=== PATIENT | male | born 1945 | race Caucasian/White ===

== ENCOUNTER 2016-04-22 06:22 | Outpatient (CLI) | payer OTHER, MEDICARE ==
[~2016-04-22] VITALS: Ht 175.3 cm; Wt 97.5 kg
[~2016-04-22 06:22] MED LIST: ASPI-586 PO; ASPI-983 PO; CEFD300C3 PO; CHOL200025 PO; CHRM1TAB PO; CINN500C2 PO; FAMO-119 PO; GLYB1TAB18 PO; HYDR-3812 PO; LISI10TA2 PO; MULT1TAB69 PO; TURM500C4 PO; [UNRECOGNIZED DRUG - OTHER] PO
--- OUTSIDE RECORDS SUMMARY | 2016-04-22 06:25 | XMS REPORT | Continuity of Care Document ---
Author Author [facility] Organization [facility] Address Unknown Phone Unavailable Support Name Relationship Address Phone VIELKA MENDOZA MD Caregiver #1 [facility] [place] [place] [address] Insurance Providers Payer Name Policy Number Subscriber Name Relationship [place] [employer] [id number] Jeni Campoverde 19 Self / Same As Patient Advance Directives Directive Response Recorded Date/Time Advance Directives No 03/31/16 11:06am Health Care Power of Vice President Commercial Bank No 03/31/16 11:06am Organ Donor No 03/31/16 [...] - 99.5) 03/29/2016 5:18pm Temperature (Calculated Celsius) 36.46963 degrees C (36.4 - 37.5) 03/29/2016 4:00pm [...] 9.00 inches 03/31/2016 11:05am Height (Calculated Centimeters) 175.645111 cm 03/31/2016 11:05am Weight (Pounds) 236 pounds 03/31/2016 11:05am Weight (Ounces) 0.0 oz 03/31/2016 11:05am Weight (Calculated Grams) 910542.80 gm 03/31/2016 11:05am Weight (Calculated Kilograms) 107.322492 kilograms 03/31/2016 11:05am Calculated BMI 34.9 03/31/2016 11:05am Results Pending Laboratory Results Test Name Collection Date/Time Procedures Procedure Status Date Provider(s) Tracing only of electrocardiogram Completed 03/27/16 VIELKA MENDOZA MD Encounters Encounter Location Arrival/Admit Date Discharge/Depart Date Attending Provider Departed Clinic [facility] 03/31/16 10:00am 03/31/16 11: 15am VIELKA MENDOZA MD Discharged Inpatient [facility] 03/26/16 11:56pm 6:05pm VIELKA MENDOZA MD Departed Clinic [facility] 03/22/16 1:18pm 03/22/16 3: 00pm AREN ANTHONY DO
== END 2016-04-22 10:56 ==
LOC: PREOP 06:22
PROVIDERS: ATTEND Surgery
DX: Z01.818 Encounter for other preprocedural examination (principal); C18.9 Malignant neoplasm of colon, unspecified; C78.7 Secondary malignant neoplasm of liver and intrahepatic bile duct

== ENCOUNTER 2016-04-23 05:52 | Day surgery (SDC) | payer OTHER, MEDICARE ==
[~2016-04-23] VITALS: Ht 175.3 cm; Wt 97.5 kg
--- OUTSIDE RECORDS SUMMARY | 2016-04-23 05:55 | XMS REPORT | Continuity of Care Document ---
Author Author [facility] Organization [facility] Address Unknown Phone Unavailable Support Name Relationship Address Phone VIELKA MENDOZA MD Caregiver #1 [facility] [place] [address] [place] [address] Insurance Providers Payer Name Policy Number Subscriber Name Relationship [place] [employer] [id number] Jeni Campoverde 19 Self / Same As Patient Advance Directives Directive Response Recorded Date/Time Advance Directives No 03/31/16 11:06am Health Care Power of Director Of Recruitment No 03/31/16 11:06am Organ Donor No 03/31/16 [...] - 99.5) 03/29/2016 5:18pm Temperature (Calculated Celsius) 36.31548 degrees C (36.4 - 37.5) 03/29/2016 4:00pm [...] 9.00 inches 03/31/2016 11:05am Height (Calculated Centimeters) 175.122703 cm 03/31/2016 11:05am Weight (Pounds) 236 pounds 03/31/2016 11:05am Weight (Ounces) 0.0 oz 03/31/2016 11:05am Weight (Calculated Grams) 082464.80 gm 03/31/2016 11:05am Weight (Calculated Kilograms) 107.410118 kilograms 03/31/2016 11:05am Calculated BMI 34.9 03/31/2016 11:05am Results Pending Laboratory Results Test Name Collection Date/Time Procedures Procedure Status Date Provider(s) Tracing only of electrocardiogram Completed 03/27/16 VIELKA MENDOZA MD Encounters Encounter Location Arrival/Admit Date Discharge/Depart Date Attending Provider Departed Clinic [facility] 03/31/16 10:00am 03/31/16 11: 15am VIELKA MENDOZA MD Discharged Inpatient [facility] 03/26/16 11:56pm 6:05pm VIELKA MENDOZA MD Departed Clinic [facility] 03/22/16 1:18pm 03/22/16 3: 00pm AREN ANTHONY DO
[2016-04-23] MEDS ORDERED: LACTATED RINGERS 1,000 ML IV PRN (06:27)
[2016-04-23] MEDS ORDERED: FAMOTIDINE 20MG/2ML IV (PEPCID) IV ONE (06:30)
[2016-04-23] MEDS ORDERED: ceFAZolin 2 GM IV (SDC ONLY) 50 ML ONE (06:34)
[2016-04-23] MEDS ORDERED: DEXTROSE 50% 50 ML (IMS) SYR IV ONE (06:45)
[2016-04-23] MEDS ORDERED: ceFAZolin 2GM/50 ML DEXTROSE (PREMIX) IV ONE (07:15)
[2016-04-23] MEDS ORDERED: BUP/EPI 0.25% 1:200,000 (MARCAINE) 30 ML VIAL ONE (07:17)
[2016-04-23] MEDS ORDERED: HEParin (CENTRAL IV FLUSH) 500 UNIT/5 ML SYR ONE (07:17)
[2016-04-23] MEDS ORDERED: fentaNYL INJECTION 100 MCG/2 ML AMP ONE (07:18)
[2016-04-23] MEDS ORDERED: proPOfol 200 MG/20 ML (DIPRIVAN) VIAL IV ONE (07:18)
[2016-04-23] MEDS ORDERED: MIDAZOLAM 2 MG/2 ML (VERSED) VIAL ONE (07:19)
[2016-04-23 07:43] VITALS: BP 118/69
--- NOTE | 2016-04-23 07:43 | Progress Note-Pre Operative ---
Pre-Operative Progress Note H&P Reviewed The H&P was reviewed, patient examined and no changes noted. Date H&P Reviewed: Apr 23, 2016 Time H&P Reviewed: 07:42 Pre-Operative Diagnosis: Metastatic colon cancer VIELKA MENDOZA MD Apr 23, 2016 7:43 am
[2016-04-23] MEDS ORDERED: BUP/EPI 0.25% 1:200,000 (MARCAINE) 30 ML VIAL INJ ONE (08:09)
[2016-04-23] MEDS ORDERED: HEParin (CENTRAL IV FLUSH) 500 UNIT/5 ML SYR IV ONE (08:20)
[2016-04-23] MEDS ORDERED: SEVOFLURANE (ULTANE) 15 ML INHAL SOLN ONE (08:36)
[2016-04-23] MEDS ORDERED: ONDANSETRON 4 MG/2 ML (SDV) Z0FRAN ONE (08:36)
[2016-04-23] MEDS ORDERED: LIDOCAINE PF 2% 10 ML (XYLOCAINE) AMP ONE (08:41)
--- NOTE | 2016-04-23 08:41 | Progress Note-Post Operative ---
Post-Operative Progess Note Pre-Operative Diagnosis METASTATIC COLON CANCER Post-Operative Diagnosis SAME Post-Op Procedure Note Date of Procedure: Apr 23, 2016 Name of Procedure: Aanloq-a-Vhdx placement Anesthesia Type Gen. VIELKA MENDOZA MD Apr 23, 2016 8:41 am
--- NOTE | 2016-04-23 08:42 | Discharge Inst-Simple/Standard ---
Discharge Inst-Standard Discharge Medications New, Converted or Re-Newed RX: Other Patient Instructions/Follow Up Plan of Care/Instructions/FU: dressings off in 48 hours. May use the port. Please remove the existing PICC line prior to discharge Activity as Tolerated: Yes Discharge Diet: VIELKA Perez MD Apr 23, 2016 8:42 am
[2016-04-23] MEDS ORDERED: LACTATED RINGERS 1,000 ML IV ONE (08:57)
[2016-04-23] MEDS ORDERED: morphine INJ 10 MG/ML 1ML (SYR OR VIAL) IV PRN (09:00)
[2016-04-23] MEDS ORDERED: fentaNYL INJECTION 100 MCG/2 ML AMP IV PRN (09:00)
[2016-04-23] MEDS ORDERED: ONDANSETRON 4 MG/2 ML (SDV) Z0FRAN IV ONE (09:00)
[2016-04-23 09:35] VITALS: BP 95/54
[2016-04-23 10:35] VITALS: BP_SYST 101; BP_SYST 102; BP_DIAS 55; BP_DIAS 56
--- NOTE | 2016-04-23 12:44 | Diagnostic Imaging Report ---
Intraoperative view of the chest. INDICATION: Port placement. Fluoroscopic time provided is 34 seconds. IMPRESSION: Provided image demonstrates part of a right IJ port catheter placed. Dictated by: Dictated on workstation # [id number]
--- NOTE | 2016-04-24 08:52 | OPERATIVE REPORT ---
PROCEDURE PHYSICIAN: VIELKA MENDOZA DATE OF PROCEDURE: 04/23/2016 PREOPERATIVE DIAGNOSIS: Metastatic colon cancer. POSTOPERATIVE DIAGNOSIS: Metastatic colon cancer. OPERATION: 1. Ultrasound localization of right internal jugular vein. 2. Intraoperative fluoroscopy. 3. Waqdmp-u-Xsbd placement. SURGEON: Dr. Mendoza. ANESTHESIA: General anesthesia. BLOOD LOSS: Minimal. FLUIDS: 500 mL crystalloids. TYPE OF WOUND: Type I (clean wound). INDICATION FOR THE PROCEDURE: This gentleman is due to receive systemic therapy to manage metastatic, synchronous colon cancer (cecum and sigmoid colon). To facilitate this, placing an Zmucne-c-Rndt was felt to be reasonable. Informed consent was obtained after reviewing the operative details and complications of hematoma, bacteremia, and malfunction of the catheter, requiring replacement. DESCRIPTION OF PROCEDURE: He was placed supine on the operative table and general anesthesia induced using a laryngeal mask airway. 2 grams of Ancef were administered intravenously as prophylaxis against wound infection. Sequential compression devices were placed around his legs, to minimize the risk of venous thrombosis. His neck and upper chest were prepared and draped in the usual sterile manner. Right internal jugular vein was localized using a 10 MHz ultrasound probe and a floppy guidewire introduced into the heart, under fluoroscopy. A subcutaneous pocket was created over the infraclavicular fossa and the Bravo catheter brought into the neck in a retrograde fashion. It was then advanced into the heart, under fluoroscopy, using the peel-away sheath. The catheter was then pulled back to the superior vena cava, under fluoroscopy and connected to the Zkmidi-q-Vytb, that had been primed with heparinized saline. I was able to aspirate and flush the system without any difficulty. The port was then secured to the pectoralis muscle using 2-0 Prolene sutures. The incision was then closed using 3-0 Vicryl for the subcutaneous tissue and 4-0 Vicryl for skin, in a subcuticular fashion. Preemptive analgesia was established using 0.25% Marcaine with epinephrine. He tolerated the procedure well, was extubated in the operating room and taken to the recovery room in a stable condition. [place], sponges, and instruments were correct at the end of the operation. Job ID: [id number] Dictated Date: 04/23/2016 08:40:23 Social Work Case Manager Date: 04/24/2016 08:48:35 / zonia SANTIAGO
== END 2016-04-23 11:10 | disposition home or self-care (01) ==
LOC: SDC 05:52
PROVIDERS: ATTEND Surgery
DX: C18.7 Malignant neoplasm of sigmoid colon (principal); C18.0 Malignant neoplasm of cecum
CPT/HCPCS: 82962; 87081

== ENCOUNTER → 2016-04-27 | Outpatient (CLI) | payer OTHER, MEDICARE ==
[~2016-04-27] MED LIST changes: +FAMO20TA3 PO; +METO5TAB75 PO; +ONDA8TAB12 PO; +PANT40TA3; +ZOLP5TAB PO
--- OUTSIDE RECORDS SUMMARY | 2016-04-27 09:15 | XMS REPORT | Continuity of Care Document ---
Author Author [facility] Organization [facility] Address Unknown Phone Unavailable Support Name Relationship Address Phone VIELKA MENDOZA MD Caregiver #1 [facility] [place] [address] [address] Insurance Providers Payer Name Policy Number Subscriber Name Relationship [place] [employer] [id number] Jeni Campoverde 19 Self / Same As Patient Advance Directives Directive Response Recorded Date/Time Advance Directives No 03/31/16 11:06am Health Care Power of Picking Machine Operator No 03/31/16 11:06am Organ Donor No 03/31/16 [...] - 99.5) 03/29/2016 5:18pm Temperature (Calculated Celsius) 36.40121 degrees C (36.4 - 37.5) 03/29/2016 4:00pm [...] 9.00 inches 03/31/2016 11:05am Height (Calculated Centimeters) 175.464444 cm 03/31/2016 11:05am Weight (Pounds) 236 pounds 03/31/2016 11:05am Weight (Ounces) 0.0 oz 03/31/2016 11:05am Weight (Calculated Grams) 455518.80 gm 03/31/2016 11:05am Weight (Calculated Kilograms) 107.488856 kilograms 03/31/2016 11:05am Calculated BMI 34.9 03/31/2016 11:05am Results Pending Laboratory Results Test Name Collection Date/Time Procedures Procedure Status Date Provider(s) Tracing only of electrocardiogram Completed 03/27/16 VIELKA MENDOZA MD Encounters Encounter Location Arrival/Admit Date Discharge/Depart Date Attending Provider Departed Clinic [facility] 03/31/16 10:00am 03/31/16 11: 15am VIELKA MENDOZA MD Discharged Inpatient [facility] 03/26/16 11:56pm 6:05pm VIELKA MENDOZA MD Departed Clinic [facility] 03/22/16 1:18pm 03/22/16 3: 00pm AREN ANTHONY DO
== END ==
LOC: RAD 09:11
PROVIDERS: ATTEND Internal Medicine Hematology & Oncology
DX: C18.2 Malignant neoplasm of ascending colon (principal); R59.0 Localized enlarged lymph nodes; R18.0 Malignant ascites; C78.7 Secondary malignant neoplasm of liver and intrahepatic bile duct

== ENCOUNTER 2016-04-28 12:28 | Inpatient (IN) | payer OTHER, MEDICARE ==
[~2016-04-28] VITALS: Ht 172.7 cm; Wt 95.3 kg
[~2016-04-28 12:28] MED LIST changes: -FAMO20TA3 PO; -METO5TAB75 PO; -ONDA8TAB12 PO; -PANT40TA3; -ZOLP5TAB PO
[2016-04-28] MEDS ORDERED: DEXTROSE 50% 50 ML (IMS) SYR IV NR (12:45)
[2016-04-28 13:30] VITALS: BP 140/65
[2016-04-28] MEDS ORDERED: inSUlin (REGULAR) HUMAN 1 UNIT/0.01 ML (CHARGE PER UNIT) SC NR (14:00)
--- OUTSIDE RECORDS SUMMARY | 2016-04-28 14:39 | XMS REPORT | Continuity of Care Document ---
Author Author [facility] Organization [facility] Address Unknown Phone Unavailable Support Name Relationship Address Phone VIELKA MENDOZA MD Caregiver #1 [facility] [place] [address] Insurance Providers Payer Name Policy Number Subscriber Name Relationship [place] [employer] [id number] Jeni Campoverde 19 Self / Same As Patient Advance Directives Directive Response Recorded Date/Time Advance Directives No 03/31/16 11:06am Health Care Power of Storage Management Architect No 03/31/16 11:06am Organ Donor No 03/31/16 [...] - 99.5) 03/29/2016 5:18pm Temperature (Calculated Celsius) 36.20857 degrees C (36.4 - 37.5) 03/29/2016 4:00pm [...] 9.00 inches 03/31/2016 11:05am Height (Calculated Centimeters) 175.994274 cm 03/31/2016 11:05am Weight (Pounds) 236 pounds 03/31/2016 11:05am Weight (Ounces) 0.0 oz 03/31/2016 11:05am Weight (Calculated Grams) 437180.80 gm 03/31/2016 11:05am Weight (Calculated Kilograms) 107.150281 kilograms 03/31/2016 11:05am Calculated BMI 34.9 03/31/2016 11:05am Results Pending Laboratory Results Test Name Collection Date/Time Procedures Procedure Status Date Provider(s) Tracing only of electrocardiogram Completed 03/27/16 VIELKA MENDOZA MD Encounters Encounter Location Arrival/Admit Date Discharge/Depart Date Attending Provider Departed Clinic [facility] 03/31/16 10:00am 03/31/16 11: 15am VIELKA MENDOZA MD Discharged Inpatient [facility] 03/26/16 11:56pm 6:05pm VIELKA MENDOZA MD Departed Clinic [facility] 03/22/16 1:18pm 03/22/16 3: 00pm AREN ANTHONY DO
[2016-04-28] MEDS: NS IV 1000 ML 1,000 ML IV SCH (14:48)
[2016-04-28] MEDS ORDERED: SOD POLYSTYRENE 30 GM/120 ML (KAYEXALATE) BULK BOTTLE PR NR (15:04)
[2016-04-28] MEDS ORDERED: FAMO20TA3 PO (15:14)
[2016-04-28] MEDS ORDERED: ONDA8TAB12 PO (15:14)
[2016-04-28] MEDS: SOD POLYSTERENE 15 GM/60 ML (KAYEXALATE) UNIT DOSE PO SCH ×2 (15:15→21:28)
--- NOTE | 2016-04-28 15:21 | Consultation-Cardiology ---
HPI-Cardiology Cardiology Consultation Date of Consultation 04/28/16 Date of Admission Indication: Hyperkalemia, LBBB HPI Patient is a very pleasant 70y/o male with metastatic colon CA followed by Dr. Daniels, former patient of Dr. Guevara. Presented to Dr. Santos office today to begin treatment. Lab work done revealed hyponatremia and hyperkalemia with K+ of 6.7. Patient was admitted for further management. Denies any CP, dyspnea, dizziness, lightheadedness or peripheral edema. Patient was seen and evaluated, he is a 70-year-old gentleman with metastatic colon cancer, came in today to receive chemotherapy, he was noted to have hyperkalemia. He denied any chest pain, palpitation, syncope or near syncopal episode, noted to have abnormal EKG with left bundle branch block. Home Medications & Allergies Allergies: Coded Allergies: No Known Drug Allergies (Unverified , 04/22/16) Home Medication List Reviewed: Yes AYP-Nqvvoq-Jphfuc Hx Patient Social History Alcohol Use: Denies Use Recreational Drug Use: No Smoking Status: Never a Smoker Recent Hopitalizations: Yes (COLON OBSTRUCTION) Immunizations Up To Date Tetanus Booster (TDap): Unknown Past Medical History Colon CA, HTN, LBBB Family Medical History Significant Family History: CAD Under 55 Years Old Family History: Hypertension 19 FATHER Myocardial infarction 19 FATHER Constitutional: No chills, No diaphoresis, No fever, No malaise, No weakness EENTM: No hearing loss, No nose congestion, No throat pain, No vision loss Respiratory: No cough, No dyspnea on exertion Cardiovascular: No chest pain, No edema, No Hx of Intervention, No palpitations Gastrointestinal: No abdominal pain Genitourinary: No dysuria, No frequency Musculoskeletal: No back pain Skin: No lesions, No rash Psychiatric/Neurological: Denies Anxiety, Denies Depressed Physical Exam Vital Signs Vital Sign - Last 12Hours 04/28/16 13:30 Temp 97.2 Pulse 75 Resp 18 B/P 140/65 Pulse Ox 97 O2 Delivery Room Air Capillary Refill : General Appearance: No Apparent Distress WD/WN HEENT: PERRL/EOMI Normal ENT Inspection Neck: Full Range of Motion Normal Inspection Non Tender Supple Respiratory: Chest Non Tender Lungs Clear Normal Breath Sounds No Accessory Muscle Use No Respiratory Distress Cardiovascular: Regular Rate, Rhythm No Edema No Gallop No JVD No Murmur Gastrointestinal: Soft Other (ileostomy bag) Rectal: Deferred Back: No CVA Tenderness Extremity: No Pedal Edema Neurologic/Psychiatric: Alert Oriented x3 hand packer II-XII Norm as Tested Skin: Normal Color Warm/Dry A/P-Cardiology Admission Diagnosis Hyperkalemia LBBB Metastatic Colon CA Anemia Assessment/Plan Hyperkalemia- K+ is 6.7. Will give Kayexalate and continue to monitor closely Abnormal EKG, with LBBB. Has hx of chronic LBBB He was seen and evaluated by Dr. Jerle Guevara. Had an echocardiogram in recent past. I will try to obtain a copy for our records. Metastatic colon CA- followed by Dr. Daniels. Anemia, iron deficiency, probably due to GI loss, continue to monitor. Hyponatremia- continue to monitor. Hypertension- patient was maintained on Lisinopril as outpatient. I will discontinue at this time secondary to hyperkalemia and continue to monitor BP/HR Diabetes mellitus, followed and managed by primary care physician Strong family history of heart disease with father had 2 heart attacks started in his 40s. Thank you for allowing us to participate in the management of Mr. Valenzuela. This is Mirna Louis PA-C as a scribe for Dr. Nassar. This is Dr. Nassar, I have seen and evaluated the patient with Mirna, he is a 70-year-old gentleman with hyperkalemia and metastatic colon cancer, denied any chest pain or shortness of breath. On examination lungs were clear to auscultation, abdomen has colostomy, heart is regular rate and rhythm normal S1- S2, EKG showing left bundle branch block which has been chronic. Potassium 6.7. Patient will be started on cakes delayed with close monitoring for pharmacy to adjust the dose. Hold lisinopril, will use calcium, blood pressure beta blockers for his hypertension. Patient will be started on chemotherapy. I will place him on telemetry and monitor his electrolytes closely. I reviewed the management plan and the finding with Mirna, I agree with the current scribe. I made a few modification to the note and I used Italic Font MIRNA MENENDEZ Apr 28, 2016 3:20 pm MICHAEL NASSAR MD Apr 28, 2016 4:23 pm
[2016-04-28] MEDS ORDERED: HYDR-3812 PO (15:24)
[2016-04-28] MEDS ORDERED: CATHETER FLUSH 10 ML SYR IV PRN (15:30)
[2016-04-28] MEDS ORDERED: RX-HYDROCODONE/APAP 5/325 MG #4 TAB PK PO PRN (16:00)
[2016-04-28] MEDS ORDERED: HYDROcodone/APAP 5 MG/325 MG (LORTAB) TAB PO PRN (16:30)
[2016-04-28 16:38] VITALS: BP 132/61
--- NOTE | 2016-04-28 17:21 | History & Physicial ---
History of Present Illness History of Present Illness Reason for visit/HPI This is a 70-year-old male who has known metastatic colon cancer who came to the cancer center today for chemotherapy teaching visit prior to initiation of his chemotherapy that was planned to start today. His labs however showed that he had a potassium of 6.7 and patient reported being very fatigued. He had to stop between walking from the lobby to the examination room because of weakness and fatigue. No report of chest pain. He has chronic dyspnea on exertion. Sodium was also noted to be low at 118. Both the hyperkalemia and worsening of his hyponatremia are acute findings. Date of Admission Apr 28, 2016 at 13:45 I consulted on this patient on 04/28/16 17:21 Attending Physician Meg Daniels MD Admitting Physician Lee Mariano DO Consult Allergies and Home Medications Allergies Coded Allergies: No Known Drug Allergies (Unverified , 04/28/16) Home Medications 2 TAB PO DAILY (Reported) Cholecalciferol (Vitamin D3) 2,000 Unit Tablet 2,000 UNIT PO DAILY (Reported) Ulices/Easotn/ Bt-Org Peel/Gr T 1 Each Tablet 1 TAB PO BID (Reported) Famotidine 20 Mg Tablet 20 MG PO BID (Reported) Hydrocodone/Acetaminophen 1 Each Tablet 1-2 TAB PO EVERY 4-6 HOURS PRN PRN PAIN (Reported) Lisinopril 10 Mg Tablet 10 MG PO HS (Reported) Ondansetron HCl 8 Mg Tablet 8 MG PO Q8H PRN PRN NAUSEA/VOMITING (Reported) Past Mowgrdn-Gcgtnh-Ywdwik Hx Patient Social History Alcohol Use: Denies Use Recreational Drug Use: No Smoking Status: Never a Smoker Recent Hopitalizations: Yes (COLON OBSTRUCTION) Immunizations Up To Date Tetanus Booster (TDap): Unknown Seasonal Allergies Seasonal Allergies: No Surgeries HX Surgeries: Yes (CYST FROM TAILBONE, COLON RESECTION) Surgeries: Appendectomy Respiratory Hx Respiratory Disorders: No (LYMPHADENOPATHY, MEDIASTINAL) Cardiovascular Hx Cardiovascular Disorders: Yes Cardiac Disorders: Hypertension Neurological Hx Neurological Disorders: No Reproductive System Hx Reproductive Disorders: No Sexually Transmitted Disease: No HIV/AIDS: No Genitourinary Hx Genitourinary Disorders: No Gastrointestinal Hx Gastrointestinal Disorders: Yes (ABD PAIN, RECENT COLON OBSTRUCTION) Gastrointestinal Disorders: Gastroesophageal Reflux, Obstructive Bowel Musculoskeletal Hx Musculoskeletal Disorders: No Endocrine Hx Endocrine Disorders: Yes Endocrine Disorders: Diabetes, Non-Insulin dep HEENT HX ENT Disorders: Yes (GLASSES) Loss of Vision: Bilateral Hearing Impairment: Denies 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) Cancer: Colon Psychosocial Hx Psychiatric Problems: No Integumentary HX Skin/Integumentary Disorder: No Blood Transfusions Hx Blood Disorders: Yes (ANEMIA) Adverse Reaction to a Blood Tr: No (RECENT TRANSFUSION WITHOUT PROBLEMS) Family Medical History Significant Family History: CAD Under 55 Years Old Family Hx: Hypertension 19 FATHER Myocardial infarction 19 FATHER Constitutional: malaise weakness Respiratory: see HPI dyspnea on exertion Gastrointestinal: heartburn Physical Exam Vital Signs Vital Sign - Last 12Hours 04/28/16 13:30 Temp 97.2 Pulse 75 Resp 18 B/P 140/65 Pulse Ox 97 O2 Delivery Room Air Capillary Refill : General Appearance: No Apparent Distress Obese HEENT: PERRL/EOMI Neck: Non Tender Supple Respiratory: Lungs Clear Normal Breath Sounds No Respiratory Distress Accessory Muscle Use Cardiovascular: Regular Rate, Rhythm No JVD Gastrointestinal: Normal Bowel Sounds Other (Ileostomy bag in place with dark soft brown stool in bag) Rectal: Deferred Back: Normal Inspection No CVA Tenderness Neurologic/Psychiatric: Alert Oriented x3 No Motor/Sensory Deficits wrapper selector II- XII Norm as Tested Comments Laboratory Tests 04/28/16 17:15: Blood Urea Nitrogen 49H, Carbon Dioxide Level 20L, Chloride Level 91L, Glucose Level 166H, Hematocrit 32L, Hemoglobin 10.8L, Lymphocytes # (Auto) 0.6L, Lymphocytes (%) (Auto) 6L, Mean Corpuscular Hemoglobin 21L, Mean Corpuscular Volume 63L, Monocytes # (Auto) 1.3H, Neutrophils # (Auto) 8.4H, Neutrophils (%) (Auto) 79H, Platelet Count 450H, Potassium Level 6.1H, Red Cell Distribution Width 23.8H, Sodium Level 118*L 04/28/16 20:25: Potassium Level 6.1H Laboratory Tests 04/28/16 17:15 04/28/16 20:25 Assessment/Plan Assessment and Plan Hyperkalemia-glucose and insulin given and Kayexalate every 6 hours is being administered; potassium has improved from 6.7-6.1. Hyponatremia-careful IV rehydration with normal saline, especially in view of Kayexalate causing diarrhea. Abnormal EKG--chronic left bundle branch block with T waves more prominent on current study than on prior a. Consultation from cardiology has been obtained and reviewed and Dr. Nassar' s assistance is appreciated. Metastatic colon cancer with metastases to liver, abdominal lymph nodes, peritoneum, possibly lung; patient has had stable lung nodule and PET scans has been ordered to further evaluate. 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
[2016-04-28 17:24] LABS: BASOPHILS % (AUTO) 0 % (0-10); EOSINOPHILS # (AUTO) 0.3 10^3/uL (0.0-0.3); EOSINOPHILS % (AUTO) 3 % (0-10); LYMPHOCYTES # (AUTO) 0.6 X 10^3 (1.0-4.0); LYMPHOCYTES % (AUTO) 6 % (12-44); MEAN CORPUSCULAR HEMOGLOBIN 21 PG (25-34); MEAN CORPUSCULAR HGB CONC 33 G/DL (32-36); MEAN CORPUSCULAR VOLUME 63 FL (80-99); MEAN PLATELET VOLUME 10.4 FL (7.4-10.4); MONOCYTES # (AUTO) 1.3 X 10^3 (0.0-1.0); MONOCYTES % (AUTO) 12 % (0-12); NEUTROPHILS # (AUTO) 8.4 X 10^3 (1.8-7.8); NEUTROPHILS % (AUTO) 79 % (42-75); PLATELET COUNT 450 10^3/uL (130-400); RED BLOOD COUNT 5.11 10^6/uL (4.35-5.85); RED CELL DISTRIBUTION WIDTH 23.8 % (10.0-14.5); WHITE BLOOD COUNT 10.6 10^3/uL (4.3-11.0)
[2016-04-28 17:43] LABS: ALANINE AMINOTRANSFERASE 27 U/L (0-55); ALBUMIN 3.7 G/DL (3.2-4.5); ANION GAP 7 MMOL/L (5-14); ASPARTATE AMINO TRANSFERASE 21 U/L (5-34); BILIRUBIN,TOTAL 0.5 MG/DL (0.1-1.0); BLOOD UREA NITROGEN 49 MG/DL (7-18); BUN/CREATININE RATIO 43; CALCIUM 9.3 MG/DL (8.5-10.1); CARBON DIOXIDE 20 MMOL/L (21-32); CHLORIDE 91 MMOL/L (98-107); CREATININE SERUM 1.15 MG/DL (0.60-1.30); GFR ESTIMATED > 60; GLUCOSE 166 MG/DL (70-105); POTASSIUM 6.1 MMOL/L (3.6-5.0); TOTAL PROTEIN 7.4 G/DL (6.4-8.2)
[2016-04-28 17:49] LABS: SODIUM 118 MMOL/L (135-145)
[2016-04-28] MEDS ORDERED: FLU TRIvalent (5 YOA+) 2016-17 (AFLURIA) 0.5 ML IM ONE (19:30)
[2016-04-28] MEDS ORDERED: ZOLPIDEM 5 MG (AMBIEN) TAB PO PRN (19:45)
[2016-04-28] MEDS ORDERED: ACETAMINOPHEN 325 MG TABLET/CAPLET (TYLENOL) PO PRN (19:45)
[2016-04-28 20:00] VITALS: BP 117/61
[2016-04-28] MEDS ORDERED: FAMOTIDINE 20 MG (PEPCID) TABLET PO SCH (21:00)
[2016-04-28] MEDS: diphenhydrAMINE 25 MG TAB (BENADRYL) PO PRN (21:28)
[2016-04-29] VITALS: BP 128/59
[2016-04-29 03:11] LABS: BASOPHILS % (AUTO) 0 % (0-10); EOSINOPHILS # (AUTO) 0.3 10^3/uL (0.0-0.3); EOSINOPHILS % (AUTO) 3 % (0-10); LYMPHOCYTES # (AUTO) 0.6 X 10^3 (1.0-4.0); LYMPHOCYTES % (AUTO) 6 % (12-44); MEAN CORPUSCULAR HEMOGLOBIN 21 PG (25-34); MEAN CORPUSCULAR HGB CONC 33 G/DL (32-36); MEAN CORPUSCULAR VOLUME 63 FL (80-99); MEAN PLATELET VOLUME 9.9 FL (7.4-10.4); MONOCYTES # (AUTO) 1.3 X 10^3 (0.0-1.0); MONOCYTES % (AUTO) 13 % (0-12); NEUTROPHILS # (AUTO) 7.8 X 10^3 (1.8-7.8); NEUTROPHILS % (AUTO) 77 % (42-75); PLATELET COUNT 414 10^3/uL (130-400); RED BLOOD COUNT 5.07 10^6/uL (4.35-5.85); WHITE BLOOD COUNT 10.1 10^3/uL (4.3-11.0)
[2016-04-29 03:25] LABS: ANION GAP 10 MMOL/L (5-14); BLOOD UREA NITROGEN 44 MG/DL (7-18); BUN/CREATININE RATIO 41; CALCIUM 9.6 MG/DL (8.5-10.1); CARBON DIOXIDE 16 MMOL/L (21-32); CHLORIDE 94 MMOL/L (98-107); CREATININE SERUM 1.08 MG/DL (0.60-1.30); GFR ESTIMATED > 60; GLUCOSE 128 MG/DL (70-105); POTASSIUM 5.8 MMOL/L (3.6-5.0)
[2016-04-29 03:26] LABS: SODIUM 120 MMOL/L (135-145)
[2016-04-29 04:00] VITALS: BP 137/72
[2016-04-29] MEDS: SOD POLYSTERENE 15 GM/60 ML (KAYEXALATE) UNIT DOSE PO SCH ×4 (04:29→21:32)
[2016-04-29] MEDS: NS IV 1000 ML 1,000 ML IV SCH ×2 (04:50→10:38)
--- NOTE | 2016-04-29 07:50 | Cardiology Progress Note ---
Subjective Subjective/Events-last exam patient sent down in bed, feeling better, denied any chest pain or shortness of breath. No arrhythmia was detected on telemetry, potassium level is better Review of Systems General: No Chills, No Night Sweats, No Fatigue, No Malaise, No Appetite, No Other HEENT: No Head Aches, No Visual Changes, No Eye Pain, No Ear Pain, No Dysphasia , No Sinus Congestion, No Post Nasal Drip, No Sore Throat, No Other Pulmonary: No Dyspnea, No Cough, No Pleuritic Chest Pain, No Other Objective-Cardiology Exam Last Set of Vital Signs Vital Signs 04/29/16 04/29/16 04:00 07:00 Temp 96.2 Pulse 72 Resp 19 B/P 137/72 Pulse Ox 94 O2 Delivery Room Air Capillary Refill : Less Than 3 Seconds I&O Bad tableGeneral: Alert, Oriented X3, Cooperative HEENT: Atraumatic, PERRLA Neck: Supple, No JVD, No Thyromegaly Lungs: Clear to Auscultation, Normal Air Movement Heart: Regular Rate, Normal S1, Normal S2, No Murmurs Abdomen: Normal Bowel Sounds, Soft, No Tenderness, No Hepatosplenomegaly, No Masses, Other (colostomy bag) Extremities: No Clubbing, No Cyanosis, No Edema, Normal Pulses, No Tenderness/ Swelling Skin: No Rashes, No Breakdown, No Significant Lesion Neuro: Normal Gait, Normal Speech, Strength at 5/5 X4 Ext, Normal Tone, Sensation Intact Psych/Mental Status: Mental Status NL, Mood NL Results Lab Laboratory Tests 04/28/16 17:15 04/28/16 20:25 04/29/16 02:58 A/P-Cardiology Admission Diagnosis Hyperkalemia LBBB Metastatic Colon CA Anemia Assessment/Plan Hyperkalemia, improving slowly, and 20 to monitor electrolytes, telemetry did not show any arrhythmia. Hyponatremia, receiving IV fluids slowly. Monitor electrolytes. Abnormal EKG, with LBBB. Has hx of chronic LBBB He was seen and evaluated by Dr. Jerel Guevara. Had an echocardiogram in recent past. I will try to obtain a copy for our records. Metastatic colon CA- followed by Dr. Daniels. Anemia, iron deficiency, probably due to GI loss, continue to monitor. Hypertension- patient was maintained on Lisinopril as outpatient, it was discontinued. Continue to monitor, I will consider using beta blockers or calcium channel blockers instead. Diabetes mellitus, followed and managed by primary care physician Strong family history of heart disease with father had 2 heart attacks started in his 40s. Clinical Quality Measures DVT/VTE Risk/Contraindication: Risk Factor Score Per Nursin RFS Level Per Nursing on Admit: 4+=Very High MICHAEL JANSEN MD Apr 29, 2016 07:50
[2016-04-29 08:00] VITALS: BP 110/69
[2016-04-29] MEDS ORDERED: NON-FORMULARY MEDICATION 1 EA EA (Cholecalciferol (Vitamin D3) (Vitamin D3) 2,000 UNIT) PO SCH (09:00)
[2016-04-29] MEDS: FAMOTIDINE 20MG/2ML IV (PEPCID) IV SCH (10:37)
[2016-04-29] MEDS: VITAMIN D3 1,000 UNITS (CHOLECALCIFEROL) TABLET PO SCH (10:37)
[2016-04-29 12:20] VITALS: BP 134/67
--- NOTE | 2016-04-29 13:10 | Progress Note (SOAP) ---
Subjective Subjective/Events-last exam Feeling better today; Wero is working; Objective Exam Vital Signs Date Time Temp Pulse Resp B/P Pulse Ox O2 Delivery O2 Flow Rate FiO2 04/29/16 08:00 98.2 62 18 110/69 97 Room Air 04/29/16 07:00 72 04/29/16 04:00 96.2 75 19 137/72 94 Room Air 04/29/16 01:00 102 04/29/16 00:00 96.4 85 18 128/59 95 Room Air 04/28/16 21:00 95 Room Air 04/28/16 20:00 97.6 75 20 117/61 98 Room Air 04/28/16 19:00 90 04/28/16 18:44 Room Air 04/28/16 16:38 97.1 76 16 132/61 97 Room Air 04/28/16 13:30 97.2 75 18 140/65 97 Room Air I & O 04/29/16 07:00 Intake Total 1290 ml Output Total 4200 ml Balance -2910 ml Capillary Refill : Less Than 3 Seconds General Appearance: No Apparent Distress Obese HEENT: PERRL/EOMI Neck: Full Range of Motion Normal Inspection Non Tender Supple Respiratory: Lungs Clear Normal Breath Sounds No Accessory Muscle Use Cardiovascular: Regular Rate, Rhythm No Edema No JVD Gastrointestinal: normal bowel sounds non tender soft other (ileostomy bag with brown liquid stool in bag) Extremity: Normal Inspection Non Tender No Calf Tenderness Neurologic/Psychiatric: Alert Oriented x3 No Motor/Sensory Deficits Normal 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 Norm as Tested Skin: Normal Color Results Lab Laboratory Tests 04/28/16 17:15 04/28/16 20:25 04/29/16 02:58 04/29/16 08:45 Laboratory Tests 04/28/16 17:15: Alanine Aminotransferase (ALT/SGPT) 27, Albumin 3.7, Alkaline Phosphatase 128, Anion Gap 7, Aspartate Amino Transf (AST/SGOT) 21, BUN/Creatinine Ratio 43, Basophils # (Auto) 0.0, Basophils (%) (Auto) 0, Blood Urea Nitrogen 49H, Calcium Level 9.3, Carbon Dioxide Level 20L, Chloride Level 91L, Creatinine 1.15 , Eosinophils # (Auto) 0.3, Eosinophils (%) (Auto) 3, Estimat Glomerular Filtration Rate > 60, Glucose Level 166H, Hematocrit 32L, Hemoglobin 10.8L, Lymphocytes # (Auto) 0.6L, Lymphocytes (%) (Auto) 6L, Mean Corpuscular Hemoglobin 21L, Mean Corpuscular Hemoglobin Concent 33, Mean Corpuscular Volume 63L, Mean Platelet Volume 10.4, Monocytes # (Auto) 1.3H, Monocytes (%) (Auto) 12 , Neutrophils # (Auto) 8.4H, Neutrophils (%) (Auto) 79H, Platelet Count 450H, Potassium Level 6.1H, Red Blood Count 5.11, Red Cell Distribution Width 23.8H, Sodium Level 118*L, Total Bilirubin 0.5, Total Protein 7.4, White Blood Count 10.6 04/28/16 20:25: Potassium Level 6.1H 04/29/16 02:58: Anion Gap 10, BUN/Creatinine Ratio 41, Basophils # (Auto) 0.0, Basophils (%) ( Auto) 0, Blood Urea Nitrogen 44H, Calcium Level 9.6, Carbon Dioxide Level 16L, Chloride Level 94L, Creatinine 1.08, Eosinophils # (Auto) 0.3, Eosinophils (%) ( Auto) 3, Estimat Glomerular Filtration Rate > 60, Glucose Level 128H, Hematocrit 32L, Hemoglobin 10.6L, Lymphocytes # (Auto) 0.6L, Lymphocytes (%) ( Auto) 6L, Mean Corpuscular Hemoglobin 21L, Mean Corpuscular Hemoglobin Concent 33, Mean Corpuscular Volume 63L, Mean Platelet Volume 9.9, Monocytes # (Auto) 1.3H, Monocytes (%) (Auto) 13H, Neutrophils # (Auto) 7.8, Neutrophils (%) (Auto ) 77H, Platelet Count 414H, Potassium Level 5.8H, Red Blood Count 5.07, Red Cell Distribution Width 24.0H, Sodium Level 120*L, White Blood Count 10.1 04/29/16 08:45: Potassium Level 5.8H Assessment/Plan Assessment/Plan Assess & Plan/Chief Complaint Hyperkalemia- potassium has improved from 6.7->6.1-> 5.8. Hyponatremia- Continue careful IV rehydration with normal saline, sodium has improved to 120; Abnormal EKG-- Dr. Nassar' is following. Metastatic colon cancer with metastases to liver, abdominal lymph nodes, peritoneum, possibly lung; patient has had stable lung nodule and PET scans has been ordered to further evaluate. Chemotherapy to start as an outpatient early next week. Iron deficiency anemia--patient has received Injectafer (parenteral iron) as outpatient. 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
[2016-04-29 16:00] VITALS: BP 132/83
[2016-04-29] MEDS ORDERED: ONDANSETRON 4 MG/2 ML (SDV) Z0FRAN IV PRN (18:30)
[2016-04-29 20:08] VITALS: BP 148/77
[2016-04-29] MEDS: diphenhydrAMINE 25 MG TAB (BENADRYL) PO PRN (21:32)
[2016-04-30] VITALS: BP 123/59
[2016-04-30] MEDS: NS IV 1000 ML 1,000 ML IV SCH ×3 (02:10→18:10)
[2016-04-30] MEDS: SOD POLYSTERENE 15 GM/60 ML (KAYEXALATE) UNIT DOSE PO SCH ×4 (03:07→20:17)
[2016-04-30 04:00] VITALS: BP 136/81
[2016-04-30 06:23] LABS: BASOPHILS % (AUTO) 0 % (0-10); EOSINOPHILS # (AUTO) 0.4 10^3/uL (0.0-0.3); EOSINOPHILS % (AUTO) 4 % (0-10); LYMPHOCYTES # (AUTO) 0.7 X 10^3 (1.0-4.0); LYMPHOCYTES % (AUTO) 7 % (12-44); MEAN CORPUSCULAR HEMOGLOBIN 21 PG (25-34); MEAN CORPUSCULAR HGB CONC 33 G/DL (32-36); MEAN CORPUSCULAR VOLUME 64 FL (80-99); MEAN PLATELET VOLUME 10.3 FL (7.4-10.4); MONOCYTES # (AUTO) 1.1 X 10^3 (0.0-1.0); MONOCYTES % (AUTO) 13 % (0-12); NEUTROPHILS # (AUTO) 6.7 X 10^3 (1.8-7.8); NEUTROPHILS % (AUTO) 75 % (42-75); PLATELET COUNT 378 10^3/uL (130-400); WHITE BLOOD COUNT 8.9 10^3/uL (4.3-11.0)
[2016-04-30 06:47] LABS: ANION GAP 9 MMOL/L (5-14); BLOOD UREA NITROGEN 34 MG/DL (7-18); BUN/CREATININE RATIO 32; CALCIUM 9.1 MG/DL (8.5-10.1); CARBON DIOXIDE 17 MMOL/L (21-32); CHLORIDE 95 MMOL/L (98-107); CREATININE SERUM 1.05 MG/DL (0.60-1.30); GFR ESTIMATED > 60; GLUCOSE 139 MG/DL (70-105); POTASSIUM 5.6 MMOL/L (3.6-5.0)
[2016-04-30 07:06] LABS: SODIUM 121 MMOL/L (135-145)
[2016-04-30] MEDS: FAMOTIDINE 20MG/2ML IV (PEPCID) IV SCH (07:59)
[2016-04-30] MEDS: VITAMIN D3 1,000 UNITS (CHOLECALCIFEROL) TABLET PO SCH (07:59)
[2016-04-30 08:00] VITALS: BP 132/79
--- NOTE | 2016-04-30 09:16 | Cardiology Progress Note ---
Subjective Subjective/Events-last exam Patient is in bed, feeling better, eating breakfast, no new complaint Review of Systems General: No Chills, No Night Sweats, No Fatigue, No Malaise, No Appetite, No Other HEENT: No Head Aches, No Visual Changes, No Eye Pain, No Ear Pain, No Dysphasia , No Sinus Congestion, No Post Nasal Drip, No Sore Throat, No Other Pulmonary: No Dyspnea, CoughNo Pleuritic Chest Pain, No Other Cardiovascular: No: Chest Pain, Edema, Lt Headedness, Orthopnea, Other, Palpitations, Paroxysmal Noc. Dyspnea Objective-Cardiology Exam Last Set of Vital Signs Vital Signs 04/30/16 08:00 Temp 97.2 Pulse 78 Resp 20 B/P 132/79 Pulse Ox 97 O2 Delivery Room Air Capillary Refill : Less Than 3 Seconds I&O Intake and Output 04/30/16 00:00 Intake Total 2860 ml Output Total 5550 ml Balance -2690 ml Intake Oral 2860 ml Output Urine Total 2250 ml Stool Total 3300 ml # Voids 1 General: Alert, Oriented X3, Cooperative HEENT: Atraumatic, PERRLA Neck: Supple, No JVD, No Thyromegaly Lungs: Clear to Auscultation, Normal Air Movement Heart: Regular Rate, Normal S1, Normal S2, No Murmurs Abdomen: Normal Bowel Sounds, Soft, No Tenderness, No Hepatosplenomegaly, No Masses, Other (colostomy bag) Extremities: No Clubbing, No Cyanosis, No Edema, Normal Pulses, No Tenderness/ Swelling Skin: No Rashes, No Breakdown, No Significant Lesion Neuro: Normal Gait, Normal Speech, Strength at 5/5 X4 Ext, Normal Tone, Sensation Intact Psych/Mental Status: Mental Status NL, Mood NL Results Lab Laboratory Tests 04/29/16 13:45 04/29/16 21:00 04/30/16 02:30 04/30/16 06:00 04/30/16 08:00 A/P-Cardiology Admission Diagnosis Hyperkalemia LBBB Metastatic Colon CA Anemia Assessment/Plan Hyperkalemia, Hyponatremia, improving slowly, managed by Dr Daniels Abnormal EKG, with LBBB. Has hx of chronic LBBB He was seen and evaluated by Dr. Jerel Guevara. currently stable, continue to monitor Metastatic colon CA- followed by Dr. Daniels. Anemia, iron deficiency, probably due to GI loss, continue to monitor. Hypertension- patient was maintained on Lisinopril as outpatient, it was discontinued. Continue to monitor, I will consider using beta blockers or calcium channel blockers instead. Diabetes mellitus, followed and managed by primary care physician Strong family history of heart disease with father had 2 heart attacks started in his 40s. Dr Tillman is covering for the weekend, he will see him if needed Clinical Quality Measures DVT/VTE Risk/Contraindication: Risk Factor Score Per Nursin RFS Level Per Nursing on Admit: 4+=Very High MICHAEL JANSEN MD Apr 30, 2016 09:16
[2016-04-30 12:00] VITALS: BP 129/71
--- NOTE | 2016-04-30 13:51 | Progress Note (SOAP) ---
Subjective Subjective/Events-last exam Patient is feeling much better. Denies shortness of breath, dizziness or chest pain. Objective Exam Vital Signs Date Time Temp Pulse Resp B/P Pulse Ox O2 Delivery O2 Flow Rate FiO2 04/30/16 12:00 99.1 85 18 129/71 99 Room Air 04/30/16 08:30 Room Air 04/30/16 08:00 97.2 78 20 132/79 97 Room Air 04/30/16 07:00 74 04/30/16 04:00 97.6 81 18 136/81 94 Room Air 04/30/16 01:00 79 04/30/16 01:00 83 04/30/16 00:00 97.7 81 17 123/59 94 Room Air 04/29/16 20:27 95 Room Air 04/29/16 20:08 97.7 77 20 148/77 94 Room Air 04/29/16 19:00 84 04/29/16 16:00 96.5 81 20 132/83 99 Room Air I & O 04/30/16 07:00 Intake Total 4210 ml Output Total 4600 ml Balance -390 ml Capillary Refill : Less Than 3 Seconds General Appearance: No Apparent Distress Obese HEENT: PERRL/EOMI Neck: Full Range of Motion Normal Inspection Non Tender Respiratory: Lungs Clear Normal Breath Sounds No Accessory Muscle Use No Respiratory Distress Cardiovascular: Regular Rate, Rhythm No Edema No Gallop No JVD Gastrointestinal: normal bowel sounds non tender soft other (obese abdomen with ileostomy bag in place;) Extremity: Normal Inspection Normal Range of Motion Non Tender No Calf Tenderness No Pedal Edema Neurologic/Psychiatric: Alert Oriented x3 No Motor/Sensory Deficits Normal 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 Norm as Tested Results Lab Laboratory Tests 04/29/16 21:00 04/30/16 02:30 04/30/16 06:00 04/30/16 08:00 Laboratory Tests 04/29/16 21:00: Potassium Level 5.6H 04/30/16 02:30: Potassium Level 5.5H 04/30/16 06:00: Potassium Level 5.6H, Anion Gap 9, BUN/Creatinine Ratio 32, Basophils # (Auto) 0.0, Basophils (%) (Auto) 0, Blood Urea Nitrogen 34H, Calcium Level 9.1, Carbon Dioxide Level 17L, Chloride Level 95L, Creatinine 1.05, Eosinophils # (Auto) 0.4H, Eosinophils (%) (Auto) 4, Estimat Glomerular Filtration Rate > 60, Glucose Level 139H, Hematocrit 33L, Hemoglobin 10.7L, Lymphocytes # (Auto) 0.7L , Lymphocytes (%) (Auto) 7L, Mean Corpuscular Hemoglobin 21L, Mean Corpuscular Hemoglobin Concent 33, Mean Corpuscular Volume 64L, Mean Platelet Volume 10.3, Monocytes # (Auto) 1.1H, Monocytes (%) (Auto) 13H, Neutrophils # (Auto) 6.7, Neutrophils (%) (Auto) 75, Platelet Count 378, Red Blood Count 5.10, Red Cell Distribution Width 24.0H, Sodium Level 121*L, White Blood Count 8.9 04/30/16 08:00: Potassium Level 5.6H Assessment/Plan Assessment/Plan Assess & Plan/Chief Complaint Hyperkalemia- potassium has improved from 6.7->6.1-> 5.8->5.6. Hyponatremia- Continue careful IV rehydration with normal saline, sodium has improved to 121; Abnormal EKG-- Dr. Nassar' is following. Metastatic colon cancer with metastases to liver, abdominal lymph nodes, peritoneum, possibly lung; patient has had stable lung nodule and PET scans has been ordered to further evaluate. Chemotherapy to start as an outpatient early next week. Iron deficiency anemia--patient has received Injectafer (parenteral iron) as outpatient. 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 Dr. Alcala will be covering me this weekend. Diagnosis/Problems: Clinical Quality Measures DVT/VTE Risk/Contraindication: Risk Factor Score Per Nursin RFS Level Per Nursing on Admit: 4+=Very High MEG MOISE MD Apr 30, 2016 13:51
[2016-04-30 15:45] VITALS: BP 152/75
[2016-04-30 20:00] VITALS: BP 151/71
[2016-05-01] VITALS: BP 154/69
[2016-05-01] MEDS: NS IV 1000 ML 1,000 ML IV SCH (02:04)
[2016-05-01] MEDS: SOD POLYSTERENE 15 GM/60 ML (KAYEXALATE) UNIT DOSE PO SCH ×2 (03:21→08:55)
[2016-05-01 04:00] VITALS: BP 133/68
[2016-05-01 05:41] LABS: BASOPHILS % (AUTO) 0 % (0-10); EOSINOPHILS # (AUTO) 0.3 10^3/uL (0.0-0.3); EOSINOPHILS % (AUTO) 3 % (0-10); LYMPHOCYTES # (AUTO) 0.7 X 10^3 (1.0-4.0); LYMPHOCYTES % (AUTO) 7 % (12-44); MEAN CORPUSCULAR HEMOGLOBIN 21 PG (25-34); MEAN CORPUSCULAR HGB CONC 33 G/DL (32-36); MEAN CORPUSCULAR VOLUME 64 FL (80-99); MONOCYTES # (AUTO) 1.2 X 10^3 (0.0-1.0); MONOCYTES % (AUTO) 12 % (0-12); NEUTROPHILS # (AUTO) 7.6 X 10^3 (1.8-7.8); NEUTROPHILS % (AUTO) 77 % (42-75); PLATELET COUNT 374 10^3/uL (130-400); RED BLOOD COUNT 5.17 10^6/uL (4.35-5.85); RED CELL DISTRIBUTION WIDTH 24.3 % (10.0-14.5); WHITE BLOOD COUNT 9.8 10^3/uL (4.3-11.0)
[2016-05-01 06:13] LABS: ANION GAP 9 MMOL/L (5-14); BLOOD UREA NITROGEN 30 MG/DL (7-18); BUN/CREATININE RATIO 31; CARBON DIOXIDE 18 MMOL/L (21-32); CHLORIDE 98 MMOL/L (98-107); CREATININE SERUM 0.98 MG/DL (0.60-1.30); GFR ESTIMATED > 60; GLUCOSE 141 MG/DL (70-105)
[2016-05-01 06:18] LABS: SODIUM 125 MMOL/L (135-145)
[2016-05-01 08:20] VITALS: BP 145/76
[2016-05-01] MEDS: VITAMIN D3 1,000 UNITS (CHOLECALCIFEROL) TABLET PO SCH (08:55)
[2016-05-01] MEDS: FAMOTIDINE 20MG/2ML IV (PEPCID) IV SCH (08:55)
--- NOTE | 2016-05-01 10:44 | Progress Note-Standard ---
Standard Progress Note Progress Notes/Assess & Plan Progress/Assessment & Plan 70-year-old male with history of metastatic colon cancer, status post diverting ileostomy, who was scheduled to start outpatient chemotherapy with the FOLFOX type regimen was admitted to the hospital because of significant hyperkalemia and hyponatremia. He gives significant weight loss recently because of his surgery. He has diabetes mellitus and has mild renal insufficiency. Initially he required treatment with the insulin and glucose followed by Kayexalate every 6 hours which is continuing. He was also on low-dose normal saline with improvement in sodium level. Clinically he is feeling better and is eating better. The ileostomy is functioning well. No new complaints of. Laboratory Tests 04/30/16 14:02 04/30/16 20:23 05/01/16 05:35 A/P: 1. Hyperkalemia of undetermined etiology, currently on treatment with Kayexalate every 6 hours with the potassium in the upper normal range. Today I will stop the Kayexalate and recheck the lab work tomorrow morning. He'll be able to go home if this is stable. 2. Hyponatremia of undetermined etiology, improving on low-dose normal saline. Today I will stop the IV fluids also. 3. We'll ask dietitian off nursing to provide patient with a history of potassium rich foods and to either to avoid or restrict them temporarily. 4. Metastatic colon cancer, scheduled to start chemotherapy on an outpatient basis next week. He was instructed to maintain this appointment. NITO BERNAL May 01, 2016 10:44
[2016-05-01 12:00] VITALS: BP 138/76
[2016-05-01 16:37] VITALS: BP 154/70
[2016-05-01] MEDS: FAMOTIDINE 20 MG (PEPCID) TABLET PO SCH (20:34)
[2016-05-01 20:38] VITALS: BP 137/68
[2016-05-02] VITALS: BP 137/74
[2016-05-02 04:00] VITALS: BP 146/94
[2016-05-02 05:46] LABS: BASOPHILS % (AUTO) 0 % (0-10); EOSINOPHILS # (AUTO) 0.3 10^3/uL (0.0-0.3); EOSINOPHILS % (AUTO) 4 % (0-10); LYMPHOCYTES # (AUTO) 0.6 X 10^3 (1.0-4.0); LYMPHOCYTES % (AUTO) 7 % (12-44); MEAN CORPUSCULAR HEMOGLOBIN 22 PG (25-34); MEAN CORPUSCULAR HGB CONC 33 G/DL (32-36); MEAN CORPUSCULAR VOLUME 65 FL (80-99); MEAN PLATELET VOLUME 9.9 FL (7.4-10.4); MONOCYTES # (AUTO) 1.1 X 10^3 (0.0-1.0); MONOCYTES % (AUTO) 13 % (0-12); NEUTROPHILS # (AUTO) 6.7 X 10^3 (1.8-7.8); NEUTROPHILS % (AUTO) 76 % (42-75); PLATELET COUNT 341 10^3/uL (130-400); RED BLOOD COUNT 4.93 10^6/uL (4.35-5.85); RED CELL DISTRIBUTION WIDTH 24.1 % (10.0-14.5); WHITE BLOOD COUNT 8.8 10^3/uL (4.3-11.0)
[2016-05-02 06:01] LABS: ALANINE AMINOTRANSFERASE 20 U/L (0-55); ALBUMIN 3.4 G/DL (3.2-4.5); ANION GAP 8 MMOL/L (5-14); ASPARTATE AMINO TRANSFERASE 15 U/L (5-34); BILIRUBIN,TOTAL 0.5 MG/DL (0.1-1.0); BLOOD UREA NITROGEN 27 MG/DL (7-18); BUN/CREATININE RATIO 29; CALCIUM 8.6 MG/DL (8.5-10.1); CARBON DIOXIDE 17 MMOL/L (21-32); CHLORIDE 99 MMOL/L (98-107); CREATININE SERUM 0.92 MG/DL (0.60-1.30); GFR ESTIMATED > 60; GLUCOSE 121 MG/DL (70-105); MAGNESIUM 1.8 MG/DL (1.8-2.4); POTASSIUM 5.1 MMOL/L (3.6-5.0); TOTAL PROTEIN 6.5 G/DL (6.4-8.2)
[2016-05-02 06:04] LABS: SODIUM 124 MMOL/L (135-145)
[2016-05-02 08:00] VITALS: BP 137/74
[2016-05-02] MEDS: VITAMIN D3 1,000 UNITS (CHOLECALCIFEROL) TABLET PO SCH (08:05)
[2016-05-02] MEDS: FAMOTIDINE 20 MG (PEPCID) TABLET PO SCH (08:05)
--- NOTE | 2016-05-02 11:28 | Discharge Inst-Simple/Standard ---
Discharge Inst-Standard Discharge Medications New, Converted or Re-Newed RX: Other Patient Instructions/Follow Up Plan of Care/Instructions/FU: F/u at cancer center on 05/03/2016 for labwork as scheduled. Low potassium diet. Activity as Tolerated: Yes Discharge Diet: Other Diet NITO BERNAL May 02, 2016 11:28
--- OUTSIDE RECORDS SUMMARY | 2016-05-06 14:23 | XMS REPORT | Continuity of Care Document ---
Author Author [facility] Organization [facility] [address] Address Unknown Phone Unavailable Support Name Relationship Address Phone VIELKA MENDOZA MD Caregiver #1 [facility] [place] [address] Insurance Providers Payer Name Policy Number Subscriber Name Relationship [employer] [id number] Jeni Campoverde 19 Self / Same As Patient Advance Directives Directive Response Recorded Date/Time Advance Directives No 03/31/16 11:06am Health Care Power of Certified Rehabilitation Counselor No 03/31/16 11:06am Organ Donor No 03/31/16 [...] - 99.5) 03/29/2016 5:18pm Temperature (Calculated Celsius) 36.75106 degrees C (36.4 - 37.5) 03/29/2016 4:00pm [...] 9.00 inches 03/31/2016 11:05am Height (Calculated Centimeters) 175.232745 cm 03/31/2016 11:05am Weight (Pounds) 236 pounds 03/31/2016 11:05am Weight (Ounces) 0.0 oz 03/31/2016 11:05am Weight (Calculated Grams) 933208.80 gm 03/31/2016 11:05am Weight (Calculated Kilograms) 107.220989 kilograms 03/31/2016 11:05am Calculated BMI 34.9 03/31/2016 11:05am Results Pending Laboratory Results Test Name Collection Date/Time Procedures Procedure Status Date Provider(s) Tracing only of electrocardiogram Completed 03/27/16 VIELKA MENDOZA MD Encounters Encounter Location Arrival/Admit Date Discharge/Depart Date Attending Provider Departed Clinic [facility] [address] 03/31/16 10:00am 03/31/16 11: 15am VIELKA MENDOZA MD Discharged Inpatient [facility] [address] 03/26/16 11:56pm 6:05pm VIELKA MENDOZA MD Departed Clinic [facility] [address] 03/22/16 1:18pm 03/22/16 3: 00pm AREN ANTHONY DO
--- NOTE | 2016-05-17 19:31 | Discharge Summary ---
Diagnosis/Chief Complaint Date of Admission Apr 30, 2016 at 13:51 Date of Discharge May 02, 2016 at 13:30 Discharge Date: Admission Diagnosis Admission Diagnosis Hyperkalemia-glucose and insulin given and Kayexalate every 6 hours is being administered; potassium has improved from 6.7-6.1. Hyponatremia-careful IV rehydration with normal saline, especially in view of Kayexalate causing diarrhea. Abnormal EKG--chronic left bundle branch block with T waves more prominent on current study than on prior a. Consultation from cardiology has been obtained and reviewed and Dr. Nassar' s assistance is appreciated. Metastatic colon cancer with metastases to liver, abdominal lymph nodes, peritoneum, possibly lung; patient has had stable lung nodule and PET scans has been ordered to further evaluate. 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 Hyponatremia-careful IV rehydration with normal saline, also improved at time of discharge. Abnormal EKG--chronic left bundle branch block with T waves more prominent on current study than on prior a. Consultation from cardiology has been obtained and reviewed and Dr. Nassar' s assistance is appreciated. Metastatic colon cancer with metastases to liver, abdominal lymph nodes, peritoneum, possibly lung; patient has had stable lung nodule and PET scans has been ordered to further evaluate. 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 His labs however showed that he had a potassium of 6.7 and patient reported being very fatigued. He had to stop between walking from the lobby to the examination room because of weakness and fatigue. No report of chest pain. He has chronic dyspnea on exertion. Sodium was also noted to be low at 118. Both the hyperkalemia and worsening of his hyponatremia are acute findings. Discharge Summary Discharge Physical Examination Allergies: Coded Allergies: No Known Drug Allergies (Unverified , 04/28/16) General Appearance: Alert, Oriented X3, Cooperative HEENT: Atraumatic, PERRLA Respiratory: Clear to Auscultation, Normal Air Movement Cardiovascular: Regular Rate, Normal S1, Normal S2, No Murmurs Abdominal: Normal Bowel Sounds, Soft, No Tenderness, No Hepatosplenomegaly, No Masses, Other (colostomy bag) Extremities: No Clubbing, No Cyanosis, No Edema, Normal Pulses, No Tenderness/ Swelling Skin: No Rashes, No Breakdown, No Significant Lesion Neuro: Normal Gait, Normal Speech, Strength at 5/5 X4 Ext, Normal Tone, Sensation Intact Psych/Mental Status: Mental Status NL, Mood NL Hospital Course Patient recieved initial management with glucose and insulin, then given Kayexalate every 6 hours until potassium improved and was stable for discharge. For his hyponatremia, he received IV normal saline and clinically felt better with improvement of the sodium and potassium level toward normal. He was stable for discharge on 05/02/16 and was instructed to follow up in the cancer clinic on 05/03/16 to have his Na and K levels rechecked. Discharge Instructions to patient/family Please see electonic discharge instructions given to patient. Discharge Medications Reviewed and agree with Discharge Medication list on patient's Discharge Instruction sheet Clinical Quality Measures DVT/VTE Risk/Contraindication: Risk Factor Score Per Nursin RFS Level Per Nursing on Admit: 4+=Very High MEG MOISE MD May 17, 2016 19:31
== END 2016-05-02 13:30 | disposition home or self-care (01) | DRG 641 ==
LOC: 4TH 13:45 → UNDOADMOB 13:45 → INTOOBSV 13:45 → 4TH 13:45 → OBSVTOIN 04-30 13:51 → UNDODISOB 05-02 13:30
PROVIDERS: ADMIT Internal Medicine Hematology & Oncology; ATTEND Internal Medicine Hematology & Oncology
DX: E87.5 Hyperkalemia (principal); E87.1 Hypo-osmolality and hyponatremia; I44.7 Left bundle-branch block, unspecified; C78.7 Secondary malignant neoplasm of liver and intrahepatic bile duct; C77.2 Secondary and unspecified malignant neoplasm of intra-abdominal lymph nodes; C78.6 Secondary malignant neoplasm of retroperitoneum and peritoneum; Z85.038 Personal history of other malignant neoplasm of large intestine; D50.9 Iron deficiency anemia, unspecified; I12.9 Hypertensive chronic kidney disease with stage 1 through stage 4 chronic kidney disease, or unspecified chronic kidney disease; N18.9 Chronic kidney disease, unspecified; E11.9 Type 2 diabetes mellitus without complications; E66.9 Obesity, unspecified; Z68.31 Body mass index [BMI] 31.0-31.9, adult; Z82.49 Family history of ischemic heart disease and other diseases of the circulatory system
CPT/HCPCS: 36415; 80048; 80053; 83735; 84132; 85025; 93005; 99211; G0378

== ENCOUNTER → 2016-05-04 | Outpatient (CLI) | payer OTHER, MEDICARE ==
[~2016-05-04] MED LIST changes: +FAMO20TA3 PO; +METO5TAB75 PO; +ONDA8TAB12 PO; +PANT40TA3; +ZOLP5TAB PO
--- OUTSIDE RECORDS SUMMARY | 2016-05-04 10:36 | XMS REPORT | Continuity of Care Document ---
Author Author [facility] Organization [facility] Address Unknown Phone Unavailable Support Name Relationship Address Phone VIELKA MENDOZA MD Caregiver [address] [place] [address] Insurance Providers Payer Name Policy Number Subscriber Name Relationship [employer] [id number] Jeni Campoverde 19 Self / Same As Patient Advance Directives Directive Response Recorded Date/Time Advance Directives No 03/31/16 11:06am Health Care Power of Senior Linux Systems Administrator No 03/31/16 11:06am Organ Donor No 03/31/16 [...] - 99.5) 03/29/2016 5:18pm Temperature (Calculated Celsius) 36.06208 degrees C (36.4 - 37.5) 03/29/2016 4:00pm [...] 9.00 inches 03/31/2016 11:05am Height (Calculated Centimeters) 175.634536 cm 03/31/2016 11:05am Weight (Pounds) 236 pounds 03/31/2016 11:05am Weight (Ounces) 0.0 oz 03/31/2016 11:05am Weight (Calculated Grams) 427900.80 gm 03/31/2016 11:05am Weight (Calculated Kilograms) 107.348151 kilograms 03/31/2016 11:05am Calculated BMI 34.9 03/31/2016 11:05am Results Pending Laboratory Results Test Name Collection Date/Time Procedures Procedure Status Date Provider(s) Tracing only of electrocardiogram Completed 03/27/16 VIELKA MENDOZA MD Encounters Encounter Location Arrival/Admit Date Discharge/Depart Date Attending Provider Departed Clinic [facility] 03/31/16 10:00am 03/31/16 11: 15am VIELKA MENDOZA MD Discharged Inpatient [facility] 03/26/16 11:56pm 6:05pm VIELKA MENDOZA MD Departed Clinic [facility] 03/22/16 1:18pm 03/22/16 3: 00pm AREN ANTHONY DO
--- NOTE | 2016-05-04 14:24 | Diagnostic Imaging Report ---
EXAMINATION: PET-CT TECHNIQUE: Serum glucose level at the time of the study is: 156 mg/dL. 13.9 mCi of FDG was administered intravenously followed by obtaining PET images with corresponding noncontrast CT scan images. The CT scan was performed for anatomic correlation and attenuation correction and was not performed according to the diagnostic protocol of the areas covered. The scan was performed from the head to mid thighs. INDICATION: Colon cancer. FINDINGS: There is symmetric activity seen in the visualized portions of the brain. No hypermetabolic mass is identified in the neck. In the chest, there is a hypermetabolic significantly enlarged right paratracheal lymph node with maximum SUV of 7. This is associated with calcification and measures 3.3 cm in size. There are multiple other smaller mediastinal and bilateral hilar hypermetabolic nodules seen as well as a right middle lobe and inferior lingula masses with increased FDG uptake in the range of 4-6 SUV level compatible with metastasis. The lung windows on the associated CT demonstrate diffuse innumerable small nodules not appreciated on PET metabolic evaluation due to their small size and are highly suspicious for metastasis. The liver demonstrates multiple hypermetabolic lesions compatible with metastasis, the largest appears to be in the left hepatic lobe not well delineated on the unenhanced localizer CT, but roughly measures up to 3.2 cm in size. There are hypermetabolic para-aortic and preaortic lymph nodes suggestive of metastasis and hypermetabolic omental caking. There is a moderately hypermetabolic mass in the cecum with maximum SUV of 7. IMPRESSION: There is a mass in the cecum associated with retroperitoneal lymphadenopathy, multiple liver masses, mediastinal and hilar lymphadenopathy, innumerable diffuse lung subcentimeter nodules in addition to right middle lobe and lingular dominant lung masses compatible with metastasis. There is probably obstruction to the bronchus to the lingula also causing consolidation/atelectasis presumably secondary to central lung or bronchial metastasis. Dictated by: Dictated on workstation # [id number]
== END ==
LOC: RAD 10:32
PROVIDERS: ATTEND Internal Medicine Hematology & Oncology
DX: C18.2 Malignant neoplasm of ascending colon (principal); C78.7 Secondary malignant neoplasm of liver and intrahepatic bile duct; R18.0 Malignant ascites; R59.0 Localized enlarged lymph nodes

== ENCOUNTER 2016-05-19 01:56 | Inpatient (IN) | payer OTHER, MEDICARE ==
[2016-05-19] VITALS (8 sets, daily range): BP systolic 94–121; BP diastolic 50–67
[~2016-05-19] VITALS: Ht 172.7 cm; Wt 94.6 kg
[~2016-05-19 01:56] MED LIST changes: -METO5TAB75 PO; -PANT40TA3; -ZOLP5TAB PO
--- OUTSIDE RECORDS SUMMARY | 2016-05-19 02:01 | XMS REPORT | Continuity of Care Document ---
Author Author [facility] Organization [facility] Address Unknown Phone Unavailable Support Name Relationship Address Phone VIELKA MENDOZA MD Caregiver #1 [facility] [place] [address] [address] Insurance Providers Payer Name Policy Number Subscriber Name Relationship [employer] [id number] Jeni Campoverde 19 Self / Same As Patient Advance Directives Directive Response Recorded Date/Time Advance Directives No 03/31/16 11:06am Health Care Power of Casing Wringer Operator No 03/31/16 11:06am Organ Donor No [...] - 99.5) 03/29/2016 5:18pm Temperature (Calculated Celsius) 36.01914 degrees C (36.4 - 37.5) 03/29/2016 4:00pm [...] 9.00 inches 03/31/2016 11:05am Height (Calculated Centimeters) 175.448718 cm 03/31/2016 11:05am Weight (Pounds) 236 pounds 03/31/2016 11:05am Weight (Ounces) 0.0 oz 03/31/2016 11:05am Weight (Calculated Grams) 599778.80 gm 03/31/2016 11:05am Weight (Calculated Kilograms) 107.412997 kilograms 03/31/2016 11:05am Calculated BMI 34.9 03/31/2016 11:05am Results Pending Laboratory Results Test Name Collection Date/Time Procedures Procedure Status Date Provider(s) Tracing only of electrocardiogram Completed 03/27/16 VIELKA MENDOZA MD Encounters Encounter Location Arrival/Admit Date Discharge/Depart Date Attending Provider Departed Clinic [facility] 03/31/16 10:00am 03/31/16 11: 15am VIELKA MENDOZA MD Discharged Inpatient [facility] 03/26/16 11:56pm 6:05pm VIELKA MENDOZA MD Departed Clinic [facility] 03/22/16 1:18pm 03/22/16 3: 00pm AREN ANTHONY DO
[2016-05-19] MEDS ORDERED: NS IV 1000 ML 1,000 ML IV ONE (02:06)
[2016-05-19] MEDS ORDERED: PANT40TA3 (02:08)
[2016-05-19] MEDS ORDERED: ONDANSETRON 4 MG/2 ML (SDV) Z0FRAN IVP ONE (02:15)
[2016-05-19] MEDS ORDERED: METO5TAB75 PO ×2 (02:20→09:39)
[2016-05-19] MEDS ORDERED: ZOLP5TAB PO (02:20)
[2016-05-19 02:25] LABS: BASOPHILS % (AUTO) 0 % (0-10); EOSINOPHILS % (AUTO) 0 % (0-10); LYMPHOCYTES # (AUTO) 0.2 X 10^3 (1.0-4.0); LYMPHOCYTES % (AUTO) 2 % (12-44); MEAN CORPUSCULAR HEMOGLOBIN 23 PG (25-34); MEAN CORPUSCULAR HGB CONC 34 G/DL (32-36); MEAN CORPUSCULAR VOLUME 67 FL (80-99); MEAN PLATELET VOLUME 10.6 FL (7.4-10.4); MONOCYTES # (AUTO) 0.6 X 10^3 (0.0-1.0); MONOCYTES % (AUTO) 6 % (0-12); NEUTROPHILS # (AUTO) 8.9 X 10^3 (1.8-7.8); NEUTROPHILS % (AUTO) 92 % (42-75); PLATELET COUNT 352 10^3/uL (130-400); RED BLOOD COUNT 5.65 10^6/uL (4.35-5.85); RED CELL DISTRIBUTION WIDTH 29.2 % (10.0-14.5); WHITE BLOOD COUNT 9.7 10^3/uL (4.3-11.0)
[2016-05-19] MEDS ORDERED: ACETAMINOPHEN 500 MG TAB (TYLENOL) PO ONE (02:30)
[2016-05-19 02:35] LABS: INR 1.2 (0.8-1.4); PROTHROMBIN TIME PATIENT 14.5 SEC (12.2-14.7)
[2016-05-19 02:46] LABS: ALANINE AMINOTRANSFERASE 19 U/L (0-55); ALBUMIN 3.4 G/DL (3.2-4.5); AMYLASE 48 U/L (25-125); ANION GAP 13 MMOL/L (5-14); ASPARTATE AMINO TRANSFERASE 13 U/L (5-34); BILIRUBIN,TOTAL 0.4 MG/DL (0.1-1.0); BLOOD UREA NITROGEN 34 MG/DL (7-18); BUN/CREATININE RATIO 19; CALCIUM 9.4 MG/DL (8.5-10.1); CARBON DIOXIDE 14 MMOL/L (21-32); CHLORIDE 97 MMOL/L (98-107); CREATININE SERUM 1.78 MG/DL (0.60-1.30); GFR ESTIMATED 38; GLUCOSE 270 MG/DL (70-105); LIPASE 58 U/L (8-78); POTASSIUM 5.7 MMOL/L (3.6-5.0); TOTAL PROTEIN 6.6 G/DL (6.4-8.2)
[2016-05-19 02:47] LABS: SODIUM 124 MMOL/L (135-145)
[2016-05-19 02:51] LABS: TROPONIN I < 0.30 NG/ML (<0.30)
[2016-05-19 03:44] LABS: BILIRUBIN,URINE NEGATIVE (NEGATIVE); KETONES,URINE NEGATIVE (NEGATIVE); LEUKOCYTE ESTERASE ,URINE 1+ (NEGATIVE); NITRITE,URINE NEGATIVE (NEGATIVE); PH,URINE 5 (5-9); PROTEIN,URINE 2+ (NEGATIVE); UROBILINOGEN,URINE NORMAL (NORMAL)
[2016-05-19 03:51] LABS: SQUAMOUS EPITHELIAL CELL,UR 0-2 /HPF
[2016-05-19] MEDS ORDERED: CEFEPIME INJECTION 2,000 MG in NORMAL SALINE (BAXTER MINI) 50 ML IV ONE (04:00)
[2016-05-19] MEDS ORDERED: D5 NS 1000 ML IV SOLUTION 1,000 ML IV ONE (04:47)
--- NOTE | 2016-05-19 05:21 | ED General ---
General Chief Complaint: Trauma-Non Activation Stated Complaint: SYNCOPAL EPISODE;FEVER OF UNDETERMINED ETIOLOGY Nursing Triage Note: patient reports passing out and falling. c/o R leg pain, denies other injury Nursing Sepsis Screen: Possible Sepsis Risk Source of Information: Patient, EMS History of Present Illness Time Seen by Provider: 02:04 Initial Comments PT ARRIVES VIA EMS FROM HOME PT STATS THAT HE WAS GOING TO THE BATHROOM AND PASSED OUT--WAS CAUGHT/ASSISTED TO FLOOR BY FAMILY STATES IT FEELS LIKE HE PULLED HIS RIGHT GROIN FROM THE FALL, OTHERWISE NO TRAUMA FROM THE EPISODE OCCURRED AT 0100 PT HAS METASTATIC COLON CANCER AND STARTED SECOND ROUND OF CHEMO TODAY--HAS CONTINUOUS INFUSION VIA PORT IN RIGHT CHEST HAS HAD NAUSEA AND VOMITING TODAY--APPROXIMATELY 5 EPISODES OF VOMITING. STATES HE HAD THE SAME WITH THE FIRST ROUND OF CHEMO NO DIARRHEA NO ABDOMINAL PAIN NO KNOWN FEVER NO URINARY SYMPTOMS C/O FEELING DEHYDRATED, MOUTH IS EXTREMELY DRY NO CHEST PAIN OR PALPITATIONS NO SHORTNESS OF BREATH OR COUGH NO HEADACHE NO VISION CHANGES NO DIZZINESS JUST FEELS VERY WEAK ALL OVER. PCP: DR. NÚÑEZ ONCOLOGY: DR. MOISE Allergies and Home Medications Allergies Coded Allergies: No Known Drug Allergies (Unverified , 04/28/16) Home Medications Cholecalciferol (Vitamin D3) 2,000 Unit Tablet 2,000 UNIT PO DAILY (Reported) Famotidine 20 Mg Tablet 20 MG PO BID (Reported) Hydrocodone/Acetaminophen 1 Each Tablet 1-2 TAB PO EVERY 4-6 HOURS PRN PRN PAIN (Reported) Metoclopramide HCl 5 Mg Tablet 5 MG PO (Reported) Ondansetron HCl 8 Mg Tablet 8 MG PO Q8H PRN PRN NAUSEA/VOMITING (Reported) Pantoprazole Sodium 40 Mg Tablet. #30 (Reported) Zolpidem Tartrate 5 Mg Tablet 5 MG PO (Reported) Constitutional: see HPI malaise weakness EENTM: no symptoms reported Respiratory: no symptoms reportedNo cough, No dyspnea on exertion, No short of breath, No wheezing Cardiovascular: see HPINo chest pain, No edema, No palpitations, syncope vascular heart diseas Gastrointestinal: see HPINo abdominal pain, loss of appetite nausea vomiting Genitourinary: no symptoms reported Musculoskeletal: see HPI Skin: no symptoms reported Psychiatric/Neurological: See HPIDenies Headache, Denies Numbness, Denies Paresthesia, Denies Seizure, Denies Tingling, Denies Tremors, Weakness ( GENERALIZED) Hematologic/Lymphatic: No Symptoms Reported Immunological/Allergic: see HPI Past Slwzjfl-Wwocey-Ojyiwm Hx Patient Social History Alcohol Use: Denies Use Recreational Drug Use: No Smoking Status: Never a Smoker Recent Foreign Travel: No Contact w/Someone Who Travel: No Recent Infectious Disease Expo: No Recent Hopitalizations: No Immunizations Up To Date Tetanus Booster (TDap): Unknown Seasonal Allergies Seasonal Allergies: No Surgeries HX Surgeries: Yes (PILONIDAL CYST; COLON RESECTION WITH ILEOSTOMY) Surgeries: Abdominal, Appendectomy Respiratory Hx Respiratory Disorders: Yes (MEDIASTINAL LYMPHADENOPATHY) Cardiovascular Hx Cardiac Disorders: Yes Cardiac Disorders: Hypertension Neurological Hx Neurological Disorders: No Reproductive System Hx Reproductive Disorders: No Sexually Transmitted Disease: No HIV/AIDS: No Genitourinary Hx Genitourinary Disorders: No Gastrointestinal Hx Gastrointestinal Disorders: Yes (METASTATIC COLON CANCER) Gastrointestinal Disorders: Gastroesophageal Reflux, Obstructive Bowel Musculoskeletal Hx Musculoskeletal Disorders: No Endocrine Hx Endocrine Disorders: Yes Endocrine Disorders: Diabetes, Non-Insulin dep HEENT HX ENT Disorders: Yes (GLASSES) Loss of Vision: Bilateral Hearing Impairment: Denies 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) Cancer: Colon Psychosocial Hx Psychiatric Problems: No Integumentary HX Skin/Integumentary Disorder: No Blood Transfusions Hx Blood Disorders: Yes (ANEMIA) Adverse Reaction to a Blood Tr: No (RECENT TRANSFUSION WITHOUT PROBLEMS) Family Medical History Significant Family History: CAD Under 55 Years Old Family Medial History: Hypertension 19 FATHER Myocardial infarction 19 FATHER Physical Exam Vital Signs Vital Sign - Last 12Hours 05/19/16 02:04 Temp 101.5 Pulse 129 Resp 32 B/P 145/78 Pulse Ox 96 O2 Delivery Room Air Capillary Refill : Less Than 3 Seconds General Appearance: No Apparent Distress WD/WN Other (MILDLY LETHARGIC ) HEENT: PERRL/EOMI Other (ORAL MUCOSA VERY DRY) Neck: Full Range of Motion Normal Inspection Non Tender Supple Respiratory: No Accessory Muscle Use No Respiratory Distress Decreased Breath Sounds (IN BASES--LEFT > RIGHT) Cardiovascular: No JVD No Murmur Tachycardia Gastrointestinal: Normal Bowel Sounds No Pulsatile Mass Non Tender Distended ( AND FIRM) Other (ILEOSTOMY IN RLQ) Back: No CVA Tenderness Extremity: Normal Capillary Refill Normal Inspection Normal Range of Motion No Calf Tenderness No Pedal Edema Other (MILD TENDERNESS TO MEDIAL ASPECT OF RIGHT THIGH) Neurologic/Psychiatric: Alert Oriented x3 No Motor/Sensory Deficits immunologist II- XII Norm as Tested Other (LETHARGIC) Skin: Normal Color Warm/Dry Progress/Results/Core Measures Results/Orders Lab Results Laboratory Tests Test 05/19/16 02:17 05/19/16 03:36 05/19/16 04:27 Range/Units Activated Partial Thromboplast Time 27 24-35 SEC Alanine Aminotransferase (ALT/SGPT) 19 0-55 U/L Albumin 3.4 3.2-4.5 G/DL Alkaline Phosphatase 133 40-136 U/L Amylase Level 48 25-125 U/L Anion Gap 13 5-14 MMOL/L Aspartate Amino Transf (AST/SGOT) 13 5-34 U/L BUN/Creatinine Ratio 19 Basophils # (Auto) 0.0 0.0-0.1 10^3/uL Basophils (%) (Auto) 0 0-10 % Blood Urea Nitrogen 34 H 7-18 MG/DL Calcium Level 9.4 8.5-10.1 MG/DL Carbon Dioxide Level 14 L 21-32 MMOL/L Chloride Level 97 L 98-107 MMOL/L Creatinine 1.78 H 0.60-1.30 MG/DL Eosinophils # (Auto) 0.0 0.0-0.3 10^3/uL Eosinophils (%) (Auto) 0 0-10 % Estimat Glomerular Filtration Rate 38 Glucose Level 270 H 70-105 MG/DL Hematocrit 38 L 40-54 % Hemoglobin 12.8 L 13.3-17.7 G/DL INR Comment 1.2 0.8-1.4 Lactic Acid Level 3.2 *H 2.4 *H 0.5-2.0 MMOL/L Lipase 58 8-78 U/L Lymphocytes # (Auto) 0.2 L 1.0-4.0 X 10^3 Lymphocytes (%) (Auto) 2 L 12-44 % Mean Corpuscular Hemoglobin 23 L 25-34 PG Mean Corpuscular Hemoglobin Concent 34 32-36 G/DL Mean Corpuscular Volume 67 L 80-99 FL Mean Platelet Volume 10.6 H 7.4-10.4 FL Monocytes # (Auto) 0.6 0.0-1.0 X 10^3 Monocytes (%) (Auto) 6 0-12 % Neutrophils # (Auto) 8.9 H 1.8-7.8 X 10^3 Neutrophils (%) (Auto) 92 H 42-75 % Platelet Count 352 130-400 10^3/uL Potassium Level 5.7 H 3.6-5.0 MMOL/L Prothrombin Time 14.5 12.2-14.7 SEC Red Blood Count 5.65 4.35-5.85 10^6/uL Red Cell Distribution Width 29.2 H 10.0-14.5 % Sodium Level 124 *L 135-145 MMOL/L Total Bilirubin 0.4 0.1-1.0 MG/DL Total Protein 6.6 6.4-8.2 G/DL Troponin I < 0.30 <0.30 NG/ML White Blood Count 9.7 4.3-11.0 10^3/uL Urine Bacteria LARGE H /HPF Urine Bilirubin NEGATIVE NEGATIVE Urine Casts PRESENT /LPF Urine Clarity SLIGHTLY CLOUDY Urine Color YELLOW Urine Crystals NONE /LPF Urine Culture Indicated YES Urine Glucose (UA) 2+ H NEGATIVE Urine Granular Casts 2-5 H /LPF Urine Hyaline Casts 5-10 H /LPF Urine Ketones NEGATIVE NEGATIVE Urine Leukocyte Esterase 1+ H NEGATIVE Urine Mucus SMALL H /LPF Urine Nitrite NEGATIVE NEGATIVE Urine Protein 2+ H NEGATIVE Urine RBC NONE /HPF Urine RBC (Auto) NEGATIVE NEGATIVE Urine Specific [place] 1.025 H 1.016-1.022 Urine Squamous Epithelial Cells 0-2 /HPF Urine Urobilinogen NORMAL NORMAL MG/DL Urine WBC 2-5 /HPF Urine pH 5 5-9 My Orders Orders-NAHOMY,ZAKIYA K DO Saline Lock/Iv-Start (05/19/16 02:06) Ekg Tracing (05/19/16 02:06) O2 (05/19/16 02:06) Monitor-Rhythm Ecg Trace Only (05/19/16 02:06) Ct Head Wo (05/19/16 02:06) Amylase (05/19/16 02:06) Cbc With Automated Diff (05/19/16 02:06) Comprehensive Metabolic Panel (05/19/16 02:06) Lactic Acid Analyzer (05/19/16 02:06) Lipase (05/19/16 02:06) Protime With Inr (05/19/16 02:06) Partial Thromboplastin Time (05/19/16 02:06) Troponin I (05/19/16 02:06) Ua Culture If Indicated (05/19/16 02:06) Blood Culture (05/19/16 02:06) Chest 1 View, Ap/Pa Only (05/19/16 02:06) Pelvis (05/19/16 02:06) Saline Lock/Iv-Start (05/19/16 02:06) Ns Iv 1000 Ml (Sodium Chloride 0.9%) (05/19/16 02:06) Ondansetron Injection (Zofran Injectio (05/19/16 02:15) Femur, Right, 2 Views (05/19/16 02:12) Acetaminophen Tablet (Tylenol Tablet) (05/19/16 02:30) Cefepime Injection (Maxipime Injection) (05/19/16 04:00) Urine Culture (05/19/16 03:36) Medications Given in ED Current Medications Medications Dose Ordered Sig/Nehal Route Start Time Stop Time Status Last Admin Dose Admin Acetaminophen 1,000 mg ONCE ONCE PO 05/19/16 02:30 05/19/16 02:31 DC 05/19/16 02:24 1,000 MG Ondansetron HCl 4 mg ONCE ONCE IVP 05/19/16 02:15 05/19/16 02:16 DC 05/19/16 02:24 4 MG Sodium Chloride 1,000 ml @ 0 mls/hr Q0M ONCE IV 05/19/16 02:06 05/19/16 02:09 DC 05/19/16 02:24 0 MLS/HR Vital Signs/I&O Vital Sign - Last 12Hours 05/19/16 05/19/16 05/19/16 02:04 03:44 04:21 Temp 101.5 99.9 99.9 Pulse 129 116 110 Resp 32 13 16 B/P 145/78 103/67 Pulse Ox 96 96 95 O2 Delivery Room Air Room Air Blood Pressure Mean: 79 Progress Note : Progress Note PT LOOKS AND FEELS MUCH BETTER AFTER IV FLUIDS AND REDUCTION OF FEVER. PT VERY TALKATIVE. ORAL MUCOSA IS MOIST PT DRINKING WATER WITHOUT DIFFICULTY--NAUSEA IS GONE, AND NO VOMITING IN ER ECG Initial ECG Impression Time: 02:12 Initial ECG Rate: 125 Initial ECG Rhythm: S.Tach (LBBB) Initial ECG Comparisson: Unchanged Diagnostic Imaging Comments CXR--BILATERAL INFILTRATES LEFT / RIGHT , NO SIGNIFICANT CHANGE FROM PREVIOUS XRAYS RIGHT FEMUR AND PELVIS--NO ACUTE PROCESS PENDING RADIOLOGIST REVIEWS CT HEAD--NO ACUTE PROCESS, PER [facility] VIA FAX @ 0137 Reviewed: Reviewed by Me Departure Communication Progress Notes 0340--SPOKE WITH DR. MOISE, ACCEPTS PT FOR ADMIT. ORDERS NOTED. Impression Impression: Primary Impression: SYNCOPAL EPISODE Additional Impressions: Sepsis POSSIBLE PNEUMONIA UTI (urinary tract infection) METASTATIC COLON CANCER NAUSEA AND VOMITING --SUSPECTED TO BE FROM CHEMOTHERAPY CURRENTLY UNDER GOING CHEMOTHERAPY Dehydration Hyponatremia Hyperkalemia Acute on chronic renal insufficiency Disposition: ADMITTED INPATIENT Condition: Improved Decision to Admit Reason: Admit from ER (General) Decision to Admit/Date: May 19, 2016 Time/Decision to Admit Time: 03:40 Departure-Patient Inst. Referrals: YOGI NÚÑEZ DO (PCP) Primary Care Physician ZAKIYA COREA DO May 19, 2016 05:21
[2016-05-19] MEDS ORDERED: LEVOFLOXACIN 750 MG/150 ML D5W (PRE-MIX) IV SCH (05:45)
[2016-05-19] MEDS ORDERED: VANCOMYCIN 1 GM/NS 250 ML IVPB IV SCH ×2 (05:45)
[2016-05-19] MEDS ORDERED: ONDANSETRON 4 MG/2 ML (SDV) Z0FRAN IV PRN (05:45)
[2016-05-19] MEDS: D5 NS 1000 ML IV SOLUTION 1,000 ML IV SCH ×3 (06:32→19:05)
[2016-05-19] MEDS: inSUlin (REGULAR) HUMAN 1 UNIT/0.01 ML (CHARGE PER UNIT) SC SCH ×4 (06:44→20:43)
--- NOTE | 2016-05-19 07:04 | Diagnostic Imaging Report ---
PROCEDURE: CT head without contrast. TECHNIQUE: Multiple contiguous axial images were obtained through the brain without the use of intravenous contrast. INDICATION: History of colon CA. FINDINGS: The ventricles and cortical gyral pattern appear normal. There is no mass effect. No intracranial hemorrhage. No extra-axial fluid collections. Basal cisterns are clear. Mastoid air cells and paranasal sinuses are well-aerated. No destructive calvarial bony lesions. IMPRESSION: Negative CT head without contrast. These findings are in agreement with the preliminary report. Dictated by: Dictated on workstation # [id number]
--- NOTE | 2016-05-19 07:06 | Diagnostic Imaging Report ---
INDICATION: History of metastatic colon CA. COMPARISON: 04/06/2016. FINDINGS: Masslike infiltrate noted in the left lower lung which was present previously. This appears more masslike today. Mass noted in right upper lung unchanged. Diffuse prominence of the interstitial markings noted bilaterally which could be secondary to lymphangitic spread. No consolidated infiltrates have occurred. Heart is not enlarged. No evidence of pneumothorax or pleural effusion. Right Port-A-Cath present overlies the superior vena cava shadow. No bony lesions demonstrated. IMPRESSION: Finding consistent with bilateral pulmonary metastasis with increasing interstitial markings and reticular nodular pattern raising question of lymphangitic spread. Dictated by: Dictated on workstation # [id number]
--- NOTE | 2016-05-19 07:07 | Diagnostic Imaging Report ---
INDICATION: History of colon CA. AP pelvis shows no destructive bony lesions. SI joints are symmetrical. Pubic symphysis is in good alignment. Femoral heads are in normal articulation. Bowel gas pattern appears normal. No pathologic calcifications. IMPRESSION: Negative AP pelvis. Dictated by: Dictated on workstation # [id number]
--- NOTE | 2016-05-19 07:28 | Diagnostic Imaging Report ---
INDICATION: Right femur pain. History of metastatic colon CA. FINDINGS: Femoral head is in normal articulation with the acetabulum. Joint spaces well preserved. Articulating surfaces are smooth. There are no fractures. No destructive bony lesions demonstrated. IMPRESSION: Negative right femur. Dictated by: Dictated on workstation # [id number]
[2016-05-19] MEDS ORDERED: FLU TRIvalent (5 YOA+) 2016-17 (AFLURIA) 0.5 ML IM ONE (07:45)
[2016-05-19] MEDS ORDERED: VANCOMYCIN 2000 MG/NS 500 ML IVPB IV NR ×2 (08:00)
--- NOTE | 2016-05-19 11:57 | History & Physicial ---
History of Present Illness History of Present Illness Reason for visit/HPI Jhonatan Walton is a 70-year-old male with known history of metastatic colon cancer with extensive liver metastases and metastases to peritoneum lung and mediastinal lymph nodes who was due for his second cycle of FOLFOX on . Patient was recently hospitalized recently with symptomatic hyponatremia and hyperkalemia which improved with medical management. At the time of the clinic visit he felt well stating he had regained his appetite and denied having complaints of diarrhea, mouth sores, increased shortness of breath, cough , and denied having fever chills or night sweats. At about 11 p.m. patient began to have chills associated with profound weakness. He was brought in to the hospital by his family who called EMS when patient felt so weak that he fell to the floor. In the emergency room temp was found to be elevated to 102. Lactic acid was also found elevated and chest x-ray showed bilateral infiltrates vs lymphangitic spread. In the emergency room he was started on vancomycin, levofloxacin and cefepime. He feels much better today and fever has currently resolved. Past medical history is significant for: 1. Metastatic adenocarcinoma of colon with metastases to the liver, lung, mediastinal and abdominal lymph nodes and extensive peritoneal metastases. 2. 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 3. Iron deficiency anemia-administer injected for 750 mg 2 doses since patient has malabsorption/ intolerance of oral iron. 4. Hyponatremia 5. Hyperkalemia has resolved 6. Comorbidities of Type II diabetes, Obesity, and Hypertension. Date of Admission May 19, 2016 at 03:40 I consulted on this patient on 05/19/16 11:55 Attending Physician Meg Moise MD Admitting Physician Lee Mariano DO Consult Allergies and Home Medications Allergies Coded Allergies: No Known Drug Allergies (Unverified , 04/28/16) Home Medications Cholecalciferol (Vitamin D3) 2,000 Unit Tablet 2,000 UNIT PO DAILY (Reported) Famotidine 20 Mg Tablet 20 MG PO BID (Reported) Hydrocodone/Acetaminophen 1 Each Tablet 1 TAB PO EVERY 4-6 HOURS PRN PRN PAIN ( Reported) Metoclopramide HCl 5 Mg Tablet 5 MG PO AC (Reported) Metoclopramide HCl 5 Mg Tablet 10 MG PO HS (Reported) TAKES 2 (5MG) TABLETS Ondansetron HCl 8 Mg Tablet 8 MG PO TID PRN PRN NAUSEA/VOMITING (Reported) Zolpidem Tartrate 5 Mg Tablet 5 MG PO HS (Reported) Past Hxtewwg-Vljqnq-Icvwrt Hx Patient Social History Marrital Status: Alcohol Use: Denies Use Recreational Drug Use: No Smoking Status: Never a Smoker Physical Abuse Screen: No Sexual Abuse: No Recent Foreign Travel: No Contact w/other who traveled: No Recent Hopitalizations: No Recent Infectious Disease Expo: No Immunizations Up To Date Tetanus Booster (TDap): Unknown Seasonal Allergies Seasonal Allergies: No Surgeries HX Surgeries: Yes (PILONIDAL CYST; COLON RESECTION WITH ILEOSTOMY) Surgeries: Abdominal, Appendectomy Respiratory Hx Respiratory Disorders: Yes (MEDIASTINAL LYMPHADENOPATHY) Cardiovascular Hx Cardiovascular Disorders: Yes Cardiac Disorders: Hypertension Neurological Hx Neurological Disorders: No Reproductive System Hx Reproductive Disorders: No Sexually Transmitted Disease: No HIV/AIDS: No Genitourinary Hx Genitourinary Disorders: No Gastrointestinal Hx Gastrointestinal Disorders: Yes (METASTATIC COLON CANCER) Gastrointestinal Disorders: Gastroesophageal Reflux, Obstructive Bowel Musculoskeletal Hx Musculoskeletal Disorders: No Endocrine Hx Endocrine Disorders: Yes Endocrine Disorders: Diabetes, Non-Insulin dep HEENT HX ENT Disorders: Yes (GLASSES) Loss of Vision: Bilateral Hearing Impairment: Denies 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) Cancer: Colon Psychosocial Hx Psychiatric Problems: No Integumentary HX Skin/Integumentary Disorder: No Blood Transfusions Hx Blood Disorders: Yes (ANEMIA) Adverse Reaction to a Blood Tr: No (RECENT TRANSFUSION WITHOUT PROBLEMS) Family Medical History Significant Family History: CAD Under 55 Years Old Family Hx: Hypertension 19 FATHER Myocardial infarction 19 FATHER Constitutional: malaise weakness Respiratory: no symptoms reported Gastrointestinal: nausea vomiting Physical Exam Vital Signs Vital Sign - Last 12Hours 05/19/16 02:04 Temp 101.5 Pulse 129 Resp 32 B/P 145/78 Pulse Ox 96 O2 Delivery Room Air Capillary Refill : Less Than 3 Seconds General Appearance: Chronically ill HEENT: PERRL/EOMI Neck: Full Range of Motion Normal Inspection Non Tender Supple Respiratory: Lungs Clear Cardiovascular: Regular Rate, Rhythm No Edema Gastrointestinal: Normal Bowel Sounds Non Tender Soft Other (ileostomy in place with a soft and liquid stool in bag;) Rectal: Deferred Back: Normal Inspection No CVA Tenderness No Vertebral Tenderness Extremity: Non Tender No Calf Tenderness Neurologic/Psychiatric: Alert Oriented x3 No Motor/Sensory Deficits Normal Mood/Affect Comments Laboratory Tests 05/19/16 02:17: Blood Urea Nitrogen 34H, Carbon Dioxide Level 14L, Chloride Level 97L, Creatinine 1.78H, Glucose Level 270H, Hematocrit 38L, Hemoglobin 12.8L, Lactic Acid Level 3.2*H, Lymphocytes # (Auto) 0.2L, Lymphocytes (%) (Auto) 2L, Mean Corpuscular Hemoglobin 23L, Mean Corpuscular Volume 67L, Mean Platelet Volume 10.6H, Neutrophils # (Auto) 8.9H, Neutrophils (%) (Auto) 92H, Potassium Level 5.7H, Red Cell Distribution Width 29.2H, Sodium Level 124*L 05/19/16 03:36: Urine Bacteria LARGEH, Urine Glucose (UA) 2+H, Urine Granular Casts 2-5H, Urine Hyaline Casts 5-10H, Urine Leukocyte Esterase 1+H, Urine Mucus SMALLH, Urine Protein 2+H, Urine Specific [place] 1.025H 05/19/16 04:27: Lactic Acid Level 2.4*H 05/19/16 06:36: Glucometer 272H 05/19/16 11:11: Glucometer 198H 05/19/16 16:05: Glucometer 196H Laboratory Tests 05/19/16 02:17 Chest Xray: IMPRESSION: Finding consistent with bilateral pulmonary metastasis with increasing interstitial markings and reticular nodular pattern raising question of lymphangitic spread. Assessment/Plan Assessment and Plan 1. Fever, chills, dehydration, hypotension and elevated lactic acid consistent with sepsis-- a. Blood cultures 2, urine culture obtained and are pending; and sputum culture has been requested b. Fluid replacement being given c. patient is receiving IV antibiotics, IV Levaquin, cefepime, and vancomycin. 2. Nausea and Vomiting--resolved with zofran; nondistended abdomen and denies abdominal pain; will obtain Gen Surg consult if recurrs; 3. Recurrent Hyponatremia and Hyperkalemia 4. Metastatic colon cancer with extensive metastasis to liver, peritoneum, lung , and mediastinal lymph nodes a. Cycle number 2 of FOLFOX initiated on 05/18/16 and is ongoing. 5. Abnormal chest x-ray suggestive of pneumonia versus lymphangitic spread-- clinically improved with IV antibiotics consistent with component of pneumonia but does not exclude presence of metastatic disease/lymphangitic spread; a. Pulmonary Consult has been requested. 6. Type II Diabetes with CKD-- Monitor BUN/Cr and use sliding scale for glucose management; 7. Hypertension 8. DVT Prophylaxis a. Monitor counts because of recent chemotherapy and monitor renal function ; b. Give lower dose of Lovenox while awaiting repeat BUN/CR Clinical Quality Measures DVT/VTE Risk/Contraindication: Risk Factor Score Per Nursin RFS Level Per Nursing on Admit: 4+=Very High MEG MOISE MD May 19, 2016 11:57
[2016-05-19] MEDS ORDERED: ENOXAPARIN 40 MG/0.4 ML (LOVENOX) SYR SC SCH (12:00)
[2016-05-19] MEDS ORDERED: ONDANSETRON 4 MG/2 ML (SDV) Z0FRAN IVP PRN (12:00)
[2016-05-19] MEDS ORDERED: HYDROcodone/APAP 5 MG/325 MG (LORTAB) TAB PO PRN (12:00)
[2016-05-19] MEDS ORDERED: CEFEPIME 2 GM/NS 50 ML IVPB IV SCH ×2 (14:00)
[2016-05-19] MEDS: RT-ALBUTEROL SULF 2.5 MG/3 ML PRE-MIX VIAL INH PRN ×2 (14:29→19:08)
[2016-05-19] MEDS ORDERED: METOCLOPRAMIDE INJ 10 MG/2 ML (REGLAN) IVP SCH (16:00)
[2016-05-19] MEDS: METOCLOPRAMIDE 5 MG (REGLAN) TAB PO SCH ×2 (16:45→20:16)
[2016-05-19] MEDS: METOCLOPRAMIDE INJ 10 MG/2 ML (REGLAN) IVP SCH ×2 (16:51→20:26)
[2016-05-19 18:25] LABS: CALCIUM 8.3 MG/DL (8.5-10.1); CREATININE SERUM 1.29 MG/DL (0.60-1.30); MAGNESIUM 1.9 MG/DL (1.8-2.4); POTASSIUM 4.9 MMOL/L (3.6-5.0)
[2016-05-19] MEDS: FAMOTIDINE 20MG/2ML IV (PEPCID) IVP SCH (20:25)
[2016-05-19] MEDS: CATHETER FLUSH 10 ML SYR IV PRN (20:25)
[2016-05-20] VITALS: BP 123/75
[2016-05-20 04:00] VITALS: BP 120/75
[2016-05-20] MEDS: ACETAMINOPHEN 500 MG TAB (TYLENOL) PO PRN (04:02)
[2016-05-20] MEDS: D5 NS 1000 ML IV SOLUTION 1,000 ML IV SCH ×4 (04:04→21:34)
[2016-05-20] MEDS ORDERED: CEFEPIME 2 GM/NS 50 ML IVPB IV SCH ×4 (05:00)
[2016-05-20 05:45] LABS: BASOPHILS % (AUTO) 0 % (0-10); EOSINOPHILS # (AUTO) 0.2 10^3/uL (0.0-0.3); EOSINOPHILS % (AUTO) 4 % (0-10); LYMPHOCYTES # (AUTO) 0.3 X 10^3 (1.0-4.0); LYMPHOCYTES % (AUTO) 6 % (12-44); MEAN CORPUSCULAR HEMOGLOBIN 23 PG (25-34); MEAN CORPUSCULAR HGB CONC 33 G/DL (32-36); MEAN CORPUSCULAR VOLUME 68 FL (80-99); MEAN PLATELET VOLUME 10.7 FL (7.4-10.4); MONOCYTES # (AUTO) 0.4 X 10^3 (0.0-1.0); MONOCYTES % (AUTO) 8 % (0-12); NEUTROPHILS # (AUTO) 3.4 X 10^3 (1.8-7.8); NEUTROPHILS % (AUTO) 81 % (42-75); PLATELET COUNT 292 10^3/uL (130-400); RED BLOOD COUNT 4.66 10^6/uL (4.35-5.85); RED CELL DISTRIBUTION WIDTH 29.2 % (10.0-14.5); WHITE BLOOD COUNT 4.2 10^3/uL (4.3-11.0)
[2016-05-20] MEDS: METOCLOPRAMIDE INJ 10 MG/2 ML (REGLAN) IVP SCH ×4 (06:00→20:54)
[2016-05-20] MEDS: inSUlin (REGULAR) HUMAN 1 UNIT/0.01 ML (CHARGE PER UNIT) SC SCH ×4 (06:00→20:54)
[2016-05-20 06:04] LABS: ALBUMIN 2.7 G/DL (3.2-4.5); BILIRUBIN,TOTAL 0.3 MG/DL (0.1-1.0); CALCIUM 8.3 MG/DL (8.5-10.1); CREATININE SERUM 1.22 MG/DL (0.60-1.30); MAGNESIUM 1.9 MG/DL (1.8-2.4); POTASSIUM 4.6 MMOL/L (3.6-5.0); TOTAL PROTEIN 5.4 G/DL (6.4-8.2)
[2016-05-20] MEDS: METOCLOPRAMIDE 5 MG (REGLAN) TAB PO SCH ×5 (06:09→20:58)
--- NOTE | 2016-05-20 06:42 | Pulmonary Consultation ---
History of Present Illness History of Present Illness Date of Consultation 05/20/16 06:35 Date of Admission History of Present Illness 70yo with hx of metastatic colon cancer with lever, peritoneum, lung and mediastinal mets. He also had recent hospitalization secondary to hyponatremia and hyperkalemia. He presented to ED via EMS secondary extreme weakness and was found to have sepsis with fever of 102. CXR showed bilateral infiltrates. He was started on vancomycin, levofloxacin and cefepime and admitted to floor. I am consulted for pulmonary management. Allergies and Home Medications Allergies Coded Allergies: No Known Drug Allergies (Unverified , 04/28/16) Home Medications Cholecalciferol (Vitamin D3) 2,000 Unit Tablet 2,000 UNIT PO DAILY (Reported) Famotidine 20 Mg Tablet 20 MG PO BID (Reported) Hydrocodone/Acetaminophen 1 Each Tablet 1 TAB PO EVERY 4-6 HOURS PRN PRN PAIN ( Reported) Metoclopramide HCl 5 Mg Tablet 5 MG PO AC (Reported) Metoclopramide HCl 5 Mg Tablet 10 MG PO HS (Reported) TAKES 2 (5MG) TABLETS Ondansetron HCl 8 Mg Tablet 8 MG PO TID PRN PRN NAUSEA/VOMITING (Reported) Zolpidem Tartrate 5 Mg Tablet 5 MG PO HS (Reported) Past Cpmwcmd-Jegqhv-Qrulfp Hx Patient Social History Alcohol Use: Denies Use Recreational Drug Use: No Smoking Status: Never a Smoker Recent Foreign Travel: No Contact w/Someone Who Travel: No Recent Infectious Disease Expo: No Recent Hopitalizations: No Physical Abuse Screen: No Sexual Abuse: No Immunizations Up To Date Tetanus Booster (TDap): Unknown Seasonal Allergies Seasonal Allergies: No Surgeries HX Surgeries: Yes (PILONIDAL CYST; COLON RESECTION WITH ILEOSTOMY) Surgeries: Abdominal, Appendectomy Respiratory Hx Respiratory Disorders: Yes (MEDIASTINAL LYMPHADENOPATHY) Cardiovascular Hx Cardiac Disorders: Yes Cardiac Disorders: Hypertension Neurological Hx Neurological Disorders: No Reproductive System Hx Reproductive Disorders: No Sexually Transmitted Disease: No HIV/AIDS: No Genitourinary Hx Genitourinary Disorders: No Gastrointestinal Hx Gastrointestinal Disorders: Yes (METASTATIC COLON CANCER) Gastrointestinal Disorders: Gastroesophageal Reflux, Obstructive Bowel Musculoskeletal Hx Musculoskeletal Disorders: No Endocrine Hx Endocrine Disorders: Yes Endocrine Disorders: Diabetes, Non-Insulin dep HEENT HX ENT Disorders: Yes (GLASSES) Loss of Vision: Bilateral Hearing Impairment: Denies 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) Cancer: Colon Psychosocial Hx Psychiatric Problems: No Integumentary HX Skin/Integumentary Disorder: No Blood Transfusions Hx Blood Disorders: Yes (ANEMIA) Adverse Reaction to a Blood Tr: No (RECENT TRANSFUSION WITHOUT PROBLEMS) Family Medical History Significant Family History: CAD Under 55 Years Old Family Medial History: Hypertension 19 FATHER Myocardial infarction 19 FATHER Exam Exam Vital Signs Date Time Temp Pulse Resp B/P Pulse Ox O2 Delivery O2 Flow Rate FiO2 05/20/16 04:00 96.3 77 18 120/75 98 Room Air 05/20/16 00:00 97.7 93 20 123/75 99 Room Air 05/19/16 20:05 97 Room Air 05/19/16 20:00 97.7 90 20 121/66 98 Room Air 05/19/16 19:08 93 05/19/16 16:00 98.6 91 18 108/64 99 Room Air 05/19/16 14:29 97 05/19/16 14:00 98.5 85 20 100/67 97 Room Air 05/19/16 12:00 98.7 70 18 107/61 95 05/19/16 10:00 97.4 99 20 105/59 93 Room Air 05/19/16 08:25 99 Room Air 05/19/16 08:00 97.0 97 20 94/61 94 Room Air 05/19/16 06:53 91 05/19/16 06:53 91 I & O 05/20/16 07:00 Intake Total 3805 ml Output Total 1800 ml Balance 2005 ml General Appearance: Chronically ill HEENT: PERRL/EOMI Neck: Full Range of Motion Normal Inspection Non Tender Supple Respiratory: Lungs Clear Cardiovascular: Regular Rate, Rhythm No Edema Capillary Refill: Less Than 3 Seconds Extremity: Non Tender No Calf Tenderness Neurologic/Psychiatric: Alert Oriented x3 No Motor/Sensory Deficits Normal Mood/Affect Skin: Normal Color Warm/Dry Results Lab Laboratory Tests 05/19/16 02:17 05/19/16 17:48 05/20/16 05:10 Assessment/Plan Assessment/Plan Sepsis with pneumonia Continue vanco, Levaquin, and cefepime -stewart cultures pending, IVF -question of lymphangitic spread - will check CT after pneumonia has resolved -PET from 05/04 shows extensive pulmonary mets with 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 -pt is undergoing chemotherapy cycle 2 started 05/18/16 Clinical Quality Measures DVT/VTE Risk/Contraindication: Risk Factor Score Per Nursin RFS Level Per Nursing on Admit: 4+=Very High AREN ANTHONY DO May 20, 2016 06:42
[2016-05-20 08:00] VITALS: BP 109/69
[2016-05-20] MEDS: RT-ALBUTEROL SULF 2.5 MG/3 ML PRE-MIX VIAL INH PRN (08:13)
[2016-05-20] MEDS: VANCOMYCIN 1500 MG/NS 500 ML IVPB IV SCH ×2 (09:36)
[2016-05-20] MEDS: FAMOTIDINE 20MG/2ML IV (PEPCID) IVP SCH ×2 (09:37→20:58)
--- NOTE | 2016-05-20 10:29 | Progress Note (SOAP) ---
Subjective Subjective/Events-last exam Feeling much better; Still has not produced sputum sample but feels congestion is loosening up; Review of Systems General: Fatigue Objective Exam Vital Signs Date Time Temp Pulse Resp B/P Pulse Ox O2 Delivery O2 Flow Rate FiO2 05/20/16 08:32 98 05/20/16 08:00 96.9 70 20 109/69 100 Room Air 05/20/16 04:00 96.3 77 18 120/75 98 Room Air 05/20/16 00:00 97.7 93 20 123/75 99 Room Air 05/19/16 20:05 97 Room Air 05/19/16 20:00 97.7 90 20 121/66 98 Room Air 05/19/16 19:08 93 05/19/16 16:00 98.6 91 18 108/64 99 Room Air 05/19/16 14:29 97 05/19/16 14:00 98.5 85 20 100/67 97 Room Air 05/19/16 12:00 98.7 70 18 107/61 95 I & O 05/20/16 06:59 Intake Total 4305 ml Output Total 2225 ml Balance 2080 ml Capillary Refill : Less Than 3 Seconds General Appearance: No Apparent Distress Neck: Non Tender Supple Respiratory: Decreased Breath Sounds (at bases, left more than right;) Gastrointestinal: normal bowel sounds non tender soft other (ileostomy bag in place) Extremity: Non Tender No Calf Tenderness Neurologic/Psychiatric: Alert Oriented x3 No Motor/Sensory Deficits 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 Norm as 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 Results Lab Laboratory Tests 05/19/16 11:11: Glucometer 198H 05/19/16 16:05: Glucometer 196H 05/19/16 17:48: Anion Gap 9, BUN/Creatinine Ratio 22, Blood Urea Nitrogen 29H, Calcium Level 8.3L, Carbon Dioxide Level 16L, Chloride Level 102, Creatinine 1.29, Estimat Glomerular Filtration Rate 55, Glucose Level 210H, Lactic Acid Level 1.6, Magnesium Level 1.9, Potassium Level 4.9, Sodium Level 127L 05/19/16 20:33: Glucometer 212H 05/20/16 05:10: Alanine Aminotransferase (ALT/SGPT) 16, Albumin 2.7L, Alkaline Phosphatase 84, Anion Gap 9, Aspartate Amino Transf (AST/SGOT) 18, BUN/Creatinine Ratio 22, Basophils # (Auto) 0.0, Basophils (%) (Auto) 0, Blood Urea Nitrogen 27H, Calcium Level 8.3L, Carbon Dioxide Level 16L, Chloride Level 101, Creatinine 1.22, Eosinophils # (Auto) 0.2, Eosinophils (%) (Auto) 4, Estimat Glomerular Filtration Rate 59, Glucose Level 163H, Hematocrit 32L, Hemoglobin 10.5L, Lymphocytes # (Auto) 0.3L, Lymphocytes (%) (Auto) 6L, Magnesium Level 1.9, Mean Corpuscular Hemoglobin 23L, Mean Corpuscular Hemoglobin Concent 33, Mean Corpuscular Volume 68L, Mean Platelet Volume 10.7H, Monocytes # (Auto) 0.4, Monocytes (%) (Auto) 8, Neutrophils # (Auto) 3.4, Neutrophils (%) (Auto) 81H, Platelet Count 292, Potassium Level 4.6, Red Blood Count 4.66, Red Cell Distribution Width 29.2H, Sodium Level 126L, Total Bilirubin 0.3, Total Protein 5.4L, White Blood Count 4.2L Microbiology 05/19/16 Blood Culture - Preliminary, Resulted No growth 05/19/16 Urine Culture - Preliminary, Resulted NO GROWTH Assessment/Plan Assessment/Plan Assess & Plan/Chief Complaint 1. Fever, chills, dehydration, hypotension and elevated lactic acid consistent with sepsis-- a. Blood cultures 2, 1 bottle growing coag neg staph, likely a skin contaminant; b. Continue IV antibiotics, IV Levaquin, cefepime, and vancomycin. 2. Nausea and Vomiting--resolved with zofran; 3. Recurrent Hyponatremia and Hyperkalemia-both are improved; 4. Metastatic colon cancer with extensive metastasis to liver, peritoneum, lung , and mediastinal lymph nodes a. Cycle number 2 of FOLFOX initiated on 05/18/16 and is ongoing. 5. Abnormal chest x-ray suggestive of pneumonia versus lymphangitic spread-- clinically improved with IV antibiotics consistent with component of pneumonia but does not exclude presence of metastatic disease/lymphangitic spread; a. Pulmonary Consult noted and is appreciated; 6. Type II Diabetes with CKD-- Monitor BUN/Cr and use sliding scale for glucose management; 7. Hypertension 8. DVT Prophylaxis a. Monitor counts because of recent chemotherapy and monitor renal function ; b. Adjust dose of Lovenox since repeat BUN/CR has improved; Diagnosis/Problems: Clinical Quality Measures DVT/VTE Risk/Contraindication: Risk Factor Score Per Nursin RFS Level Per Nursing on Admit: 4+=Very High MEG MOISE MD May 20, 2016 10:28
[2016-05-20 12:00] VITALS: BP 123/74
[2016-05-20] MEDS: LEVOFLOXACIN 750 MG/150 ML D5W (PRE-MIX) IV SCH (12:50)
[2016-05-20] MEDS: ENOXAPARIN 40 MG/0.4 ML (LOVENOX) SYR SC SCH (12:51)
[2016-05-20 16:20] VITALS: BP 118/71
[2016-05-20] MEDS: CEFEPIME 2 GM/NS 50 ML IVPB IV SCH ×2 (16:48)
[2016-05-20] MEDS ORDERED: ENOXAPARIN 30 MG/0.3 ML (LOVENOX) SYR SC SCH (17:45)
[2016-05-20 20:57] VITALS: BP 106/61
[2016-05-21] VITALS: BP 133/82
[2016-05-21] MEDS: ACETAMINOPHEN 500 MG TAB (TYLENOL) PO PRN (00:51)
[2016-05-21] MEDS: D5 NS 1000 ML IV SOLUTION 1,000 ML IV SCH ×3 (00:52→17:30)
[2016-05-21] MEDS: METOCLOPRAMIDE INJ 10 MG/2 ML (REGLAN) IVP SCH ×4 (02:00→20:04)
[2016-05-21 04:00] VITALS: BP 112/53
[2016-05-21] MEDS: CEFEPIME 2 GM/NS 50 ML IVPB IV SCH ×4 (05:28→17:30)
[2016-05-21] MEDS: inSUlin (REGULAR) HUMAN 1 UNIT/0.01 ML (CHARGE PER UNIT) SC SCH ×4 (05:28→21:00)
[2016-05-21] MEDS: METOCLOPRAMIDE 5 MG (REGLAN) TAB PO SCH ×4 (05:28→20:05)
[2016-05-21] MEDS ORDERED: LEVOFLOXACIN 750 MG/150 ML D5W (PRE-MIX) IV SCH (06:30)
[2016-05-21] MEDS ORDERED: TROUGH ORDER-PHARMACY XX NR (07:00)
[2016-05-21 07:07] LABS: BASOPHILS % (AUTO) 0 % (0-10); EOSINOPHILS # (AUTO) 0.2 10^3/uL (0.0-0.3); EOSINOPHILS % (AUTO) 8 % (0-10); LYMPHOCYTES # (AUTO) 0.2 X 10^3 (1.0-4.0); LYMPHOCYTES % (AUTO) 8 % (12-44); MEAN CORPUSCULAR HEMOGLOBIN 23 PG (25-34); MEAN CORPUSCULAR HGB CONC 33 G/DL (32-36); MEAN CORPUSCULAR VOLUME 68 FL (80-99); MEAN PLATELET VOLUME 10.8 FL (7.4-10.4); MONOCYTES # (AUTO) 0.2 X 10^3 (0.0-1.0); MONOCYTES % (AUTO) 7 % (0-12); NEUTROPHILS # (AUTO) 2.4 X 10^3 (1.8-7.8); NEUTROPHILS % (AUTO) 78 % (42-75); PLATELET COUNT 284 10^3/uL (130-400); RED BLOOD COUNT 4.42 10^6/uL (4.35-5.85); RED CELL DISTRIBUTION WIDTH 28.8 % (10.0-14.5); WHITE BLOOD COUNT 3.1 10^3/uL (4.3-11.0)
[2016-05-21 07:23] LABS: ANION GAP 7 MMOL/L (5-14); BLOOD UREA NITROGEN 26 MG/DL (7-18); BUN/CREATININE RATIO 23; CALCIUM 8.1 MG/DL (8.5-10.1); CARBON DIOXIDE 16 MMOL/L (21-32); CHLORIDE 106 MMOL/L (98-107); CREATININE SERUM 1.12 MG/DL (0.60-1.30); GFR ESTIMATED > 60; GLUCOSE 159 MG/DL (70-105); POTASSIUM 4.2 MMOL/L (3.6-5.0); SODIUM 129 MMOL/L (135-145)
--- NOTE | 2016-05-21 07:56 | Pulmonary Progress Note ---
Subjective Subjective/Events-last exam No complications noted. Exam Exam Vital Signs Date Time Temp Pulse Resp B/P Pulse Ox O2 Delivery O2 Flow Rate FiO2 05/21/16 04:00 97.8 69 18 112/53 98 Room Air 05/21/16 00:00 96.0 87 18 133/82 100 Room Air 05/20/16 20:57 96.8 108 20 106/61 99 Room Air 05/20/16 20:00 Room Air 05/20/16 16:20 96.9 83 20 118/71 99 Room Air 05/20/16 12:00 96.0 74 20 123/74 0 Room Air 05/20/16 08:32 98 05/20/16 08:00 97 Room Air 05/20/16 08:00 96.9 70 20 109/69 100 Room Air I & O 05/21/16 07:00 Intake Total 2540 ml Output Total 1850 ml Balance 690 ml General Appearance: Chronically ill HEENT: PERRL/EOMI Neck: Full Range of Motion Normal Inspection Non Tender Supple Respiratory: Lungs Clear Cardiovascular: Regular Rate, Rhythm No Edema Capillary Refill: Less Than 3 Seconds Extremity: Non Tender No Calf Tenderness Neurologic/Psychiatric: Alert Oriented x3 No Motor/Sensory Deficits Normal Mood/Affect Skin: Normal Color Warm/Dry Results Lab Laboratory Tests 05/19/16 17:48 05/20/16 05:10 05/21/16 07:00 Assessment/Plan Assessment/Plan Sepsis with pneumonia vanco, Levaquin, and cefepime -stewart cultures pending, IVF -question of lymphangitic spread - will check CT after pneumonia has resolved -PET from 05/04 shows extensive pulmonary mets with 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 -pt is undergoing chemotherapy cycle 2 started 05/18/16 Clinical Quality Measures DVT/VTE Risk/Contraindication: Risk Factor Score Per Nursin RFS Level Per Nursing on Admit: 4+=Very High AREN ANTHONY DO May 21, 2016 07:56
[2016-05-21 08:00] VITALS: BP 130/77
[2016-05-21] MEDS: VANCOMYCIN 1500 MG/NS 500 ML IVPB IV SCH ×2 (08:23)
[2016-05-21] MEDS: FAMOTIDINE 20MG/2ML IV (PEPCID) IVP SCH ×2 (08:23→20:05)
[2016-05-21] MEDS: RT-ALBUTEROL SULF 2.5 MG/3 ML PRE-MIX VIAL INH PRN (10:53)
--- NOTE | 2016-05-21 11:23 | Progress Note (SOAP) ---
Subjective Subjective/Events-last exam Eating regular diet; States his energy is much improved; No nausea or vomiting at this time; Denies abdominal pain; Objective Exam Vital Signs Date Time Temp Pulse Resp B/P Pulse Ox O2 Delivery O2 Flow Rate FiO2 05/21/16 10:54 98 05/21/16 08:00 96.1 73 20 130/77 98 Room Air 05/21/16 04:00 97.8 69 18 112/53 98 Room Air 05/21/16 00:00 96.0 87 18 133/82 100 Room Air 05/20/16 20:57 96.8 108 20 106/61 99 Room Air 05/20/16 20:00 Room Air 05/20/16 16:20 96.9 83 20 118/71 99 Room Air 05/20/16 12:00 96.0 74 20 123/74 0 Room Air I & O 05/21/16 07:00 Intake Total 2540 ml Output Total 1850 ml Balance 690 ml Capillary Refill : Less Than 3 Seconds General Appearance: No Apparent Distress HEENT: PERRL/EOMI Neck: Full Range of Motion Non Tender Supple Respiratory: Lungs Clear Cardiovascular: Regular Rate, Rhythm No Edema No Gallop No JVD Gastrointestinal: normal bowel sounds non tender soft other (ileostomy in place with liguid stool with some solid particles in bag;) Extremity: Non Tender No Calf Tenderness Neurologic/Psychiatric: Alert Oriented x3 No Motor/Sensory Deficits 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 as Tested Results Lab Laboratory Tests 05/19/16 17:48 05/20/16 05:10 05/21/16 07:00 Laboratory Tests 05/20/16 12:46: Glucometer 163H 05/20/16 16:17: Glucometer 163H 05/20/16 20:39: Glucometer 177H 05/21/16 05:26: Glucometer 150H 05/21/16 07:00: Anion Gap 7, BUN/Creatinine Ratio 23, Basophils # (Auto) 0.0, Basophils (%) ( Auto) 0, Blood Urea Nitrogen 26H, Calcium Level 8.1L, Carbon Dioxide Level 16L, Chloride Level 106, Creatinine 1.12, Eosinophils # (Auto) 0.2, Eosinophils (%) ( Auto) 8, Estimat Glomerular Filtration Rate > 60, Glucose Level 159H, Hematocrit 30L, Hemoglobin 10.1L, Lymphocytes # (Auto) 0.2L, Lymphocytes (%) ( Auto) 8L, Mean Corpuscular Hemoglobin 23L, Mean Corpuscular Hemoglobin Concent 33, Mean Corpuscular Volume 68L, Mean Platelet Volume 10.8H, Monocytes # (Auto) 0.2, Monocytes (%) (Auto) 7, Neutrophils # (Auto) 2.4, Neutrophils (%) (Auto) 78H, Platelet Count 284, Potassium Level 4.2, Red Blood Count 4.42, Red Cell Distribution Width 28.8H, Sodium Level 129L, Vancomycin Level Trough 14.1, White Blood Count 3.1L Microbiology 05/19/16 Blood Culture - Preliminary, Resulted No growth 05/19/16 Urine Culture - Final, Complete NO GROWTH Assessment/Plan Assessment/Plan Assess & Plan/Chief Complaint 1. Fever, chills, dehydration, hypotension and elevated lactic acid consistent with sepsis-- a. Blood cultures 2, 1 bottle growing coag neg staph, likely a skin contaminant; b. Continue IV antibiotics, IV Levaquin, cefepime, and vancomycin. 2. Nausea and Vomiting--resolved with zofran; 3. Recurrent Hyponatremia and Hyperkalemia-both are improved; Na is 129 and K + is 4.2. 4. Metastatic colon cancer with extensive metastasis to liver, peritoneum, lung , and mediastinal lymph nodes a. Cycle number 2 of FOLFOX initiated on 05/18/16 and removed on 05/19/16. 5. Abnormal chest x-ray suggestive of pneumonia versus lymphangitic spread-- clinically improved with IV antibiotics consistent with component of pneumonia but does not exclude presence of metastatic disease/lymphangitic spread; a. Pulmonary Consult noted and is appreciated; 6. Type II Diabetes with CKD-- Monitor BUN/Cr and use sliding scale for glucose management; 7. Hypertension 8. DVT Prophylaxis a. Monitor counts because of recent chemotherapy and monitor renal function ; b. Adjust dose of Lovenox since repeat BUN/CR has improved; Diagnosis/Problems: Clinical Quality Measures DVT/VTE Risk/Contraindication: Risk Factor Score Per Nursin RFS Level Per Nursing on Admit: 4+=Very High MEG MOISE MD May 21, 2016 11:22
[2016-05-21] MEDS: LEVOFLOXACIN 750 MG/150 ML D5W (PRE-MIX) IV SCH (11:32)
[2016-05-21 12:00] VITALS: BP 126/83
[2016-05-21] MEDS: ENOXAPARIN 40 MG/0.4 ML (LOVENOX) SYR SC SCH (14:09)
[2016-05-21 15:54] VITALS: BP 121/76
[2016-05-21 19:22] VITALS: BP 124/70
[2016-05-21] MEDS: CATHETER FLUSH 10 ML SYR IV PRN (20:05)
[2016-05-22] VITALS: BP 116/63
[2016-05-22] MEDS: D5 NS 1000 ML IV SOLUTION 1,000 ML IV SCH ×5 (00:25→20:25)
[2016-05-22 04:00] VITALS: BP 125/89
[2016-05-22] MEDS: METOCLOPRAMIDE INJ 10 MG/2 ML (REGLAN) IVP SCH ×4 (05:01→20:54)
[2016-05-22] MEDS: CEFEPIME 2 GM/NS 50 ML IVPB IV SCH ×4 (05:01→16:55)
[2016-05-22] MEDS: METOCLOPRAMIDE 5 MG (REGLAN) TAB PO SCH ×4 (05:01→20:35)
[2016-05-22] MEDS: ACETAMINOPHEN 500 MG TAB (TYLENOL) PO PRN ×2 (05:23→22:15)
[2016-05-22 05:38] LABS: BASOPHILS % (AUTO) 0 % (0-10); EOSINOPHILS # (AUTO) 0.2 10^3/uL (0.0-0.3); EOSINOPHILS % (AUTO) 7 % (0-10); LYMPHOCYTES # (AUTO) 0.3 X 10^3 (1.0-4.0); LYMPHOCYTES % (AUTO) 8 % (12-44); MEAN CORPUSCULAR HEMOGLOBIN 23 PG (25-34); MEAN CORPUSCULAR HGB CONC 33 G/DL (32-36); MEAN CORPUSCULAR VOLUME 69 FL (80-99); MONOCYTES # (AUTO) 0.2 X 10^3 (0.0-1.0); MONOCYTES % (AUTO) 7 % (0-12); NEUTROPHILS # (AUTO) 2.6 X 10^3 (1.8-7.8); NEUTROPHILS % (AUTO) 78 % (42-75); PLATELET COUNT 290 10^3/uL (130-400); RED BLOOD COUNT 4.47 10^6/uL (4.35-5.85); WHITE BLOOD COUNT 3.4 10^3/uL (4.3-11.0)
[2016-05-22 05:57] LABS: ANION GAP 7 MMOL/L (5-14); BLOOD UREA NITROGEN 22 MG/DL (7-18); BUN/CREATININE RATIO 21; CALCIUM 8.1 MG/DL (8.5-10.1); CARBON DIOXIDE 15 MMOL/L (21-32); CHLORIDE 108 MMOL/L (98-107); CREATININE SERUM 1.03 MG/DL (0.60-1.30); GFR ESTIMATED > 60; GLUCOSE 146 MG/DL (70-105); POTASSIUM 4.1 MMOL/L (3.6-5.0); SODIUM 130 MMOL/L (135-145)
[2016-05-22] MEDS: inSUlin (REGULAR) HUMAN 1 UNIT/0.01 ML (CHARGE PER UNIT) SC SCH ×4 (06:00→22:09)
[2016-05-22 08:00] VITALS: BP 130/75
[2016-05-22] MEDS: VANCOMYCIN 1500 MG/NS 500 ML IVPB IV SCH ×2 (08:30)
[2016-05-22] MEDS: FAMOTIDINE 20MG/2ML IV (PEPCID) IVP SCH ×2 (08:31→20:35)
--- NOTE | 2016-05-22 11:07 | Progress Note-Standard ---
Standard Progress Note Progress Notes/Assess & Plan Progress/Assessment & Plan 70-year-old male with metastatic colon cancer who is on chemotherapy with FOLFOX regimen, admitted with fever and sepsis syndrome. She is on broad- spectrum antibiotics with the cefepime, Levaquin and vancomycin with improvement. Cultures negative so far and patient has not been able to provide a sputum sample yet. He is feeling better and eating better. No temperature spikes. Colostomy functioning well. Exam is stable. Labs reviewed and stable or better. Continue triple antibiotic therapy. Monitor labs serially. NITO BERNAL May 22, 2016 11:07
[2016-05-22] MEDS: LEVOFLOXACIN 750 MG/150 ML D5W (PRE-MIX) IV SCH (11:24)
[2016-05-22 12:00] VITALS: BP 112/76
[2016-05-22] MEDS: ENOXAPARIN 40 MG/0.4 ML (LOVENOX) SYR SC SCH (14:06)
[2016-05-22 16:00] VITALS: BP 117/72
[2016-05-22] MEDS: CATHETER FLUSH 10 ML SYR IV PRN (20:35)
[2016-05-23] VITALS: BP 131/71
[2016-05-23] MEDS: D5 NS 1000 ML IV SOLUTION 1,000 ML IV SCH ×4 (01:26→23:05)
[2016-05-23] MEDS: METOCLOPRAMIDE INJ 10 MG/2 ML (REGLAN) IVP SCH ×4 (04:56→20:13)
[2016-05-23] MEDS: CEFEPIME 2 GM/NS 50 ML IVPB IV SCH ×4 (05:01→17:58)
[2016-05-23] MEDS: METOCLOPRAMIDE 5 MG (REGLAN) TAB PO SCH ×4 (05:01→20:13)
[2016-05-23 05:40] LABS: BASOPHILS % (AUTO) 1 % (0-10); EOSINOPHILS # (AUTO) 0.3 10^3/uL (0.0-0.3); EOSINOPHILS % (AUTO) 9 % (0-10); LYMPHOCYTES # (AUTO) 0.3 X 10^3 (1.0-4.0); LYMPHOCYTES % (AUTO) 11 % (12-44); MEAN CORPUSCULAR HEMOGLOBIN 23 PG (25-34); MEAN CORPUSCULAR HGB CONC 33 G/DL (32-36); MEAN CORPUSCULAR VOLUME 69 FL (80-99); MEAN PLATELET VOLUME 10.3 FL (7.4-10.4); MONOCYTES # (AUTO) 0.3 X 10^3 (0.0-1.0); MONOCYTES % (AUTO) 9 % (0-12); NEUTROPHILS # (AUTO) 2.2 X 10^3 (1.8-7.8); NEUTROPHILS % (AUTO) 71 % (42-75); PLATELET COUNT 277 10^3/uL (130-400); RED BLOOD COUNT 4.39 10^6/uL (4.35-5.85); RED CELL DISTRIBUTION WIDTH 29.4 % (10.0-14.5); WHITE BLOOD COUNT 3.1 10^3/uL (4.3-11.0)
[2016-05-23 06:00] LABS: CREATININE SERUM 1.22 MG/DL (0.60-1.30)
[2016-05-23] MEDS: inSUlin (REGULAR) HUMAN 1 UNIT/0.01 ML (CHARGE PER UNIT) SC SCH ×4 (06:00→20:49)
[2016-05-23 08:00] VITALS: BP 126/62
[2016-05-23] MEDS: VANCOMYCIN 1500 MG/NS 500 ML IVPB IV SCH ×2 (08:49)
[2016-05-23] MEDS: FAMOTIDINE 20MG/2ML IV (PEPCID) IVP SCH ×2 (08:49→20:13)
[2016-05-23] MEDS: LEVOFLOXACIN 750 MG/150 ML D5W (PRE-MIX) IV SCH (11:49)
--- NOTE | 2016-05-23 13:26 | Progress Note-Standard ---
Standard Progress Note Progress Notes/Assess & Plan Progress/Assessment & Plan 70-year-old male with metastatic colon cancer who is on chemotherapy with FOLFOX regimen, admitted with fever and sepsis syndrome. He is on broad- spectrum antibiotics with the cefepime, Levaquin and vancomycin D#6 with improvement. Cultures negative so far. Overall he is feeling better but complained of diffuse sore spots in the mouth as well as scalded feeling on his tongue. No temperature spikes. Colostomy functioning well but had an accident this morning. He would like to talk to a colostomy nurse regarding other options for the colostomy bag. Physical exam is stable and no obvious mouth sores or other lesions noted. Labs reviewed and gradually declining WBC and ANC most likely due to recent chemotherapy. Continue triple antibiotic therapy. Monitor labs serially. I will order a CMP as well as magnesium level for tomorrow morning. NITO BERNAL May 23, 2016 13:25
[2016-05-23] MEDS: ENOXAPARIN 40 MG/0.4 ML (LOVENOX) SYR SC SCH (14:29)
[2016-05-23 16:00] VITALS: BP 123/75
[2016-05-24] VITALS: BP 99/59
[2016-05-24] MEDS: ACETAMINOPHEN 500 MG TAB (TYLENOL) PO PRN (00:44)
[2016-05-24] MEDS: CEFEPIME 2 GM/NS 50 ML IVPB IV SCH ×4 (04:01→17:08)
[2016-05-24] MEDS: METOCLOPRAMIDE INJ 10 MG/2 ML (REGLAN) IVP SCH ×4 (05:09→20:00)
[2016-05-24] MEDS: METOCLOPRAMIDE 5 MG (REGLAN) TAB PO SCH ×4 (05:09→19:57)
[2016-05-24 05:15] LABS: BASOPHILS % (AUTO) 1 % (0-10); EOSINOPHILS # (AUTO) 0.3 10^3/uL (0.0-0.3); EOSINOPHILS % (AUTO) 6 % (0-10); LYMPHOCYTES # (AUTO) 0.4 X 10^3 (1.0-4.0); LYMPHOCYTES % (AUTO) 10 % (12-44); MEAN CORPUSCULAR HEMOGLOBIN 23 PG (25-34); MEAN CORPUSCULAR HGB CONC 33 G/DL (32-36); MEAN CORPUSCULAR VOLUME 69 FL (80-99); MONOCYTES # (AUTO) 0.4 X 10^3 (0.0-1.0); MONOCYTES % (AUTO) 10 % (0-12); NEUTROPHILS # (AUTO) 3.1 X 10^3 (1.8-7.8); NEUTROPHILS % (AUTO) 73 % (42-75); PLATELET COUNT 280 10^3/uL (130-400); RED BLOOD COUNT 4.29 10^6/uL (4.35-5.85); RED CELL DISTRIBUTION WIDTH 29.3 % (10.0-14.5); WHITE BLOOD COUNT 4.2 10^3/uL (4.3-11.0)
[2016-05-24 05:29] LABS: ALBUMIN 2.5 G/DL (3.2-4.5); BILIRUBIN,TOTAL 0.3 MG/DL (0.1-1.0); CREATININE SERUM 1.31 MG/DL (0.60-1.30); MAGNESIUM 1.6 MG/DL (1.8-2.4); POTASSIUM 4.2 MMOL/L (3.6-5.0); TOTAL PROTEIN 4.8 G/DL (6.4-8.2)
[2016-05-24] MEDS: inSUlin (REGULAR) HUMAN 1 UNIT/0.01 ML (CHARGE PER UNIT) SC SCH ×4 (05:31→21:00)
[2016-05-24] MEDS: D5 NS 1000 ML IV SOLUTION 1,000 ML IV SCH ×2 (05:45→11:12)
--- NOTE | 2016-05-24 07:05 | Pulmonary Progress Note ---
Subjective Subjective/Events-last exam pt feels improved Exam Exam Vital Signs Date Time Temp Pulse Resp B/P Pulse Ox O2 Delivery O2 Flow Rate FiO2 05/24/16 00:00 97.0 65 20 99/59 98 Room Air 05/23/16 20:15 Room Air 05/23/16 19:11 94 05/23/16 16:00 96.4 90 20 123/75 99 Room Air 05/23/16 08:00 96.7 70 18 126/62 100 Room Air 05/23/16 07:35 99 I & O 05/24/16 06:59 Intake Total 1490 ml Output Total 3050 ml Balance -1560 ml General Appearance: No Apparent Distress HEENT: PERRL/EOMI Neck: Full Range of Motion Non Tender Supple Respiratory: Lungs Clear Cardiovascular: Regular Rate, Rhythm No Edema No Gallop No JVD Capillary Refill: Less Than 3 Seconds Gastrointestinal: normal bowel sounds non tender soft other Extremity: Non Tender No Calf Tenderness Neurologic/Psychiatric: Alert Oriented x3 No Motor/Sensory Deficits 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 -pt is undergoing chemotherapy cycle 2 started 05/18/16 Clinical Quality Measures DVT/VTE Risk/Contraindication: Risk Factor Score Per Nursin RFS Level Per Nursing on Admit: 4+=Very High AREN ANTHONY DO May 24, 2016 07:05
[2016-05-24 08:00] VITALS: BP 134/68
--- NOTE | 2016-05-24 08:46 | Diagnostic Imaging Report ---
INDICATION: Lower respiratory infection. EXAMINATION: PA and lateral chest. COMPARISON: 05/19/2016. FINDINGS: A right IJ Port-A-Cath tip projects over the SVC. There is a 9 cm area of consolidation in the left lower lung. There are numerous small nodular opacities scattered throughout both lungs. These findings are highly suspicious for metastases. The larger area in the left lower lung could be neoplastic. Consolidating pneumonia could not be excluded. The overall appearance of the chest has not appreciably changed from 05/19/2016. IMPRESSION: Pulmonary metastases. There is a 9 cm consolidation in the left lower lung, probably due to neoplasm. Dictated by: Dictated on workstation # [id number]
[2016-05-24] MEDS: FAMOTIDINE 20MG/2ML IV (PEPCID) IVP SCH ×2 (08:48→19:57)
[2016-05-24] MEDS: CATHETER FLUSH 10 ML SYR IV PRN (08:49)
[2016-05-24] MEDS: LEVOFLOXACIN 750 MG/150 ML D5W (PRE-MIX) IV SCH (11:13)
[2016-05-24] MEDS: IBUPROFEN 800 MG (MOTRIN) TAB PO PRN ×2 (12:36→21:23)
--- NOTE | 2016-05-24 13:55 | Progress Note (SOAP) ---
Subjective Subjective/Events-last exam Reports increased abdominal distension and discomfort; Also complains of increased pain left lower posterior thoracic extending to left flank. He has some nausea but no vomiting. Objective Exam Vital Signs Date Time Temp Pulse Resp B/P Pulse Ox O2 Delivery O2 Flow Rate FiO2 05/24/16 08:00 Room Air 05/24/16 00:00 97.0 65 20 99/59 98 Room Air 05/23/16 20:15 Room Air 05/23/16 19:11 94 05/23/16 16:00 96.4 90 20 123/75 99 Room Air I & O 05/24/16 07:00 Intake Total 1490 ml Output Total 3050 ml Balance -1560 ml Capillary Refill : Less Than 3 Seconds General Appearance: Mild Distress HEENT: PERRL/EOMI Neck: Non Tender Supple Respiratory: Decreased Breath Sounds (decreased breath sounds left base;) Cardiovascular: Regular Rate, Rhythm Gastrointestinal: normal bowel sounds non tender distended other (ileostomy bag filled with air and dark colored fluid;) Extremity: Pedal Edema Neurologic/Psychiatric: Alert Oriented x3 Results Lab Laboratory Tests 05/23/16 16:17: Glucometer 208H 05/23/16 20:47: Glucometer 199H 05/24/16 05:00: Alanine Aminotransferase (ALT/SGPT) 13, Albumin 2.5L, Alkaline Phosphatase 70, Anion Gap 7, Aspartate Amino Transf (AST/SGOT) 12, BUN/Creatinine Ratio 15, Basophils # (Auto) 0.0, Basophils (%) (Auto) 1, Blood Urea Nitrogen 20H, Calcium Level 8.0L, Carbon Dioxide Level 15L, Chloride Level 112H, Creatinine 1.31H, Eosinophils # (Auto) 0.3, Eosinophils (%) (Auto) 6, Estimat Glomerular Filtration Rate 54, Glucose Level 134H, Hematocrit 30L, Hemoglobin 9.8L, Lymphocytes # (Auto) 0.4L, Lymphocytes (%) (Auto) 10L, Magnesium Level 1.6L, Mean Corpuscular Hemoglobin 23L, Mean Corpuscular Hemoglobin Concent 33, Mean Corpuscular Volume 69L, Mean Platelet Volume 10.0, Monocytes # (Auto) 0.4, Monocytes (%) (Auto) 10, Neutrophils # (Auto) 3.1, Neutrophils (%) (Auto) 73, Platelet Count 280, Potassium Level 4.2, Red Blood Count 4.29L, Red Cell Distribution Width 29.3H, Sodium Level 134L, Total Bilirubin 0.3, Total Protein 4.8L, White Blood Count 4.2L 05/24/16 11:24: Glucometer 163H Microbiology 05/19/16 Blood Culture - Final, Complete No growth 05/19/16 Urine Culture - Final, Complete NO GROWTH Assessment/Plan Assessment/Plan Assess & Plan/Chief Complaint 1. Fever, chills, dehydration, hypotension and elevated lactic acid consistent with sepsis-- a. Blood cultures 2, 1 bottle growing coag neg staph, likely a contaminant; b. Continue IV antibiotics, IV Levaquin and cefepime for total of 7 days. Discontinue vancomycin. 2. Nausea and Vomiting--resolved with zofran; 3. Recurrent Hyponatremia and Hyperkalemia-both are improved; Na is up to 134 and K+ is 4.2. 4. Metastatic colon cancer with extensive metastasis to liver, peritoneum, lung , and mediastinal lymph nodes a. Cycle number 2 of FOLFOX initiated on 05/18/16 and removed on 05/19/16. 5. Increased abdominal Distension and discomfort--Check abdominal cat scan; also left lower thoracic pain extending to left flank--Check CT scan chest; 6. Abnormal chest x-ray suggestive of pneumonia versus lymphangitic spread-- clinically improved with IV antibiotics consistent with component of pneumonia but does not exclude presence of metastatic disease/lymphangitic spread; a. Pulmonary Consult noted and is appreciated; 7. Type II Diabetes with CKD-- Monitor BUN/Cr and use sliding scale for glucose management; 8. Hypertension 9. DVT Prophylaxis--Receiving Lovenox; Diagnosis/Problems: Clinical Quality Measures DVT/VTE Risk/Contraindication: Risk Factor Score Per Nursin RFS Level Per Nursing on Admit: 4+=Very High MEG MOISE MD May 24, 2016 13:55
[2016-05-24] MEDS: ENOXAPARIN 40 MG/0.4 ML (LOVENOX) SYR SC SCH (15:59)
[2016-05-24 16:46] VITALS: BP 117/67
[2016-05-25 00:25] VITALS: BP 113/76
[2016-05-25] MEDS: CEFEPIME 2 GM/NS 50 ML IVPB IV SCH ×2 (04:57)
[2016-05-25] MEDS: METOCLOPRAMIDE 5 MG (REGLAN) TAB PO SCH ×4 (05:09→20:16)
[2016-05-25] MEDS: METOCLOPRAMIDE INJ 10 MG/2 ML (REGLAN) IVP SCH ×4 (05:11→20:16)
[2016-05-25] MEDS: inSUlin (REGULAR) HUMAN 1 UNIT/0.01 ML (CHARGE PER UNIT) SC SCH ×4 (06:00→20:16)
[2016-05-25 06:08] LABS: BASOPHILS % (AUTO) 1 % (0-10); EOSINOPHILS # (AUTO) 0.4 10^3/uL (0.0-0.3); EOSINOPHILS % (AUTO) 7 % (0-10); LYMPHOCYTES # (AUTO) 0.4 X 10^3 (1.0-4.0); LYMPHOCYTES % (AUTO) 7 % (12-44); MEAN CORPUSCULAR HEMOGLOBIN 23 PG (25-34); MEAN CORPUSCULAR HGB CONC 33 G/DL (32-36); MEAN CORPUSCULAR VOLUME 70 FL (80-99); MEAN PLATELET VOLUME 10.4 FL (7.4-10.4); MONOCYTES # (AUTO) 0.6 X 10^3 (0.0-1.0); MONOCYTES % (AUTO) 12 % (0-12); NEUTROPHILS # (AUTO) 3.9 X 10^3 (1.8-7.8); NEUTROPHILS % (AUTO) 74 % (42-75); PLATELET COUNT 309 10^3/uL (130-400); RED BLOOD COUNT 4.51 10^6/uL (4.35-5.85); RED CELL DISTRIBUTION WIDTH 29.9 % (10.0-14.5); WHITE BLOOD COUNT 5.3 10^3/uL (4.3-11.0)
[2016-05-25 06:35] LABS: CALCIUM 8.4 MG/DL (8.5-10.1); CREATININE SERUM 1.71 MG/DL (0.60-1.30); POTASSIUM 4.5 MMOL/L (3.6-5.0)
--- NOTE | 2016-05-25 06:39 | Pulmonary Progress Note ---
Subjective Subjective/Events-last exam Pt feels improved. No complications noted. Exam Exam Vital Signs Date Time Temp Pulse Resp B/P Pulse Ox O2 Delivery O2 Flow Rate FiO2 05/25/16 00:25 98.0 90 20 113/76 96 Room Air 05/24/16 20:42 96 05/24/16 20:00 Room Air 05/24/16 16:46 97.7 83 20 117/67 98 Room Air 05/24/16 15:59 97.0 05/24/16 13:10 97.0 05/24/16 08:00 96.1 73 20 134/68 100 Room Air 05/24/16 08:00 Room Air I & O 05/25/16 07:00 Intake Total 3757 ml Output Total 2600 ml Balance 1157 ml General Appearance: No Apparent Distress HEENT: PERRL/EOMI Neck: Non Tender Supple Respiratory: Decreased Breath Sounds (decreased breath sounds left base;) Cardiovascular: Regular Rate, Rhythm Capillary Refill: Less Than 3 Seconds Gastrointestinal: normal bowel sounds non tender distended other (ileostomy bag filled with air and dark colored fluid;) Extremity: Pedal Edema Neurologic/Psychiatric: Alert Oriented x3 Skin: Normal Color Warm/Dry Results Lab Laboratory Tests 05/24/16 05:00 05/25/16 05:50 Assessment/Plan Assessment/Plan Sepsis with pneumonia Levaquin, and cefepime -question of lymphangitic spread - will check CT after pneumonia has resolved -PET from 05/04 shows extensive pulmonary mets with probable bronchial occlusion +BC - probably contamination Metastatic Adenocarcinoma to liver, lung, mediastinum, and peritoneal mets. -pt is undergoing chemotherapy cycle 2 started 05/18/16 Clinical Quality Measures DVT/VTE Risk/Contraindication: Risk Factor Score Per Nursin RFS Level Per Nursing on Admit: 4+=Very High AREN ANTHONY DO May 25, 2016 06:39
[2016-05-25] MEDS ORDERED: LORazepam 1 MG (ATIVAN) TAB PO PRN (07:30)
[2016-05-25 08:05] VITALS: BP 165/77
[2016-05-25] MEDS ORDERED: IOHEXOL 350 MG/ML 100 ML (OMNIPAQUE 350) VIAL IV ONE (09:00)
[2016-05-25] MEDS ORDERED: CATHETER FLUSH 10 ML SYR IV PRN (09:00)
[2016-05-25] MEDS ORDERED: NS 100 ML (IVPB) BAG IV ONE (09:00)
[2016-05-25] MEDS ORDERED: BARIUM SUSPENSION 2.1% (VANILLA SILQ) 450 ML PO ONE (09:00)
--- NOTE | 2016-05-25 09:04 | Progress Note (SOAP) ---
Subjective Subjective/Events-last exam Feeling anxious about having Cat scan. Swelling is improved since IV fluids were discontinued. Objective Exam Vital Signs Date Time Temp Pulse Resp B/P Pulse Ox O2 Delivery O2 Flow Rate FiO2 05/25/16 08:05 98.9 77 18 165/77 89 Room Air 05/25/16 07:28 98 05/25/16 07:26 98 05/25/16 00:25 98.0 90 20 113/76 96 Room Air 05/24/16 20:42 96 05/24/16 20:00 Room Air 05/24/16 16:46 97.7 83 20 117/67 98 Room Air 05/24/16 15:59 97.0 05/24/16 13:10 97.0 I & O 05/25/16 07:00 Intake Total 3757 ml Output Total 2600 ml Balance 1157 ml Capillary Refill : Less Than 3 Seconds General Appearance: Chronically ill Neck: Non Tender Supple Respiratory: Decreased Breath Sounds Cardiovascular: Regular Rate, Rhythm No JVD Gastrointestinal: normal bowel sounds non tender distended Extremity: Pedal Edema Neurologic/Psychiatric: Alert Oriented x3 No Motor/Sensory Deficits 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 as Tested Results Lab Laboratory Tests 05/24/16 05:00 05/25/16 05:50 Laboratory Tests 05/24/16 11:24: Glucometer 163H 05/24/16 16:48: Glucometer 173H 05/24/16 21:09: Glucometer 172H 05/25/16 05:50: Anion Gap 6, BUN/Creatinine Ratio 13, Basophils # (Auto) 0.0, Basophils (%) ( Auto) 1, Blood Urea Nitrogen 22H, Calcium Level 8.4L, Carbon Dioxide Level 15L, Chloride Level 111H, Creatinine 1.71H, Eosinophils # (Auto) 0.4H, Eosinophils (% ) (Auto) 7, Estimat Glomerular Filtration Rate 40, Glucose Level 132H, Hematocrit 31L, Hemoglobin 10.4L, Lymphocytes # (Auto) 0.4L, Lymphocytes (%) ( Auto) 7L, Mean Corpuscular Hemoglobin 23L, Mean Corpuscular Hemoglobin Concent 33, Mean Corpuscular Volume 70L, Mean Platelet Volume 10.4, Monocytes # (Auto) 0.6, Monocytes (%) (Auto) 12, Neutrophils # (Auto) 3.9, Neutrophils (%) (Auto) 74, Platelet Count 309, Potassium Level 4.5, Red Blood Count 4.51, Red Cell Distribution Width 29.9H, Sodium Level 132L, White Blood Count 5.3 Microbiology 05/19/16 Blood Culture - Final, Complete No growth 05/19/16 Urine Culture - Final, Complete NO GROWTH Radiology CAT scan of the chest and abdomen done 05/25/16:IMPRESSION: CHEST: Innumerable pulmonary metastatic parenchymal nodules with a dominant bilateral upper lobe mass are unchanged from the prior study. Mediastinal adenopathy is unchanged and was previously shown metabolically active, presumed metastatic. No thoracic effusion or chest wall pathology. ABDOMEN: Increased omental caking and mild increase in volume of likely malignant ascites. Multifocal hepatic metastases are not convincingly changed. Retroperitoneal periaortic adenopathy is not appreciably changed. Abnormal heterogeneous thickening of the cecum with pericecal adenopathy is unchanged. Assessment/Plan Assessment/Plan Assess & Plan/Chief Complaint 1. Fever, chills, dehydration, hypotension and elevated lactic acid consistent with sepsis-- a. Blood cultures 2, 1 bottle growing coag neg staph, likely a contaminant; b. Continue Levaquin and IV cefepime for total of 7 days. Discontinue vancomycin. 2. Nausea and Vomiting--resolved with zofran; 3. Recurrent Hyponatremia and Hyperkalemia-both are improved; Na and K+ are improved. 4. Metastatic colon cancer with extensive metastasis to liver, peritoneum, lung , and mediastinal lymph nodes a. Cycle number 2 of FOLFOX initiated on 05/18/16 and removed on 05/19/16. 5. Increased abdominal Distension and discomfort-- a. CT scan chest and abdomen were reviewed ; Chest masses are unchanged; Abdomen CT scan shows increased ascites likely related to IV hydration. 6. Pneumonia and bilateral pulmonary metastases, largest burden in left lung. a. Pulmonary Consult noted and is appreciated; 7. Type II Diabetes with CKD-- Monitor BUN/Cr and use sliding scale for glucose management; 8. Hypertension 9. DVT Prophylaxis--Receiving Lovenox; Diagnosis/Problems: Clinical Quality Measures DVT/VTE Risk/Contraindication: Risk Factor Score Per Nursin RFS Level Per Nursing on Admit: 4+=Very High MEG MOISE MD May 25, 2016 09:03
[2016-05-25] MEDS: FAMOTIDINE 20MG/2ML IV (PEPCID) IVP SCH (09:08)
--- NOTE | 2016-05-25 11:12 | Diagnostic Imaging Report ---
PROCEDURE: CT chest with contrast, CT abdomen with and without contrast. TECHNIQUE: Precontrast acquisitions were acquired through the abdomen. Multiple contiguous axial images were obtained through the chest and abdomen after administration of intravenous contrast. INDICATION: Abdominal distention with pain, history of colon cancer. COMPARISON: Correlation is limited to a CT fusion PET dated 05/04/2016. FINDINGS: CHEST: A masslike zone of soft tissue density consolidation in the left upper lobe is unchanged measuring 9.1 x 6.5 cm. The largest mass in the right lung is in the upper lobe anteriorly measuring 3.7 x 2.5 cm. In addition, there are innumerable subcentimeter soft tissue nodules scattered diffusely throughout all 5 lobes. Thoracic lymphadenopathy is unchanged. The largest right paratracheal node shows central calcification and measures a maximal AP dimension of 3.4 cm. AP window nodes are present, the largest of which has a short axis transverse dimension of 1.8 cm which is unchanged. Smaller subcarinal nodes are also unchanged. There is no suspicious soft tissue or osseous chest wall disease. The thoracic inlet and axilla appear unremarkable. ABDOMEN: Presumed metastatic omental cake is a redemonstrated finding and slightly increased in density and conspicuity from the prior CT. There are multiple low density but solid liver masses redemonstrated which are not convincingly changed from the prior study. The largest of these in the right hepatic lobe posterior sector near the dome superiorly measures a long axis of 3.5 cm. Abdominal ascites, presumed malignant, shows a mild increase. The nonfocal spleen remains normal in size. The periaortic retroperitoneal lymphadenopathy has not appreciably changed. The largest mass anterior to the aorta at the level of the lower pole of the kidneys measures 3.7 x 3.3 cm. Heterogeneous abnormal soft tissue thickening and enhancement of the cecum have not grossly changed from the prior nonenhanced study with adjacent pericecal right lower quadrant mesenteric adenopathy with nodes at that level measuring an unchanged maximal 2.1 cm. There is no evidence for a bowel obstruction. The adrenals are negative. The unobstructed kidneys are within normal limits. No suspicious osseous lesion. IMPRESSION: CHEST: Innumerable pulmonary metastatic parenchymal nodules with a dominant bilateral upper lobe mass are unchanged from the prior study. Mediastinal adenopathy is unchanged and was previously shown metabolically active, presumed metastatic. No thoracic effusion or chest wall pathology. ABDOMEN: Increased omental caking and mild increase in volume of likely malignant ascites. Multifocal hepatic metastases are not convincingly changed. Retroperitoneal periaortic adenopathy is not appreciably changed. Abnormal heterogeneous thickening of the cecum with pericecal adenopathy is unchanged. Dictated by: Dictated on workstation # [id number]
[2016-05-25 12:00] VITALS: BP 165/77
[2016-05-25] MEDS: ENOXAPARIN 40 MG/0.4 ML (LOVENOX) SYR SC SCH (13:55)
[2016-05-25 15:33] VITALS: BP 175/81
[2016-05-26 00:34] VITALS: BP 110/70
[2016-05-26] MEDS ORDERED: CEFEPIME 2 GM/NS 50 ML IVPB IV SCH ×2 (05:00)
[2016-05-26] MEDS: METOCLOPRAMIDE 5 MG (REGLAN) TAB PO SCH (05:26)
[2016-05-26] MEDS: METOCLOPRAMIDE INJ 10 MG/2 ML (REGLAN) IVP SCH ×2 (05:26→11:00)
[2016-05-26 05:37] LABS: BASOPHILS % (AUTO) 1 % (0-10); EOSINOPHILS # (AUTO) 0.3 10^3/uL (0.0-0.3); EOSINOPHILS % (AUTO) 5 % (0-10); LYMPHOCYTES # (AUTO) 0.5 X 10^3 (1.0-4.0); LYMPHOCYTES % (AUTO) 8 % (12-44); MEAN CORPUSCULAR HEMOGLOBIN 23 PG (25-34); MEAN CORPUSCULAR HGB CONC 34 G/DL (32-36); MEAN CORPUSCULAR VOLUME 69 FL (80-99); MEAN PLATELET VOLUME 9.2 FL (7.4-10.4); MONOCYTES # (AUTO) 0.8 X 10^3 (0.0-1.0); MONOCYTES % (AUTO) 14 % (0-12); NEUTROPHILS # (AUTO) 4.4 X 10^3 (1.8-7.8); NEUTROPHILS % (AUTO) 73 % (42-75); PLATELET COUNT 311 10^3/uL (130-400); RED BLOOD COUNT 4.59 10^6/uL (4.35-5.85); RED CELL DISTRIBUTION WIDTH 30.2 % (10.0-14.5)
[2016-05-26 05:58] LABS: CALCIUM 8.7 MG/DL (8.5-10.1); CREATININE SERUM 1.92 MG/DL (0.60-1.30); POTASSIUM 4.5 MMOL/L (3.6-5.0)
[2016-05-26] MEDS: inSUlin (REGULAR) HUMAN 1 UNIT/0.01 ML (CHARGE PER UNIT) SC SCH ×2 (06:00→10:41)
[2016-05-26 08:10] VITALS: BP 135/71
[2016-05-26] MEDS ORDERED: FAMOTIDINE 20MG/2ML IV (PEPCID) IVP SCH (09:00)
[2016-05-26] MEDS ORDERED: HEParin (CENTRAL IV FLUSH) 500 UNIT/5 ML SYR ONE (11:00)
[2016-05-26] MEDS ORDERED: LEVOFLOXACIN 750 MG/150 ML D5W (PRE-MIX) IV SCH (11:00)
[2016-05-26 11:06] VITALS: BP 125/78
--- NOTE | 2016-05-26 13:36 | Discharge Summary ---
Diagnosis/Chief Complaint Date of Admission May 19, 2016 at 03:40 Date of Discharge May 26, 2016 at 11:45 Discharge Date: May 26, 2016 Discharge Time: 1115 Admission Diagnosis Admission Diagnosis 1. Fever, chills, dehydration, hypotension and elevated lactic acid consistent with sepsis-- a. Blood cultures 2, urine culture obtained and are pending; and sputum culture has been requested b. Fluid replacement being given c. patient is receiving IV antibiotics, IV Levaquin, cefepime, and vancomycin. 2. Nausea and Vomiting--resolved with zofran; nondistended abdomen and denies abdominal pain; will obtain Gen Surg consult if recurrs; 3. Recurrent Hyponatremia and Hyperkalemia 4. Metastatic colon cancer with extensive metastasis to liver, peritoneum, lung , and mediastinal lymph nodes a. Cycle number 2 of FOLFOX initiated on 05/18/16 and is ongoing. 5. Abnormal chest x-ray suggestive of pneumonia versus lymphangitic spread-- clinically improved with IV antibiotics consistent with component of pneumonia but does not exclude presence of metastatic disease/lymphangitic spread; a. Pulmonary Consult has been requested. 6. Type II Diabetes with CKD-- Monitor BUN/Cr and use sliding scale for glucose management; 7. Hypertension 8. DVT Prophylaxis a. Monitor counts because of recent chemotherapy and monitor renal function ; b. Give lower dose of Lovenox while awaiting repeat BUN/CR Discharge Diagnosis 1. Fever, chills, dehydration, hypotension and elevated lactic acid consistent with sepsis-- Levaquin and IV cefepime given for total of 7 days. Vancomycin given for 5 days. 2. Nausea and Vomiting--resolved with zofran; 3. Recurrent Hyponatremia and Hyperkalemia-both are improved; Na and K+ are improved. 4. Metastatic colon cancer with extensive metastasis to liver, peritoneum, lung , and mediastinal lymph nodes a. Cycle number 2 of FOLFOX initiated on 05/18/16 and removed on 05/19/16. 5. Increased abdominal Distension and discomfort-- a. CT scan chest and abdomen were reviewed ; Chest masses are unchanged; Abdomen CT scan shows increased ascites likely related to IV fluids received during this admission. 6. Pneumonia and bilateral pulmonary metastases, largest burden in left lung. a. Pulmonary Consult noted and is appreciated; 7. Type II Diabetes with CKD-- Monitor BUN/Cr and use sliding scale for glucose management; 8. Hypertension 9. DVT Prophylaxis--Receiving Lovenox; Reason Hospital Visit Jhonatan Walton is a 70-year-old male with known history of metastatic colon cancer with extensive liver metastases and metastases to peritoneum lung and mediastinal lymph nodes who was due for his second cycle of FOLFOX on . Patient was recently hospitalized recently with symptomatic hyponatremia and hyperkalemia which improved with medical management. At the time of the clinic visit he felt well stating he had regained his appetite and denied having complaints of diarrhea, mouth sores, increased shortness of breath, cough , and denied having fever chills or night sweats. At about 11 p.m. patient began to have chills associated with profound weakness. He was brought in to the hospital by his family who called EMS when patient felt so weak that he fell to the floor. In the emergency room temp was found to be elevated to 102. Lactic acid was also found elevated and chest x-ray showed bilateral infiltrates vs lymphangitic spread. In the emergency room he was started on vancomycin, levofloxacin and cefepime. He feels much better today and fever has currently resolved. Past medical history is significant for: 1. Metastatic adenocarcinoma of colon with metastases to the liver, lung, mediastinal and abdominal lymph nodes and extensive peritoneal metastases. 2. 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 3. Iron deficiency anemia-administer injected for 750 mg 2 doses since patient has malabsorption/ intolerance of oral iron. 4. Hyponatremia 5. Hyperkalemia has resolved 6. Comorbidities of Type II diabetes, Obesity, and Hypertension. Discharge Summary Discharge Physical Examination Allergies: Coded Allergies: No Known Drug Allergies (Unverified , 04/28/16) Vitals & I&Os Vital Signs Date Time Temp Pulse Resp B/P Pulse Ox O2 Delivery O2 Flow Rate FiO2 05/26/16 11:06 78 20 125/78 05/26/16 09:18 96 05/26/16 08:10 98.9 Room Air General Appearance: Alert, Oriented X3, Cooperative HEENT: PERRLA Respiratory: Clear to Auscultation Cardiovascular: Regular Rate, Normal S1, Normal S2 Abdominal: Normal Bowel Sounds, No Tenderness, Other (Ileostomy bag in place;) Extremities: Other (trace ankle edema;) Neuro: Normal Gait, Normal Speech, Cranial Nerves 3-12 NL Hospital Course Patient received IV antibiotics consisting of IV vancomycin, Levaquin, and cefepime. Fever and lactic acid which were present on admission resolved. IV fluids given since sepsis and significant dehydration were present on admission. Patient continued to improve. He developed some abdominal distention. CAT scan was done and showed only a modestly increase in ascites. Persistent masses were seen in lung, liver and omental caking. He was clinically stable for discharge on 05/26/16. He will be seen in the cancer clinic on Tuesday05/31/16. He was instructed to return to the emergency room if he develops fever and/or persistent, nausea and vomiting. Pending Labs Laboratory Tests 05/26/16 05:30: Anion Gap 7, BUN/Creatinine Ratio 12, Basophils # (Auto) 0.0, Basophils (%) ( Auto) 1, Blood Urea Nitrogen 23, Calcium Level 8.7, Carbon Dioxide Level 15, Chloride Level 109, Creatinine 1.92, Eosinophils # (Auto) 0.3, Eosinophils (%) ( Auto) 5, Estimat Glomerular Filtration Rate 35, Glucose Level 156, Hematocrit 32 , Hemoglobin 10.7, Lymphocytes # (Auto) 0.5, Lymphocytes (%) (Auto) 8, Mean Corpuscular Hemoglobin 23, Mean Corpuscular Hemoglobin Concent 34, Mean Corpuscular Volume 69, Mean Platelet Volume 9.2, Monocytes # (Auto) 0.8, Monocytes (%) (Auto) 14, Neutrophils # (Auto) 4.4, Neutrophils (%) (Auto) 73, Platelet Count 311, Potassium Level 4.5, Red Blood Count 4.59, Red Cell Distribution Width 30.2, Sodium Level 131, White Blood Count 6.0 05/26/16 10:35: Glucometer 147 Discharge Instructions to patient/family Please see electonic discharge instructions given to patient. Discharge Medications Reviewed and agree with Discharge Medication list on patient's Discharge Instruction sheet Clinical Quality Measures DVT/VTE Risk/Contraindication: Risk Factor Score Per Nursin RFS Level Per Nursing on Admit: 4+=Very High MEG MOISE MD May 26, 2016 13:36
== END 2016-05-26 11:45 | disposition home health service (06) | DRG 871 ==
LOC: EDUNIT# 01:56 → ER 01:57 → 4TH 03:40
PROVIDERS: ADMIT Internal Medicine Hematology & Oncology; ATTEND Internal Medicine Hematology & Oncology
DX: A41.9 Sepsis, unspecified organism (principal); J18.9 Pneumonia, unspecified organism; N39.0 Urinary tract infection, site not specified; E87.1 Hypo-osmolality and hyponatremia; E86.0 Dehydration; C18.2 Malignant neoplasm of ascending colon; C78.7 Secondary malignant neoplasm of liver and intrahepatic bile duct; C77.2 Secondary and unspecified malignant neoplasm of intra-abdominal lymph nodes; C78.6 Secondary malignant neoplasm of retroperitoneum and peritoneum; C78.01 Secondary malignant neoplasm of right lung; C78.02 Secondary malignant neoplasm of left lung; I12.9 Hypertensive chronic kidney disease with stage 1 through stage 4 chronic kidney disease, or unspecified chronic kidney disease; N18.9 Chronic kidney disease, unspecified; E11.22 Type 2 diabetes mellitus with diabetic chronic kidney disease; K21.9 Gastro-esophageal reflux disease without esophagitis; E87.5 Hyperkalemia; D50.9 Iron deficiency anemia, unspecified; Z93.2 Ileostomy status; R11.2 Nausea with vomiting, unspecified; R14.0 Abdominal distension (gaseous)
CPT/HCPCS: 36415; 70450; 71010; 71020; 71260; 72170; 73552; 74170; 80048; 80053; 80202; 81000; 82150; 82378; 82962; 83605; 83690; 83735; 84484; 85025; 85610; 85730; 87040; 87088; 87186; 93005; 93041; 94640; 94760; 96361; 96374; 96375

== ENCOUNTER 2016-05-31 14:54 | Inpatient (IN) | payer OTHER, MEDICARE ==
[~2016-05-31] VITALS: Ht 172.7 cm; Wt 105.4 kg
[2016-05-31] VITALS (9 sets, daily range): BP systolic 109–147; BP diastolic 62–104
[~2016-05-31 14:54] MED LIST changes: +METO5TAB75 PO; +PANT40TA3; +ZOLP5TAB PO
--- OUTSIDE RECORDS SUMMARY | 2016-05-31 16:04 | XMS REPORT | Continuity of Care Document ---
Author Author [facility] Organization [facility] Address Unknown Phone Unavailable Support Name Relationship Address Phone VIELKA MENDOZA MD Caregiver [address] [place] [address] [address] Insurance Providers Payer Name Policy Number Subscriber Name Relationship [employer] [id number] Jeni Campoverde 19 Self / Same As Patient Advance Directives Directive Response Recorded Date/Time Advance Directives No 03/31/16 11:06am Health Care Power of Mechanical Operator No 03/31/16 11:06am Organ Donor No [...] - 99.5) 03/29/2016 5:18pm Temperature (Calculated Celsius) 36.38407 degrees C (36.4 - 37.5) 03/29/2016 4:00pm [...] 9.00 inches 03/31/2016 11:05am Height (Calculated Centimeters) 175.966942 cm 03/31/2016 11:05am Weight (Pounds) 236 pounds 03/31/2016 11:05am Weight (Ounces) 0.0 oz 03/31/2016 11:05am Weight (Calculated Grams) 944628.80 gm 03/31/2016 11:05am Weight (Calculated Kilograms) 107.966747 kilograms 03/31/2016 11:05am Calculated BMI 34.9 03/31/2016 11:05am Results Pending Laboratory Results Test Name Collection Date/Time Procedures Procedure Status Date Provider(s) Tracing only of electrocardiogram Completed 03/27/16 VIELKA MENDOZA MD Encounters Encounter Location Arrival/Admit Date Discharge/Depart Date Attending Provider Departed Clinic [facility] 03/31/16 10:00am 03/31/16 11: 15am VIELKA MENDOZA MD Discharged Inpatient [facility] 03/26/16 11:56pm 6:05pm VIELKA MENDOZA MD Departed Clinic [facility] 03/22/16 1:18pm 03/22/16 3: 00pm AREN ANTHONY DO
[2016-05-31] MEDS ORDERED: ONDANSETRON 4 MG/2 ML (SDV) Z0FRAN IV PRN (16:30)
[2016-05-31] MEDS ORDERED: CATHETER FLUSH 10 ML SYR IV PRN (17:00)
[2016-05-31] MEDS ORDERED: FLU TRIvalent (5 YOA+) 2016-17 (AFLURIA) 0.5 ML IM ONE (17:30)
[2016-05-31] MEDS ORDERED: METOCLOPRAMIDE 10 MG (REGLAN) TAB ONE (17:31)
--- NOTE | 2016-05-31 17:40 | History & Physicial ---
History of Present Illness History of Present Illness Reason for visit/HPI Jhonatan Walton is a 70-year-old male who is currently admitted with complaints of severe weakness, nausea and vomiting, and increased lower extremity swelling. He is admitted from the cancer center where he presented with these complaints accompanied by his , son and daughter. He was due for cycle number 3 of FOLFOX today. However when patient's symptoms along with creatinine elevation was noted patient was referred for admission. We have had a discussion regarding goals of management. Patient was admitted same day as cycle 2 of FOLFOX and was admitted prior to cycle number 1. Cat scans and CEA show worsening tumor load and patient is also developing worsening organ dysfunction. He states he does not want to be resuscitated. We have discussed hospice management and he is agreeable to this. Date of Admission May 31, 2016 at 15:15 I consulted on this patient on 05/31/16 17:40 Attending Physician Meg Miose MD Admitting Physician Lee Mariano DO Consult Allergies and Home Medications Allergies Coded Allergies: No Known Drug Allergies (Unverified , 04/28/16) Home Medications Cholecalciferol (Vitamin D3) 2,000 Unit Tablet 2,000 UNIT PO DAILY (Reported) Famotidine 20 Mg Tablet 20 MG PO BID (Reported) Metoclopramide HCl 5 Mg Tablet 5 MG PO AC (Reported) Ondansetron HCl 8 Mg Tablet 8 MG PO TID PRN PRN NAUSEA/VOMITING (Reported) Zolpidem Tartrate 5 Mg Tablet 5 MG PO HS (Reported) Past Tiywehk-Thlljd-Shzmpr Hx Patient Social History Marrital Status: Alcohol Use: Denies Use Recreational Drug Use: No Smoking Status: Never a Smoker Physical Abuse Screen: No Sexual Abuse: No Recent Foreign Travel: No Contact w/other who traveled: No Recent Hopitalizations: No Recent Infectious Disease Expo: No Immunizations Up To Date Tetanus Booster (TDap): Unknown Seasonal Allergies Seasonal Allergies: No Surgeries HX Surgeries: Yes (PILONIDAL CYST; COLON RESECTION WITH ILEOSTOMY) Surgeries: Abdominal, Appendectomy Respiratory Hx Respiratory Disorders: Yes (MEDIASTINAL LYMPHADENOPATHY) Cardiovascular Hx Cardiovascular Disorders: Yes Cardiac Disorders: Hypertension Neurological Hx Neurological Disorders: No Reproductive System Hx Reproductive Disorders: No Sexually Transmitted Disease: No HIV/AIDS: No Genitourinary Hx Genitourinary Disorders: No Gastrointestinal Hx Gastrointestinal Disorders: Yes (METASTATIC COLON CANCER) Gastrointestinal Disorders: Gastroesophageal Reflux, Obstructive Bowel Musculoskeletal Hx Musculoskeletal Disorders: No Endocrine Hx Endocrine Disorders: Yes Endocrine Disorders: Diabetes, Non-Insulin dep HEENT HX ENT Disorders: Yes (GLASSES) Loss of Vision: Bilateral Hearing Impairment: Denies 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) Cancer: Liver, Lung, Colon Psychosocial Hx Psychiatric Problems: No Integumentary HX Skin/Integumentary Disorder: No Blood Transfusions Hx Blood Disorders: Yes (ANEMIA) Adverse Reaction to a Blood Tr: No Family Medical History Significant Family History: CAD Under 55 Years Old Family Hx: Hypertension 19 FATHER Myocardial infarction 19 FATHER Constitutional: malaise weakness weight gain EENTM: nose congestion see HPI Respiratory: cough phlegm short of breath Gastrointestinal: abdominal pain nausea vomiting Psychiatric/Neurological: Anxiety Physical Exam Vital Signs Vital Sign - Last 12Hours 05/31/16 15:15 Temp 96.9 Pulse 97 Resp 23 B/P 144/91 Pulse Ox 97 O2 Delivery Room Air Capillary Refill : General Appearance: Chronically ill HEENT: PERRL/EOMI Neck: Supple Respiratory: Decreased Breath Sounds Cardiovascular: Regular Rate, Rhythm No JVD Gastrointestinal: Distended Other (ileostomy in place with brown liquid stool in bag with a few solid particles mixed) Rectal: Deferred Extremity: No Calf Tenderness Pedal Edema Neurologic/Psychiatric: Oriented x3 director of counterintelligence II-XII Norm as Tested Assessment/Plan Assessment and Plan 1 Abdominal Distension, nausea and vomiting--Consult with General Surgery; palliative management discussed with family; 2. Dyspnea and persistent cough-Patient has no leukocytosis or fever; reviewed Chest xray and I favor worsening metastatic disease over worsening pneumonia; a. We will consult Dr. Leon for evaluation and hold off on antibiotic therapy for now; 3. Metastatic colon cancer with extensive liver metastasis as well as widespread lung metastases, abdominal lymph nodes and omental and small bowel metastases; a. Chemotherapy has been discontinued because of poor tolerance and clinical deterioration; 4. Acute on chronic renal failure--careful IV hydration and monitor intake and output; 5. Palliative care/ Hospice consultation 7. Anxiety-administer anxiolytics 8. DVT prophylaxis-use SCDs as tolerated; Lovenox is poor choice with worsening renal function; Clinical Quality Measures DVT/VTE Risk/Contraindication: Risk Factor Score Per Nursin RFS Level Per Nursing on Admit: 4+=Very High MEG MOISE MD May 31, 2016 17:40
[2016-05-31] MEDS ORDERED: METOCLOPRAMIDE 5 MG (REGLAN) TAB PO SCH (17:45)
--- NOTE | 2016-05-31 18:00 | Diagnostic Imaging Report ---
EXAM: Postoperative radiograph of the chest. INDICATION: Dyspnea. Colon cancer. COMPARISON: 05/24/2016. FINDINGS: There are bilateral innumerable pulmonary nodules with a dominant left lung basilar consolidation or mass. When compared to 05/24/2016 slightly increased infiltrates along the lateral mid right lung is seen. The heart size is normal. There is a no effusion or pneumothorax Infusion port with the tip at the SVC level is seen. IMPRESSION: Slightly increased patchy infiltrates in the lateral mid right lung. Stable innumerable pulmonary nodules and large left lung mass or consolidation seen. Dictated by: Dictated on workstation # [id number]
[2016-05-31] MEDS: NS IV 1000 ML 1,000 ML IV SCH (18:02)
[2016-05-31] MEDS: ALPRAZolam 1 MG (XANAX) TAB PO PRN (18:44)
[2016-05-31] MEDS ORDERED: NON-FORMULARY MEDICATION 1 EA EA (Ondansetron HCl 8 MG) PO PRN (20:00)
[2016-05-31] MEDS ORDERED: ONDANSETRON 8 MG (ZOFRAN) ORAL DISSOLVE TAB PO PRN (20:00)
[2016-05-31] MEDS: ZOLPIDEM 5 MG (AMBIEN) TAB PO SCH (20:34)
[2016-05-31] MEDS: FAMOTIDINE 20MG/2ML IV (PEPCID) IV SCH (20:38)
[2016-05-31 20:59] LABS: BASOPHILS # (AUTO) 0.1 10^3/uL (0.0-0.1); BASOPHILS % (AUTO) 1 % (0-10); EOSINOPHILS # (AUTO) 0.3 10^3/uL (0.0-0.3); EOSINOPHILS % (AUTO) 5 % (0-10); LYMPHOCYTES # (AUTO) 0.5 X 10^3 (1.0-4.0); LYMPHOCYTES % (AUTO) 7 % (12-44); MEAN CORPUSCULAR HEMOGLOBIN 24 PG (25-34); MEAN CORPUSCULAR HGB CONC 34 G/DL (32-36); MEAN CORPUSCULAR VOLUME 70 FL (80-99); MEAN PLATELET VOLUME 10.3 FL (7.4-10.4); MONOCYTES # (AUTO) 1.1 X 10^3 (0.0-1.0); MONOCYTES % (AUTO) 16 % (0-12); NEUTROPHILS # (AUTO) 4.7 X 10^3 (1.8-7.8); NEUTROPHILS % (AUTO) 71 % (42-75); PLATELET COUNT 291 10^3/uL (130-400); RED BLOOD COUNT 4.54 10^6/uL (4.35-5.85); WHITE BLOOD COUNT 6.6 10^3/uL (4.3-11.0)
[2016-05-31] MEDS ORDERED: ALPRAZolam 1 MG (XANAX) TAB PO SCH (21:00)
[2016-05-31] MEDS ORDERED: NON-FORMULARY MEDICATION 1 EA EA (Zolpidem Tartrate (Ambien) 5 MG) PO SCH (21:00)
[2016-05-31 21:05] LABS: CALCIUM 9.4 MG/DL (8.5-10.1); CREATININE SERUM 3.21 MG/DL (0.60-1.30); POTASSIUM 4.6 MMOL/L (3.6-5.0)
[2016-06-01] VITALS (11 sets, daily range): BP systolic 119–149; BP diastolic 75–111
[2016-06-01 04:41] LABS: BASOPHILS # (AUTO) 0.1 10^3/uL (0.0-0.1); BASOPHILS % (AUTO) 1 % (0-10); EOSINOPHILS # (AUTO) 0.4 10^3/uL (0.0-0.3); EOSINOPHILS % (AUTO) 7 % (0-10); LYMPHOCYTES # (AUTO) 0.5 X 10^3 (1.0-4.0); LYMPHOCYTES % (AUTO) 9 % (12-44); MEAN CORPUSCULAR HEMOGLOBIN 24 PG (25-34); MEAN CORPUSCULAR HGB CONC 34 G/DL (32-36); MEAN CORPUSCULAR VOLUME 70 FL (80-99); MEAN PLATELET VOLUME 9.9 FL (7.4-10.4); MONOCYTES % (AUTO) 18 % (0-12); NEUTROPHILS # (AUTO) 3.8 X 10^3 (1.8-7.8); NEUTROPHILS % (AUTO) 65 % (42-75); PLATELET COUNT 284 10^3/uL (130-400); RED BLOOD COUNT 4.46 10^6/uL (4.35-5.85); RED CELL DISTRIBUTION WIDTH 31.1 % (10.0-14.5); WHITE BLOOD COUNT 5.7 10^3/uL (4.3-11.0)
[2016-06-01 05:07] LABS: ALBUMIN 2.8 G/DL (3.2-4.5); BILIRUBIN,TOTAL 0.3 MG/DL (0.1-1.0); CALCIUM 9.5 MG/DL (8.5-10.1); CREATININE SERUM 2.99 MG/DL (0.60-1.30); POTASSIUM 4.6 MMOL/L (3.6-5.0); TOTAL PROTEIN 5.8 G/DL (6.4-8.2)
[2016-06-01] MEDS: METOCLOPRAMIDE 5 MG (REGLAN) TAB PO SCH ×3 (05:53→16:53)
[2016-06-01] MEDS: NS IV 1000 ML 1,000 ML IV SCH ×2 (05:54→19:01)
--- NOTE | 2016-06-01 09:02 | Progress Note-Standard ---
Standard Progress Note Progress Notes/Assess & Plan Progress/Assessment & Plan 06/01/16: Patient with metastatic colon cancer and ascites, recent left lower lobar pneumonia. On exam, no obstructive signs. Due to the minimal nature os ascites and in anticipation of reaccumulation, it's reasonable to avoid paracentesis. Final Diagnosis Metastatic colon cancer VIELKA MENDOZA MD Jun 01, 2016 09:02
--- NOTE | 2016-06-01 09:09 | Progress Note (SOAP) ---
Subjective Subjective/Events-last exam Feeling better and has more urine ouput today. Objective Exam Vital Signs Date Time Temp Pulse Resp B/P Pulse Ox O2 Delivery O2 Flow Rate FiO2 06/01/16 08:30 97.0 89 11 136/85 98 Room Air 06/01/16 07:00 85 06/01/16 06:00 86 21 129/84 100 Room Air 06/01/16 05:00 84 13 134/87 99 Room Air 06/01/16 04:00 100 06/01/16 04:00 96.0 90 12 149/90 100 Room Air 06/01/16 03:00 80 20 143/111 97 Room Air 06/01/16 02:00 86 20 133/75 97 Room Air 06/01/16 01:00 90 06/01/16 01:00 90 16 140/91 97 Room Air 06/01/16 00:00 85 24 131/87 95 Room Air 06/01/16 00:00 96.9 06/01/16 00:00 96 05/31/16 23:00 85 21 132/84 96 Room Air 05/31/16 22:00 92 22 109/62 95 Room Air 05/31/16 21:00 99 20 132/77 100 Room Air 05/31/16 20:00 104 11 142/90 96 Room Air 05/31/16 20:00 96 05/31/16 19:00 96.3 98 24 147/102 97 Room Air 05/31/16 19:00 101 05/31/16 18:00 102 24 136/79 97 Room Air 05/31/16 17:00 90 24 124/104 97 Room Air 05/31/16 16:00 97 05/31/16 16:00 96.7 92 20 136/81 98 Room Air 05/31/16 15:31 95 05/31/16 15:15 96.9 97 23 144/91 97 Room Air I & O 06/01/16 07:00 Intake Total 1660 ml Output Total 1100 ml Balance 560 ml Capillary Refill : General Appearance: Chronically ill Obese HEENT: PERRL/EOMI Neck: Full Range of Motion Non Tender Supple Respiratory: Decreased Breath Sounds (decreased breath sounds at bases with few bibasilar crackles that improve with cough or deep breath) Cardiovascular: Regular Rate, Rhythm No Gallop No JVD Gastrointestinal: normal bowel sounds non tender other (ileostomy bag with dark liquid stool in stool.) Extremity: No Calf Tenderness Neurologic/Psychiatric: Alert Oriented x3 No Motor/Sensory Deficits 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 Norm as Tested Results Lab Laboratory Tests 05/31/16 20:30 06/01/16 04:25 Laboratory Tests 05/31/16 20:30: Anion Gap 10, BUN/Creatinine Ratio 22, Basophils # (Auto) 0.1, Basophils (%) ( Auto) 1, Blood Urea Nitrogen 72H, Calcium Level 9.4, Carbon Dioxide Level 14L, Chloride Level 103, Creatinine 3.21H, Eosinophils # (Auto) 0.3, Eosinophils (%) (Auto) 5, Estimat Glomerular Filtration Rate 19, Glucose Level 213H, Hematocrit 32L, Hemoglobin 10.7L, Lymphocytes # (Auto) 0.5L, Lymphocytes (%) (Auto) 7L, Mean Corpuscular Hemoglobin 24L, Mean Corpuscular Hemoglobin Concent 34, Mean Corpuscular Volume 70L, Mean Platelet Volume 10.3, Monocytes # (Auto) 1.1H, Monocytes (%) (Auto) 16H, Neutrophils # (Auto) 4.7, Neutrophils (%) (Auto) 71, Platelet Count 291, Potassium Level 4.6, Red Blood Count 4.54, Red Cell Distribution Width 31.0H, Sodium Level 127L, White Blood Count 6.6 06/01/16 04:25: Anion Gap 10, BUN/Creatinine Ratio 24, Basophils # (Auto) 0.1, Basophils (%) ( Auto) 1, Blood Urea Nitrogen 71H, Calcium Level 9.5, Carbon Dioxide Level 13L, Chloride Level 105, Creatinine 2.99H, Eosinophils # (Auto) 0.4H, Eosinophils (% ) (Auto) 7, Estimat Glomerular Filtration Rate 21, Glucose Level 134H, Hematocrit 31L, Hemoglobin 10.6L, Lymphocytes # (Auto) 0.5L, Lymphocytes (%) ( Auto) 9L, Mean Corpuscular Hemoglobin 24L, Mean Corpuscular Hemoglobin Concent 34, Mean Corpuscular Volume 70L, Mean Platelet Volume 9.9, Monocytes # (Auto) 1.0, Monocytes (%) (Auto) 18H, Neutrophils # (Auto) 3.8, Neutrophils (%) (Auto) 65, Platelet Count 284, Potassium Level 4.6, Red Blood Count 4.46, Red Cell Distribution Width 31.1H, Sodium Level 128L, White Blood Count 5.7, Alanine Aminotransferase (ALT/SGPT) 10, Albumin 2.8L, Alkaline Phosphatase 101, Aspartate Amino Transf (AST/SGOT) 16, Total Bilirubin 0.3, Total Protein 5.8L Assessment/Plan Assessment/Plan Assess & Plan/Chief Complaint 1 Abdominal Distension, nausea and vomiting--nausea, vomiting, and abdominal distention are improved today with conservative measures. Dr. Escoto's assessment noted and appreciated. 2. Dyspnea and persistent cough-Patient has no leukocytosis or fever; favor worsening metastatic disease over worsening pneumonia after review of chest x- ray. CEA elevated 484; a. We will consult Dr. Leon for evaluation and hold off on antibiotic therapy for now; 3. Metastatic colon cancer with extensive liver metastasis as well as widespread lung metastases, abdominal lymph nodes and omental and small bowel metastases; a. Chemotherapy has been discontinued because of poor tolerance and clinical deterioration; 4. Acute on chronic renal failure--careful IV hydration and monitor intake and output; 5. Palliative care/ Hospice consultation 7. Anxiety-administer anxiolytics 8. DVT prophylaxis-use SCDs as tolerated; Lovenox is poor choice with worsening renal function; Diagnosis/Problems: Clinical Quality Measures DVT/VTE Risk/Contraindication: Risk Factor Score Per Nursin RFS Level Per Nursing on Admit: 4+=Very High MEG MOISE MD Jun 01, 2016 09:09
[2016-06-01] MEDS: ZOLPIDEM 5 MG (AMBIEN) TAB PO SCH (20:38)
[2016-06-01] MEDS: ALPRAZolam 1 MG (XANAX) TAB PO PRN (20:50)
[2016-06-01] MEDS: FAMOTIDINE 20MG/2ML IV (PEPCID) IV SCH (20:50)
[2016-06-02 02:00] VITALS: BP 146/82
[2016-06-02 04:30] VITALS: BP 146/74
[2016-06-02 05:19] LABS: BASOPHILS % (AUTO) 1 % (0-10); EOSINOPHILS # (AUTO) 0.3 10^3/uL (0.0-0.3); EOSINOPHILS % (AUTO) 7 % (0-10); LYMPHOCYTES # (AUTO) 0.5 X 10^3 (1.0-4.0); LYMPHOCYTES % (AUTO) 10 % (12-44); MEAN CORPUSCULAR HEMOGLOBIN 24 PG (25-34); MEAN CORPUSCULAR HGB CONC 33 G/DL (32-36); MEAN CORPUSCULAR VOLUME 71 FL (80-99); MEAN PLATELET VOLUME 10.2 FL (7.4-10.4); MONOCYTES % (AUTO) 21 % (0-12); NEUTROPHILS # (AUTO) 2.9 X 10^3 (1.8-7.8); NEUTROPHILS % (AUTO) 61 % (42-75); PLATELET COUNT 291 10^3/uL (130-400); RED BLOOD COUNT 4.43 10^6/uL (4.35-5.85); RED CELL DISTRIBUTION WIDTH 31.5 % (10.0-14.5); WHITE BLOOD COUNT 4.7 10^3/uL (4.3-11.0)
[2016-06-02 05:37] LABS: CALCIUM 8.9 MG/DL (8.5-10.1); CREATININE SERUM 2.67 MG/DL (0.60-1.30); POTASSIUM 4.7 MMOL/L (3.6-5.0)
[2016-06-02] MEDS: METOCLOPRAMIDE 5 MG (REGLAN) TAB PO SCH ×3 (06:00→16:19)
[2016-06-02 07:55] VITALS: BP 134/79
[2016-06-02] MEDS: NS IV 1000 ML 1,000 ML IV SCH ×2 (08:29→21:15)
[2016-06-02 11:11] VITALS: BP 126/89
--- NOTE | 2016-06-02 12:00 | Progress Note (SOAP) ---
Subjective Subjective/Events-last exam Feeling better but still reports cough and weakness; Objective Exam Vital Signs Date Time Temp Pulse Resp B/P Pulse Ox O2 Delivery O2 Flow Rate FiO2 06/02/16 11:11 97.4 85 18 126/89 99 Room Air 06/02/16 07:55 97.2 88 16 134/79 98 Room Air 06/02/16 04:30 97.5 90 18 146/74 100 Room Air 06/02/16 02:00 96.6 92 18 146/82 99 Room Air 06/01/16 20:00 99 06/01/16 20:00 97.3 100 18 119/78 99 Room Air 06/01/16 15:50 96.6 88 12 135/93 98 Room Air 06/01/16 12:18 96.4 86 16 143/89 99 Room Air I & O 06/02/16 07:00 Intake Total 1962 ml Output Total 1750 ml Balance 212 ml Capillary Refill : Less Than 3 Seconds General Appearance: No Apparent Distress Chronically ill HEENT: PERRL/EOMI Neck: Full Range of Motion Non Tender Supple Respiratory: Decreased Breath Sounds Cardiovascular: Regular Rate, Rhythm No JVD Gastrointestinal: normal bowel sounds non tender distended other (ileostomy bag with mostly liquid stool ) Extremity: Pedal Edema Neurologic/Psychiatric: Alert 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 Norm as Tested Results Lab Laboratory Tests 05/31/16 20:30 06/01/16 04:25 06/02/16 04:30 Laboratory Tests 06/02/16 04:30: Anion Gap 8, BUN/Creatinine Ratio 24, Basophils # (Auto) 0.0, Basophils (%) ( Auto) 1, Blood Urea Nitrogen 64H, Calcium Level 8.9, Carbon Dioxide Level 15L, Chloride Level 108H, Creatinine 2.67H, Eosinophils # (Auto) 0.3, Eosinophils (% ) (Auto) 7, Estimat Glomerular Filtration Rate 24, Glucose Level 146H, Hematocrit 31L, Hemoglobin 10.5L, Lymphocytes # (Auto) 0.5L, Lymphocytes (%) ( Auto) 10L, Mean Corpuscular Hemoglobin 24L, Mean Corpuscular Hemoglobin Concent 33, Mean Corpuscular Volume 71L, Mean Platelet Volume 10.2, Monocytes # (Auto) 1.0, Monocytes (%) (Auto) 21H, Neutrophils # (Auto) 2.9, Neutrophils (%) (Auto) 61, Platelet Count 291, Potassium Level 4.7, Red Blood Count 4.43, Red Cell Distribution Width 31.5H, Sodium Level 131L, White Blood Count 4.7 Assessment/Plan Assessment/Plan Assess & Plan/Chief Complaint 1 Abdominal Distension, nausea and vomiting--nausea, vomiting, and abdominal distention are improved today with conservative measures. Dr. Escoto's assessment noted and appreciated. 2. Dyspnea and persistent cough-Patient has no leukocytosis or fever; favor worsening metastatic disease over worsening pneumonia after review of chest x- ray. CEA elevated 484; 3. Metastatic colon cancer with extensive liver metastasis as well as widespread lung metastases, abdominal lymph nodes and omental and small bowel metastases; a. Chemotherapy has been discontinued because of poor tolerance and clinical deterioration; 4. Acute on chronic renal failure--careful IV hydration and monitor intake and output; 5. Palliative care--patient is considering signing up with [facility]. 7. Anxiety-continue anxiolytics 8. DVT prophylaxis-use SCDs as tolerated; Lovenox is poor choice with worsening renal function; Diagnosis/Problems: Clinical Quality Measures DVT/VTE Risk/Contraindication: Risk Factor Score Per Nursin RFS Level Per Nursing on Admit: 4+=Very High MEG MOISE MD Jun 02, 2016 11:59
[2016-06-02 16:17] VITALS: BP 120/79
[2016-06-02 20:00] VITALS: BP 137/85
[2016-06-02] MEDS: ZOLPIDEM 5 MG (AMBIEN) TAB PO SCH (20:34)
[2016-06-02] MEDS: ALPRAZolam 1 MG (XANAX) TAB PO PRN (21:14)
[2016-06-02] MEDS: FAMOTIDINE 20MG/2ML IV (PEPCID) IV SCH (21:14)
[2016-06-03] VITALS: BP 140/84
[2016-06-03 04:00] VITALS: BP 118/40
[2016-06-03 05:18] LABS: BASOPHILS # (AUTO) 0.1 10^3/uL (0.0-0.1); BASOPHILS % (AUTO) 2 % (0-10); EOSINOPHILS # (AUTO) 0.4 10^3/uL (0.0-0.3); EOSINOPHILS % (AUTO) 10 % (0-10); LYMPHOCYTES # (AUTO) 0.6 X 10^3 (1.0-4.0); LYMPHOCYTES % (AUTO) 15 % (12-44); MEAN CORPUSCULAR HEMOGLOBIN 24 PG (25-34); MEAN CORPUSCULAR HGB CONC 34 G/DL (32-36); MEAN CORPUSCULAR VOLUME 71 FL (80-99); MEAN PLATELET VOLUME 9.9 FL (7.4-10.4); MONOCYTES # (AUTO) 0.9 X 10^3 (0.0-1.0); MONOCYTES % (AUTO) 23 % (0-12); NEUTROPHILS # (AUTO) 1.9 X 10^3 (1.8-7.8); NEUTROPHILS % (AUTO) 51 % (42-75); PLATELET COUNT 316 10^3/uL (130-400); RED BLOOD COUNT 4.44 10^6/uL (4.35-5.85); RED CELL DISTRIBUTION WIDTH 31.9 % (10.0-14.5); WHITE BLOOD COUNT 3.8 10^3/uL (4.3-11.0)
[2016-06-03] MEDS: METOCLOPRAMIDE 5 MG (REGLAN) TAB PO SCH ×2 (06:01→12:24)
[2016-06-03 12:12] LABS: CALCIUM 8.6 MG/DL (8.5-10.1); CREATININE SERUM 2.46 MG/DL (0.60-1.30); POTASSIUM 4.7 MMOL/L (3.6-5.0)
[2016-06-03] MEDS: NS IV 1000 ML 1,000 ML IV SCH (12:24)
--- NOTE | 2016-06-03 12:59 | Discharge Inst-Simple/Standard ---
Discharge Inst-Standard Discharge Medications New, Converted or Re-Newed RX: RX Given to Pt/Family ( will pick up operator script for Xanax , others will be sent to pharmacy;) Patient Instructions/Follow Up Plan of Care/Instructions/FU: Patient is being discharged home with under care of [facility] Activity as Tolerated: Yes Discharge Diet: Regular Diet MEG MOISE MD Jun 03, 2016 12:59
--- NOTE | 2016-06-03 13:10 | Discharge Summary ---
Diagnosis/Chief Complaint Date of Admission May 31, 2016 at 15:15 Date of Discharge 2016 Discharge Date: Discharge Time: 13:05 Admission Diagnosis Admission Diagnosis 1 Abdominal Distension, nausea and vomiting--Consult with General Surgery; palliative management discussed with family; 2. Dyspnea and persistent cough-Patient has no leukocytosis or fever; reviewed Chest xray and I favor worsening metastatic disease over worsening pneumonia; a. We will consult Dr. Leon for evaluation and hold off on antibiotic therapy for now; 3. Metastatic colon cancer with extensive liver metastasis as well as widespread lung metastases, abdominal lymph nodes and omental and small bowel metastases; a. Chemotherapy has been discontinued because of poor tolerance and clinical deterioration; 4. Acute on chronic renal failure--careful IV hydration and monitor intake and output; 5. Palliative care/ Hospice consultation 7. Anxiety-administer anxiolytics 8. DVT prophylaxis-use SCDs as tolerated; Lovenox is poor choice with worsening renal function; Discharge Diagnosis 1 Abdominal Distension, nausea and vomiting--nausea, vomiting, and abdominal distention have resolved with conservative measures. 2. Dyspnea and persistent cough-Patient has no leukocytosis or fever; favor worsening metastatic disease after review of chest x-ray. CEA elevated 484; 3. Metastatic colon cancer with extensive liver metastasis as well as widespread lung metastases, abdominal lymph nodes and omental and small bowel metastases; a. Chemotherapy has been discontinued because of poor tolerance and clinical deterioration; 4. Acute on chronic renal failure--secondary to dehydration superimposed on chronic kidney disease, creatinine did improve with careful IV hydration; 5. Palliative care--patient did sign up with [facility]. 7. Anxiety-continue anxiolytics 8. DVT prophylaxis-use SCDs as tolerated; Lovenox is poor choice with worsening renal function; Reason Hospital Visit Jhonatan Walton is a 70-year-old male who is currently admitted with complaints of severe weakness, nausea and vomiting, and increased lower extremity swelling. He is admitted from the cancer center where he presented with these complaints accompanied by his , son and daughter. He was due for cycle number 3 of FOLFOX today. However when patient's symptoms along with creatinine elevation was noted patient was referred for admission. We have had a discussion regarding goals of management. Patient was admitted same day as cycle 2 of FOLFOX and was admitted prior to cycle number 1. Cat scans and CEA show worsening tumor load and patient is also developing worsening organ dysfunction. He states he does not want to be resuscitated. We have discussed hospice management and he is agreeable to this. Discharge Summary Hospital Course Hospital Course Patient improved with careful IV hydration, anti-emetics and anxiolytics. He has widely metastatic colon cancer and has been unable to tolerate chemotherapy. He has decided to sign up with hospice. He is stable for discharge today and is feeling much better. Labs Laboratory Tests 05/31/16 20:30: Blood Urea Nitrogen 72H, Carbon Dioxide Level 14L, Creatinine 3.21H, Glucose Level 213H, Hematocrit 32L, Hemoglobin 10.7L, Lymphocytes # (Auto) 0.5L, Lymphocytes (%) (Auto) 7L, Mean Corpuscular Hemoglobin 24L, Mean Corpuscular Volume 70L, Monocytes # (Auto) 1.1H, Monocytes (%) (Auto) 16H, Red Cell Distribution Width 31.0H, Sodium Level 127L 06/01/16 04:25: Blood Urea Nitrogen 71H, Carbon Dioxide Level 13L, Creatinine 2.99H, Glucose Level 134H, Hematocrit 31L, Hemoglobin 10.6L, Lymphocytes # (Auto) 0.5L, Lymphocytes (%) (Auto) 9L, Mean Corpuscular Hemoglobin 24L, Mean Corpuscular Volume 70L, Monocytes (%) (Auto) 18H, Red Cell Distribution Width 31.1H, Sodium Level 128L, Albumin 2.8L, Eosinophils # (Auto) 0.4H, Total Protein 5.8L 06/02/16 04:30: Blood Urea Nitrogen 64H, Carbon Dioxide Level 15L, Creatinine 2.67H, Glucose Level 146H, Hematocrit 31L, Hemoglobin 10.5L, Lymphocytes # (Auto) 0.5L, Lymphocytes (%) (Auto) 10L, Mean Corpuscular Hemoglobin 24L, Mean Corpuscular Volume 71L, Monocytes (%) (Auto) 21H, Red Cell Distribution Width 31.5H, Sodium Level 131L, Chloride Level 108H 06/03/16 05:00: Hematocrit 32L, Hemoglobin 10.8L, Lymphocytes # (Auto) 0.6L, Mean Corpuscular Hemoglobin 24L, Mean Corpuscular Volume 71L, Monocytes (%) (Auto) 23H, Red Cell Distribution Width 31.9H, Eosinophils # (Auto) 0.4H, White Blood Count 3.8L 06/03/16 11:50: Blood Urea Nitrogen 58H, Carbon Dioxide Level 15L, Chloride Level 109H, Creatinine 2.46H, Glucose Level 163H, Sodium Level 133L Laboratory Tests 06/02/16 04:30 06/03/16 05:00 06/03/16 11:50 Procedures None. Discharge Physical Examination Allergies: Coded Allergies: No Known Drug Allergies (Unverified , 04/28/16) Vitals & I&Os Vital Signs Date Time Temp Pulse Resp B/P Pulse Ox O2 Delivery O2 Flow Rate FiO2 06/03/16 04:00 97.6 87 18 118/40 99 Room Air General Appearance: Alert, Oriented X3, Cooperative HEENT: Atraumatic, PERRLA Cardiovascular: Regular Rate, Normal S1, Normal S2 Abdominal: Normal Bowel Sounds, Other (ileostomy in place with liquid stool in bag with no solid particles also noted.) Neuro: Normal Gait Psych/Mental Status: Mental Status NL Discharge Home Medications Reviewed and agree with Discharge Medication list on patient's Discharge Instruction sheet Instructions to Patient/Family Please see electonic discharge instructions given to patient. Clinical Quality Measures DVT/VTE Risk/Contraindication: Risk Factor Score Per Nursin RFS Level Per Nursing on Admit: 4+=Very High MEG MOISE MD Jun 03, 2016 13:10
[2016-06-03 14:20] VITALS: BP 140/89
--- NOTE | 2016-06-04 13:54 | Physician Query-General Query ---
Physician Query-General Query to Physician: Dear Provider; Admit Date: 05/31/16 Discharge Date: 06/03/16 The medical record reflects the following clinical scenario: History/Risk factors: met CA on chemo Clinical Findings: abdominal distention, N&V, dyspnea and persistent cough, dehydration, acute renal failure Treatment: IV hydration and conservative management Question: Can you specify the etiology of the abdominal distention, N&V, dyspnea and persistent cough? Please indicate the primary condition responsible for IP admission. If cancer, please specify causitive site. Please document a response in the Progress Notes or Discharge Summary. 1. abdominal distention is due to/associated with what etiology? 2. N&V is due to/associated with what etiology? 3. dyspnea is due to/associated with what etiology? 4. persistent cough is due to/associated with what etiology? 3. Other, with explanation of the clinical findings 4. Clinically undetermined, no explanation for the clinical findings Please remember a lack of response to the above will prompt a phone page by [facility]/ coding staff. In responding to this query, please exercise your independent professional judgment. The purpose of this communication is to more accurately reflect the complexity of your patients condition. The fact that a question is asked does not imply that any particular answer is desired or expected. Thank you for your timely response to this clarification. PHYSICIAN RESPONSE: Based on the clinical findings in the record, please respond to the query above on this document as an addendum. Possible, probable, or questionable diagnosis can be coded for INPATIENTS ONLY. Physician Response: 1. The abdominal distention is arising from the patient's known metastatic colon cancer with small bowel and peritoneal extension. The extensive small bowel and peritoneal involvement are likely causing intermittent partial small bowel obstruction. 2. Nausea and vomiting is arising from the metastatic colon cancer with extensive peritoneal and small bowel involvement as described in number 1 above. 3 patient's dyspnea on admission over those from dehydration as well as extensive lung metastasis. 4. His persistent cough is related to his metastatic lung disease arising from his metastatic colon primary. Physician Response Physician Response: 1. The abdominal distention is arising from the patient's known metastatic colon cancer with small bowel and peritoneal extension. The extensive small bowel and peritoneal involvement are likely causing intermittent partial small bowel obstruction. 2. Nausea and vomiting is arising from the metastatic colon cancer with extensive peritoneal and small bowel involvement as described in number 1 above. 3 patient's dyspnea on admission over those from dehydration as well as extensive lung metastasis. 4. His persistent cough is related to his metastatic lung disease arising from his metastatic colon primary. If you have questions please contact: Manager Ccu: Keyur Ext: [phone] Thank you for your time and cooperation. Clinical Commercial Intelligence Manager/Manager Ccu This is a permanent part of the medical record KEYUR HOU Jun 04, 2016 13:54 MEG MOISE MD Jun 05, 2016 16:19
== END 2016-06-03 14:20 | disposition hospice, home (50) | DRG 389 ==
LOC: ICU 15:15
PROVIDERS: ADMIT Internal Medicine Hematology & Oncology; ATTEND Internal Medicine Hematology & Oncology
DX: K56.69 Other intestinal obstruction (principal); C78.4 Secondary malignant neoplasm of small intestine; C78.6 Secondary malignant neoplasm of retroperitoneum and peritoneum; C78.01 Secondary malignant neoplasm of right lung; C78.02 Secondary malignant neoplasm of left lung; C78.7 Secondary malignant neoplasm of liver and intrahepatic bile duct; C77.2 Secondary and unspecified malignant neoplasm of intra-abdominal lymph nodes; Z66 Do not resuscitate; Z51.5 Encounter for palliative care; N18.9 Chronic kidney disease, unspecified; N17.9 Acute kidney failure, unspecified; E86.0 Dehydration; E11.22 Type 2 diabetes mellitus with diabetic chronic kidney disease; K21.9 Gastro-esophageal reflux disease without esophagitis; F41.9 Anxiety disorder, unspecified; Z93.2 Ileostomy status; Z85.038 Personal history of other malignant neoplasm of large intestine
CPT/HCPCS: 36415; 71010; 80048; 80053; 85025

== ENCOUNTER 2016-06-14 12:52 | Outpatient (RCR) | payer OTHER, MEDICARE ==
--- OUTSIDE RECORDS SUMMARY | 2016-04-20 09:05 | XMS REPORT | Continuity of Care Document ---
Author Author [facility] Organization [facility] Address Unknown Phone Unavailable Support Name Relationship Address Phone VIELKA MENDOZA MD Caregiver #1 [facility] [place] [address] [address] Insurance Providers Payer Name Policy Number Subscriber Name Relationship [place] [employer] [id number] Jeni Campoverde 19 Self / Same As Patient Advance Directives Directive Response Recorded Date/Time Advance Directives No 03/31/16 11:06am Health Care Power of City Route Driver No 03/31/16 11:06am Organ Donor No 03/31/16 11:06am Resuscitation Status Full Code 03/31/16 11:06am Problems No problem information available. Medications Current Home Medications Medication Dose Units Route Directions Days/Qty Instructions Start Date Cinnamon Bark 500 Mg 500 Mg Oral Twice A Day 03/23/16 Turmeric Root Extract 500 Mg 500 Mg Oral Twice A Day 03/23/16 Cholecalciferol (Vitamin D3) 2,000 Unit 4,000 Unit Oral Daily TAKES 2 ( 2,000 UNITS) CAPSULES 03/23/16 U[place]es/[place]/ Bt-Org Peel/Gr T 1 Each 1 Tab Oral Twice A Day Cefdinir (Omnicef) 300 Mg 300 Mg Oral Twice A Day FILLED #60 03-09-16 03/23/16 Lisinopril 10 Mg 10 Mg Oral Bedtime 03/23/16 Glyburide/Metformin Hcl 1 Each 1 Tab Oral Twice A Day 03/23/16 [Energy Supplement] 2 Tab Oral Daily 03/29/16 Past Home Medications Medication Directions Ordered Status Multivitamin 1 Each Tablet, 1 Each Oral Daily 03/23/16 Discontinued Aspirin 81 Mg Tablet., 81 Mg Oral Daily 03/23/16 Discontinued Aspirin 81 Mg Tablet., 81 Mg Oral Bedtime 03/29/16 Discontinued Social History Social History Problem Response Recorded Date/Time Alcohol Use Denies Use 03/31/2016 11:08am Recreational Drug Use No 03/31/2016 11:08am Recent Foreign Travel No 03/31/2016 11:05am Recent Infectious Disease Exposure No 03/31/2016 11:05am Smoking Status Never a Smoker 03/31/2016 11:06am Recent Hopitalizations Y colon obstruction 03/31/2016 11:08am Query Response Start Date Stop Date Smoking Status Never a Smoker Hospital Discharge Instructions No hospital discharge instructions. Plan of Care Discharge Date 03/31/16 11:15am Prescriptions See Medication Section Functional Status No functional status results. Allergies, Adverse Reactions, Alerts No known allergies. Immunizations Name Given Type FLU TRIvalent 5 years - Adult 03/29/16 Administered Vital Signs Acute Vital Signs Vital Response Date/Time Temperature (Fahrenheit) 97.6 degrees F (97.6 - 99.5) 03/29/2016 5:18pm Temperature (Calculated Celsius) 36.60977 degrees C (36.4 - 37.5) 03/29/2016 4:00pm Temperature Source Tympanic 03/29/2016 5:18pm Pulse Rate (adult) 74 bpm (60 - 90) 03/29/2016 5:18pm Respiratory Rate 20 bpm (12 - 24) 03/29/2016 5:18pm O2 Sat by Pulse Oximetry 96 % (88 - 100) 03/29/2016 5:18pm Blood Pressure 137/64 mm Hg 03/29/2016 5:18pm Blood Pressure Mean 88 mm Hg 03/29/2016 4:00pm Pain Numeric Pain Scale 0-No Pain 03/29/2016 5:18pm Height (Feet) 5 feet 03/31/2016 11:05am Height (Inches) 9.00 inches 03/31/2016 11:05am Height (Calculated Centimeters) 175.230056 cm 03/31/2016 11:05am Weight (Pounds) 236 pounds 03/31/2016 11:05am Weight (Ounces) 0.0 oz 03/31/2016 11:05am Weight (Calculated Grams) 973102.80 gm 03/31/2016 11:05am Weight (Calculated Kilograms) 107.695209 kilograms 03/31/2016 11:05am Calculated BMI 34.9 03/31/2016 11:05am Results Pending Laboratory Results Test Name Collection Date/Time Procedures Procedure Status Date Provider(s) Tracing only of electrocardiogram Completed 03/27/16 VIELKA MENDOZA MD Encounters Encounter Location Arrival/Admit Date Discharge/Depart Date Attending Provider Departed Clinic [facility] 03/31/16 10:00am 03/31/16 11: 15am VIELKA MENDOZA MD Discharged Inpatient [facility] 03/26/16 11:56pm 6:05pm VIELKA MENDOZA MD Departed Clinic [facility] 03/22/16 1:18pm 03/22/16 3: 00pm AREN ANTHONY DO
[2016-04-20 09:51] LABS: BASOPHILS % (AUTO) 0 % (0-10); EOSINOPHILS # (AUTO) 0.3 10^3/uL (0.0-0.3); EOSINOPHILS % (AUTO) 3 % (0-10); LYMPHOCYTES # (AUTO) 0.7 X 10^3 (1.0-4.0); LYMPHOCYTES % (AUTO) 7 % (12-44); MEAN CORPUSCULAR HGB CONC 32 G/DL (32-36); MEAN CORPUSCULAR VOLUME 63 FL (80-99); MEAN PLATELET VOLUME 10.5 FL (7.4-10.4); MONOCYTES # (AUTO) 1.3 X 10^3 (0.0-1.0); MONOCYTES % (AUTO) 14 % (0-12); NEUTROPHILS # (AUTO) 6.8 X 10^3 (1.8-7.8); NEUTROPHILS % (AUTO) 75 % (42-75); PLATELET COUNT 668 10^3/uL (130-400); RED BLOOD COUNT 5.13 10^6/uL (4.35-5.85); RED CELL DISTRIBUTION WIDTH 22.6 % (10.0-14.5)
[2016-04-20 09:52] LABS: MEAN CORPUSCULAR HEMOGLOBIN 20 PG (25-34)
[2016-04-20 10:38] LABS: ALANINE AMINOTRANSFERASE 61 U/L (0-55); ALBUMIN 3.7 G/DL (3.2-4.5); ANION GAP 12 MMOL/L (5-14); ASPARTATE AMINO TRANSFERASE 38 U/L (5-34); BILIRUBIN,TOTAL 0.6 MG/DL (0.1-1.0); BLOOD UREA NITROGEN 22 MG/DL (7-18); BUN/CREATININE RATIO 22; CALCIUM 9.1 MG/DL (8.5-10.1); CARBON DIOXIDE 20 MMOL/L (21-32); CHLORIDE 97 MMOL/L (98-107); CREATININE SERUM 1.02 MG/DL (0.60-1.30); GFR ESTIMATED > 60; GLUCOSE 112 MG/DL (70-105); POTASSIUM 5.4 MMOL/L (3.6-5.0); SODIUM 129 MMOL/L (135-145)
[2016-04-20 14:30] LABS: %SAT TOTAL IRON BINDING CAPIC 5 % (15-50); TIBC 341 ug/dL (280-380)
[2016-04-20 15:23] LABS: UIBC 325 ug/dL (55-450)
[2016-04-21 07:58] LABS: FERRITIN 39 ng/mL (25-300)
[2016-04-28 10:35] LABS: BASOPHILS % (AUTO) 0 % (0-10); EOSINOPHILS # (AUTO) 0.2 10^3/uL (0.0-0.3); EOSINOPHILS % (AUTO) 2 % (0-10); LYMPHOCYTES # (AUTO) 0.6 X 10^3 (1.0-4.0); LYMPHOCYTES % (AUTO) 5 % (12-44); MEAN CORPUSCULAR HEMOGLOBIN 21 PG (25-34); MEAN CORPUSCULAR HGB CONC 34 G/DL (32-36); MEAN CORPUSCULAR VOLUME 63 FL (80-99); MEAN PLATELET VOLUME 9.6 FL (7.4-10.4); MONOCYTES # (AUTO) 1.1 X 10^3 (0.0-1.0); MONOCYTES % (AUTO) 9 % (0-12); NEUTROPHILS # (AUTO) 10.1 X 10^3 (1.8-7.8); NEUTROPHILS % (AUTO) 84 % (42-75); PLATELET COUNT 485 10^3/uL (130-400); RED BLOOD COUNT 5.19 10^6/uL (4.35-5.85); RED CELL DISTRIBUTION WIDTH 24.4 % (10.0-14.5)
[2016-04-28 11:07] LABS: ALBUMIN 3.7 G/DL (3.2-4.5); BILIRUBIN,TOTAL 0.6 MG/DL (0.1-1.0); CALCIUM 9.6 MG/DL (8.5-10.1); CREATININE SERUM 1.22 MG/DL (0.60-1.30); TOTAL PROTEIN 7.5 G/DL (6.4-8.2)
[2016-04-28 11:42] LABS: POTASSIUM 6.6 MMOL/L (3.6-5.0)
[2016-04-28 12:19] LABS: POTASSIUM 6.7 MMOL/L (3.6-5.0)
[2016-05-03 15:23] LABS: BASOPHILS % (AUTO) 0 % (0-10); EOSINOPHILS # (AUTO) 0.2 10^3/uL (0.0-0.3); EOSINOPHILS % (AUTO) 2 % (0-10); LYMPHOCYTES # (AUTO) 0.7 X 10^3 (1.0-4.0); LYMPHOCYTES % (AUTO) 7 % (12-44); MEAN CORPUSCULAR HEMOGLOBIN 21 PG (25-34); MEAN CORPUSCULAR HGB CONC 33 G/DL (32-36); MEAN CORPUSCULAR VOLUME 64 FL (80-99); MEAN PLATELET VOLUME 10.2 FL (7.4-10.4); MONOCYTES # (AUTO) 1.1 X 10^3 (0.0-1.0); MONOCYTES % (AUTO) 11 % (0-12); NEUTROPHILS # (AUTO) 8.2 X 10^3 (1.8-7.8); NEUTROPHILS % (AUTO) 80 % (42-75); PLATELET COUNT 445 10^3/uL (130-400); RED BLOOD COUNT 5.33 10^6/uL (4.35-5.85); RED CELL DISTRIBUTION WIDTH 25.3 % (10.0-14.5); WHITE BLOOD COUNT 10.3 10^3/uL (4.3-11.0)
[2016-05-03 16:14] LABS: CALCIUM 9.3 MG/DL (8.5-10.1); CREATININE SERUM 1.23 MG/DL (0.60-1.30); MAGNESIUM 1.9 MG/DL (1.8-2.4); POTASSIUM 5.7 MMOL/L (3.6-5.0)
[2016-05-06 14:51] LABS: CARBON DIOXIDE 17 MMOL/L (21-32); CHLORIDE 99 MMOL/L (98-107); POTASSIUM 5.5 MMOL/L (3.6-5.0)
[2016-05-06 14:52] LABS: ALANINE AMINOTRANSFERASE 25 U/L (0-55); ALBUMIN 3.6 G/DL (3.2-4.5); ANION GAP 9 MMOL/L (5-14); ASPARTATE AMINO TRANSFERASE 16 U/L (5-34); BILIRUBIN,TOTAL 0.3 MG/DL (0.1-1.0); BLOOD UREA NITROGEN 40 MG/DL (7-18); BUN/CREATININE RATIO 34; CALCIUM 9.4 MG/DL (8.5-10.1); CREATININE SERUM 1.16 MG/DL (0.60-1.30); GFR ESTIMATED > 60; GLUCOSE 233 MG/DL (70-105); TOTAL PROTEIN 6.9 G/DL (6.4-8.2)
[2016-05-06 14:54] LABS: SODIUM 125 MMOL/L (135-145)
[2016-05-11 12:40] LABS: BASOPHILS % (AUTO) 0 % (0-10); EOSINOPHILS # (AUTO) 0.1 10^3/uL (0.0-0.3); EOSINOPHILS % (AUTO) 1 % (0-10); LYMPHOCYTES # (AUTO) 0.5 X 10^3 (1.0-4.0); LYMPHOCYTES % (AUTO) 5 % (12-44); MEAN CORPUSCULAR HEMOGLOBIN 22 PG (25-34); MEAN CORPUSCULAR HGB CONC 34 G/DL (32-36); MEAN CORPUSCULAR VOLUME 65 FL (80-99); MEAN PLATELET VOLUME 10.1 FL (7.4-10.4); MONOCYTES # (AUTO) 0.5 X 10^3 (0.0-1.0); MONOCYTES % (AUTO) 6 % (0-12); NEUTROPHILS # (AUTO) 8.1 X 10^3 (1.8-7.8); NEUTROPHILS % (AUTO) 88 % (42-75); PLATELET COUNT 368 10^3/uL (130-400); RED BLOOD COUNT 5.74 10^6/uL (4.35-5.85); RED CELL DISTRIBUTION WIDTH 26.4 % (10.0-14.5); WHITE BLOOD COUNT 9.2 10^3/uL (4.3-11.0)
[2016-05-11 12:55] LABS: CALCIUM 9.4 MG/DL (8.5-10.1); CREATININE SERUM 1.36 MG/DL (0.60-1.30); MAGNESIUM 1.9 MG/DL (1.8-2.4); POTASSIUM 5.3 MMOL/L (3.6-5.0)
[2016-05-18 10:05] LABS: BASOPHILS % (AUTO) 1 % (0-10); EOSINOPHILS # (AUTO) 0.2 10^3/uL (0.0-0.3); EOSINOPHILS % (AUTO) 3 % (0-10); LYMPHOCYTES # (AUTO) 0.5 X 10^3 (1.0-4.0); LYMPHOCYTES % (AUTO) 8 % (12-44); MEAN CORPUSCULAR HEMOGLOBIN 22 PG (25-34); MEAN CORPUSCULAR HGB CONC 33 G/DL (32-36); MEAN CORPUSCULAR VOLUME 67 FL (80-99); MONOCYTES % (AUTO) 15 % (0-12); NEUTROPHILS # (AUTO) 4.9 X 10^3 (1.8-7.8); NEUTROPHILS % (AUTO) 74 % (42-75); PLATELET COUNT 272 10^3/uL (130-400); RED BLOOD COUNT 5.08 10^6/uL (4.35-5.85); RED CELL DISTRIBUTION WIDTH 28.9 % (10.0-14.5); WHITE BLOOD COUNT 6.7 10^3/uL (4.3-11.0)
[2016-05-18 10:22] LABS: ALBUMIN 3.2 G/DL (3.2-4.5); BILIRUBIN,TOTAL 0.3 MG/DL (0.1-1.0); CALCIUM 8.9 MG/DL (8.5-10.1); CREATININE SERUM 1.29 MG/DL (0.60-1.30); MAGNESIUM 1.9 MG/DL (1.8-2.4); TOTAL PROTEIN 6.1 G/DL (6.4-8.2)
[2016-05-31 13:20] LABS: BASOPHILS # (AUTO) 0.1 10^3/uL (0.0-0.1); BASOPHILS % (AUTO) 1 % (0-10); EOSINOPHILS # (AUTO) 0.2 10^3/uL (0.0-0.3); EOSINOPHILS % (AUTO) 4 % (0-10); LYMPHOCYTES # (AUTO) 0.5 X 10^3 (1.0-4.0); LYMPHOCYTES % (AUTO) 7 % (12-44); MEAN CORPUSCULAR HEMOGLOBIN 23 PG (25-34); MEAN CORPUSCULAR HGB CONC 34 G/DL (32-36); MEAN CORPUSCULAR VOLUME 69 FL (80-99); MEAN PLATELET VOLUME 9.6 FL (7.4-10.4); MONOCYTES # (AUTO) 0.9 X 10^3 (0.0-1.0); MONOCYTES % (AUTO) 14 % (0-12); NEUTROPHILS # (AUTO) 4.9 X 10^3 (1.8-7.8); NEUTROPHILS % (AUTO) 75 % (42-75); PLATELET COUNT 287 10^3/uL (130-400); RED BLOOD COUNT 4.42 10^6/uL (4.35-5.85); RED CELL DISTRIBUTION WIDTH 31.4 % (10.0-14.5); WHITE BLOOD COUNT 6.5 10^3/uL (4.3-11.0)
[2016-05-31 13:49] LABS: ALBUMIN 2.8 G/DL (3.2-4.5); BILIRUBIN,TOTAL 0.3 MG/DL (0.1-1.0); CALCIUM 9.4 MG/DL (8.5-10.1); CREATININE SERUM 3.23 MG/DL (0.60-1.30); MAGNESIUM 1.7 MG/DL (1.8-2.4); POTASSIUM 4.7 MMOL/L (3.6-5.0); TOTAL PROTEIN 5.7 G/DL (6.4-8.2)
[~2016-06-14] VITALS: Ht 172.7 cm; Wt 91.2 kg
[~2016-06-14 12:52] MED LIST changes: +D5W 500 ML IV (CANCER CTR) 500 ML IV SCH; +FAMOTIDINE 20MG/2ML IV (CANCER CTR) IV SCH; +FERRIC CARBOXYMALTOSE (CANCER) 750 MG in NS (IVPB) CANCER CENTER 250 ML IV SCH; +FLUOROURACIL IV SCH; +LEUCOVORIN CALCIUM 800 MG in D5W 250 ML IVPB (CANCER CTR) 250 ML IV SCH; +LORazepam 0.5 MG (ATIVAN) TABLET CANCER CTR PO PRN; +NS IV 1000 ML (CANCER CTR) 1,000 ML ONE; +NS IV ONE; +ONDANSETRON 16 MG, DEXAMETHASONE 10 MG/NS 50 ML IVPB IV SCH; +ONDANSETRON IV ONE; +OXALIPLATIN 170 MG in D5W 250 ML IVPB (CANCER CTR) 250 ML IV SCH; +diphenhydrAMINE 25 MG TAB (BENADRYL) CANCER CENTER PO SCH
[2016-06-14 13:22] LABS: BASOPHILS # (AUTO) 0.1 10^3/uL (0.0-0.1); BASOPHILS % (AUTO) 1 % (0-10); EOSINOPHILS # (AUTO) 0.2 10^3/uL (0.0-0.3); EOSINOPHILS % (AUTO) 2 % (0-10); LYMPHOCYTES # (AUTO) 0.5 X 10^3 (1.0-4.0); LYMPHOCYTES % (AUTO) 6 % (12-44); MEAN CORPUSCULAR HEMOGLOBIN 25 PG (25-34); MEAN CORPUSCULAR HGB CONC 33 G/DL (32-36); MEAN CORPUSCULAR VOLUME 75 FL (80-99); MEAN PLATELET VOLUME 9.3 FL (7.4-10.4); MONOCYTES % (AUTO) 13 % (0-12); NEUTROPHILS # (AUTO) 6.2 X 10^3 (1.8-7.8); NEUTROPHILS % (AUTO) 78 % (42-75); PLATELET COUNT 383 10^3/uL (130-400); RED BLOOD COUNT 4.58 10^6/uL (4.35-5.85)
[2016-06-14 13:54] LABS: ALBUMIN 2.9 G/DL (3.2-4.5); BILIRUBIN,TOTAL 0.2 MG/DL (0.1-1.0); CALCIUM 9.1 MG/DL (8.5-10.1); CREATININE SERUM 2.35 MG/DL (0.60-1.30); MAGNESIUM 1.4 MG/DL (1.8-2.4); POTASSIUM 5.2 MMOL/L (3.6-5.0); TOTAL PROTEIN 6.7 G/DL (6.4-8.2)
== END 2016-07-19 | disposition home or self-care (01) ==
LOC: ONC 12:52
PROVIDERS: ATTEND Internal Medicine Hematology & Oncology
DX: Z51.11 Encounter for antineoplastic chemotherapy (principal); C18.7 Malignant neoplasm of sigmoid colon; C18.0 Malignant neoplasm of cecum; C77.2 Secondary and unspecified malignant neoplasm of intra-abdominal lymph nodes; C77.1 Secondary and unspecified malignant neoplasm of intrathoracic lymph nodes; C78.7 Secondary malignant neoplasm of liver and intrahepatic bile duct; C78.6 Secondary malignant neoplasm of retroperitoneum and peritoneum; D50.9 Iron deficiency anemia, unspecified; I10 Essential (primary) hypertension; E11.9 Type 2 diabetes mellitus without complications; I44.7 Left bundle-branch block, unspecified; Z82.49 Family history of ischemic heart disease and other diseases of the circulatory system
CPT/HCPCS: 36415; 36591; 80048; 80053; 82378; 82728; 83540; 83735; 84132; 84295; 85025; 96361; 96365; 96368; 96374; 96375; 96411; 96413; 96415; 96416; 96521; 99213; 99214